=== PATIENT | female | born 1965 | race Caucasian/White ===

== ENCOUNTER 2017-06-06 06:33 | Inpatient (IN) | payer MEDICARE ==
[2017-06-06] VITALS (9 sets, daily range): BP systolic 94–121; BP diastolic 53–68
[~2017-06-06] VITALS: Ht 175.3 cm; Wt 107.0 kg
[2017-06-06] MEDS ORDERED: IV RINGERS,LACTATED 1000ML 1,000 ML IV SCH (07:00)
[2017-06-06] MEDS ORDERED: fentaNYL PF VIAL 100 MCG/2 ML VIAL IV PRN (07:00)
[2017-06-06] MEDS ORDERED: PROCHLORPERAZINE 10 MG/2 ML VIAL. IV PRN (07:00)
[2017-06-06] MEDS ORDERED: HYDROmorphone 2 MG/ML VIAL IV PRN (07:00)
[2017-06-06] MEDS ORDERED: LIDOCAINE 1% PF 2 ML VIAL. ID PRN (07:00)
[2017-06-06] MEDS ORDERED: ONDANSETRON PF 4 MG/2 ML VIAL. IV PRN (07:00)
[2017-06-06] MEDS ORDERED: HYDR4TAB PO (07:01)
[2017-06-06] MEDS ORDERED: HYDR4TAB IV (07:03)
[2017-06-06] MEDS ORDERED: FENT1PAT15 TP (07:03)
[2017-06-06] MEDS ORDERED: SODI20VI2 IV (07:04)
[2017-06-06] MEDS ORDERED: PANT40TA5 PO (07:05)
[2017-06-06] MEDS ORDERED: ESCITALOPRAM OXA5 M1 PO (07:05)
[2017-06-06] MEDS ORDERED: LEVO100T5 IV (07:06)
[2017-06-06] MEDS ORDERED: PROM6.25 IV (07:07)
[2017-06-06] MEDS ORDERED: TRAZ300T2 PO (07:09)
[2017-06-06] MEDS ORDERED: HEPA1DIS12 SUBCUT/PO (07:09)
[2017-06-06] MEDS ORDERED: LORA0.5T PO (07:10)
[2017-06-06] MEDS ORDERED: DIPH50CA PO (07:11)
[2017-06-06] MEDS ORDERED: ACET500T68 PO (07:17)
[2017-06-06 07:33] LABS: HEMOGLOBIN 10.4 g/dL (12.0-15.5)
[2017-06-06 07:37] LABS: INR 1.1 (0.8-1.1); PROTHROMBIN TIME PATIENT 13.6 SEC (11.7-14.0)
[2017-06-06] MEDS ORDERED: PROPOFOL 20 ML IV ONE (07:38)
[2017-06-06] MEDS ORDERED: ROCURONIUM 50 MG/5 ML VIAL. ONE (07:38)
[2017-06-06] MEDS ORDERED: fentaNYL PF VIAL 250 MCG/5 ML VIAL ONE ×2 (07:38→12:38)
[2017-06-06] MEDS ORDERED: MIDAZOLAM HCL/PF 2 MG/2 ML VIAL. ONE (07:38)
[2017-06-06] MEDS ORDERED: LIDOCAINE 2% PF Vial for OR 5 ML VIAL. ONE (07:38)
[2017-06-06 07:51] LABS: CALCIUM 9.4 mg/dL (8.5-10.1); CREATININE 0.8 mg/dL (0.6-1.0); GFR 75.6; POTASSIUM 4.1 mmol/L (3.5-5.1)
--- NOTE | 2017-06-06 08:11 | PDOC ---
SURGICAL PROGRESS NOTE Subjective Pre-Op Note 52 yo F with ECF. Pt examined. Office note H&P reviewed and unchanged. Previous mesh has fallen off. R/B/A d/w pt and pt's family. Risks, including, but not limited to: bleeding, infection, damage to surrounding structures, risk of anesthesia. They appear to understand, their questions are answered and they agree to proceed. Vital Signs Vital Signs Date Time Temp Pulse Resp B/P (MAP) Pulse Ox O2 Delivery O2 Flow Rate FiO2 06/06/17 07:24 97.6 84 16 97/59 94 Room Air 97.6 Labs Laboratory Tests Test 06/06/17 06:40 Hemoglobin 10.4 g/dL (12.0-15.5) Hematocrit 32.0 % (36.0-47.0) Mean Corpuscular Hemoglobin Concent 33 g/dL (31-37) Prothrombin Time 13.6 SEC (11.7-14.0) Prothromb Time International Ratio 1.1 (0.8-1.1) Activated Partial Thromboplast Time 27 SEC (24-38) Heparin Anti-Xa Act, Unfractionated < 0.10 IU/mL (0.30-0.70) Sodium Level 136 mmol/L (136-145) Potassium Level 4.1 mmol/L (3.5-5.1) Chloride Level 98 mmol/L (98-107) Carbon Dioxide Level 27 mmol/L (21-32) Anion Gap 11 (6-14) Blood Urea Nitrogen 19 mg/dL (7-20) Creatinine 0.8 mg/dL (0.6-1.0) Estimated GFR (Cockcroft-Gault) 75.6 Glucose Level 126 mg/dL (70-99) Calcium Level 9.4 mg/dL (8.5-10.1) Laboratory Tests Test 06/06/17 06:40 Hemoglobin 10.4 g/dL (12.0-15.5) Hematocrit 32.0 % (36.0-47.0) Mean Corpuscular Hemoglobin Concent 33 g/dL (31-37) Prothrombin Time 13.6 SEC (11.7-14.0) Prothromb Time International Ratio 1.1 (0.8-1.1) Activated Partial Thromboplast Time 27 SEC (24-38) Heparin Anti-Xa Act, Unfractionated < 0.10 IU/mL (0.30-0.70) Sodium Level 136 mmol/L (136-145) Potassium Level 4.1 mmol/L (3.5-5.1) Chloride Level 98 mmol/L (98-107) Carbon Dioxide Level 27 mmol/L (21-32) Anion Gap 11 (6-14) Blood Urea Nitrogen 19 mg/dL (7-20) Creatinine 0.8 mg/dL (0.6-1.0) Estimated GFR (Cockcroft-Gault) 75.6 Glucose Level 126 mg/dL (70-99) Calcium Level 9.4 mg/dL (8.5-10.1) HAKEEM CANNON MD Jun 06, 2017 08:11
[2017-06-06] MEDS ORDERED: SEVOFLURANE > 120 MINUTES. IH ONE (09:04)
[2017-06-06] MEDS ORDERED: SURGICEL HEMOSTAT 4X8 EACH. ONE (09:06)
[2017-06-06] MEDS ORDERED: SURGICEL HEMOSTAT 4X8 EACH. TP ONE (09:07)
[2017-06-06] MEDS ORDERED: ROCURONIUM 100 MG/10 ML VIAL. ONE (09:08)
[2017-06-06] MEDS ORDERED: ALBUMIN HUMAN 5% 500 ML IV ONE (13:36)
[2017-06-06] MEDS ORDERED: GLYCOPYRROLATE 1 MG/5 ML VIAL. ONE (13:57)
[2017-06-06] MEDS ORDERED: NEOSTIGMINE 10 MG/10 ML VIAL. ONE (13:57)
[2017-06-06] MEDS ORDERED: IV NORMAL SALINE 1000ML BAG 1,000 ML IV SCH (14:41)
[2017-06-06] MEDS ORDERED: NALOXONE 0.4 MG/ML VIAL. IV PRN (14:45)
[2017-06-06] MEDS ORDERED: MORPHINE SULFATE/PF 30 ML IV PRN (14:45)
[2017-06-06] MEDS ORDERED: 0.9 % SODIUM CHLORIDE 10 ML DISP.SYRIN. IV PRN (14:45)
--- NOTE | 2017-06-06 15:09 | PDOC4 ---
OPERATIVE NOTE Date: Date: Jun 06, 2017 Pre-Op Diagnosis: Enterocutaneous fistula Post-Op Diagnosis: same Procedure Performed: Exploratory laparotomy, extensive lysis of adhesions, Excision of enterocutaneous fistula, ileocolic resection, liver laceration repair, ventral incisional hernia repair, debridement of abdominal wall wound Surgeon: Govind Cannon Asst: Justin Campos Anesthesia Type: GETA Blood Loss: 500 Specimans Obtained: colon resection, ECF Findings: Locked in abdomen, small bowel fistula to abdominal wall with related foreign bodies (mesh), adherent colon to pelvis Complications: Liver laceration (inherent to the procedure) Operative Note: After obtaining informed consent, patient was taken to the OR, induced under GETA, and prepped in the usual fashion. Patient noted to have large granulation wound with draining ECF on the right side. Previous mesh has fallen off, but additional mesh debris noted in wound and throughout the abdominal cavity and removed. Patient morbidly obese making procedure difficult throughout. Upper midline incision made away from wound. Fascia entered and liver (fatty in nature) directly below it. Laceration (inherent to the procedure) repaired with cautery and surgicel, without difficulty. Abdominal cavity was locked in with extensive adhesions. An extensive lysis of adhesions was performed, which was the majority of the procedure. One serosal tear was repaired with 3 0 vicryl. The right colon was redundant and extremely adherent to the bladder and deep pelvis. No bladder injury was noted to the bladder. The right ureter was identified by the Liz sign and maintain without injury. Sigmoid colon protected the left ureter and was uninjured. Appendix was surgically absent. Gallbladder surgically absent. Evidence of previous small bowel resection noted with anastomosis to the right colon. Right colon denuded and devascularized with mobilization and adhesiolysis. The abdominal wall wound debrided off, with care taken to take off additional adherent small bowel and transverse colon, which were uninjured. This wound had a segment of small bowel attached. This was resected with LIUDMILA stapler 75. Additionally, the nonviable cecum and terminal ileum were resected with LIUDMILA staplers. Specimens passed off the field and sent to pathology. Patient had short length of bowel prior to resection, approximately 100 cm. After resection , approximately 80 cm remained. A side to side ileocolic anastomosis performed with 75 LIUDMILA stapler and sealed with TA 60. Mesentery closed with 3 0 chromic. Anastomosis noted to be patent, under no tension, and completely viable, without evidence of leak. Abdominal cavity copiously irrigated. No evidence of bleeding or other pathology noted at time of closure. Fascia reapproximated with 0 PDS looped. Retention sutures placed with 1 PDS through fascia only. Wound reapproximated with Multiple interrupted 0 neurolon with a susan place in subcutaneous tissue. Sterile dressing placed over wound. Patient tolerated procedure well. Patient noted for concern for aspiration in PACU. Will be transferred to ICU and placed on antibiotics. Wound class is dirty given fistula. All counts were correct. GOVIND CANNON MD Jun 06, 2017 15:09
[2017-06-06] MEDS: fentaNYL PF VIAL 100 MCG/2 ML VIAL IV PRN ×2 (15:35→16:11)
--- NOTE | 2017-06-06 16:00 | RAD ---
AP view of the abdomen History: Postoperative KUB. Exploratory laparotomy. Findings: Tip of an NG tube is seen within the proximal body of the stomach. Surgical drain is seen within the midline of the abdomen. Multiple densities or calcifications are seen throughout the abdomen and pelvis which may represent residual contrast or medication within the bowel. No obstructive bowel pattern is seen. IMPRESSION: No obstructive bowel pattern or postoperative functional ileus is seen.
--- NOTE | 2017-06-06 16:01 | RAD ---
Portable AP supine chest x-ray performed at 1542 Clinical indications: intubation Comparison: None available. Findings: ET tube is in place and the tip is located 2 cm above the level of the melecio. NG tube is in place and the tip is seen within the proximal body of the stomach. Small left-sided pleural effusion and left lung base infiltrate are seen. Right lung field appears clear. No pneumothorax is evident. Left upper extremity PICC line tip is seen within the left subclavian vein. Surgical pins are seen within the left midlung zone. There is a deformity of the lateral aspect of the left sixth rib consistent with an old healed fracture. Heart size and mediastinum are unremarkable. IMPRESSION: Small left sided pleural effusion and left lung base infiltrate. Left upper extremity PICC line tip is seen within the left subclavian vein.
[2017-06-06] MEDS: MORPHINE SULFATE 4 MG/ML DISP.SYRIN. IV PRN ×4 (16:12→16:51)
[2017-06-06] MEDS: IV RINGERS,LACTATED 1000ML 1,000 ML IV SCH (16:16)
[2017-06-06 16:19] LABS: HCO3 ABG 19 mmol/L (21-28); PCO2 ABG 40 mmHg (35-46); PH ABG 7.29 (7.35-7.45); PO2 ABG 119 mmHg (75-108); SAT O2 ABG 97 % (92-99)
[2017-06-06] MEDS: ENOXAPARIN 40 MG/0.4 ML SYRINGE. SQ SCH (18:16)
--- NOTE | 2017-06-06 18:56 | PDOC ---
PULMONARY PROGRESS NOTES Vitals Vital Signs Date Time Temp Pulse Resp B/P (MAP) Pulse Ox O2 Delivery O2 Flow Rate FiO2 06/06/17 18:15 123 26 119/57 (77) 96 Ventilator 06/06/17 17:30 97.6 97.6 06/06/17 16:11 10.0 Labs Laboratory Tests Test 06/06/17 06:40 06/06/17 15:38 06/06/17 16:19 Hemoglobin 10.4 g/dL (12.0-15.5) Hematocrit 32.0 % (36.0-47.0) Mean Corpuscular Hemoglobin Concent 33 g/dL (31-37) Prothrombin Time 13.6 SEC (11.7-14.0) Prothromb Time International Ratio 1.1 (0.8-1.1) Activated Partial Thromboplast Time 27 SEC (24-38) Heparin Anti-Xa Act, Unfractionated < 0.10 IU/mL (0.30-0.70) Sodium Level 136 mmol/L (136-145) Potassium Level 4.1 mmol/L (3.5-5.1) Chloride Level 98 mmol/L (98-107) Carbon Dioxide Level 27 mmol/L (21-32) Anion Gap 11 (6-14) Blood Urea Nitrogen 19 mg/dL (7-20) Creatinine 0.8 mg/dL (0.6-1.0) Estimated GFR (Cockcroft-Gault) 75.6 Glucose Level 126 mg/dL (70-99) Calcium Level 9.4 mg/dL (8.5-10.1) O2 Saturation 97 % (92-99) Arterial Blood pH 7.29 (7.35-7.45) Arterial Blood pCO2 at Patient Temp 40 mmHg (35-46) Arterial Blood pO2 at Patient Temp 119 mmHg (75-108) Arterial Blood HCO3 19 mmol/L (21-28) Arterial Blood Base Excess -7 mmol/L (-3-3) Glucose (Fingerstick) 157 mg/dL (70-99) Laboratory Tests Test 06/06/17 06:40 06/06/17 15:38 06/06/17 16:19 Hemoglobin 10.4 g/dL (12.0-15.5) Hematocrit 32.0 % (36.0-47.0) Mean Corpuscular Hemoglobin Concent 33 g/dL (31-37) Prothrombin Time 13.6 SEC (11.7-14.0) Prothromb Time International Ratio 1.1 (0.8-1.1) Activated Partial Thromboplast Time 27 SEC (24-38) Heparin Anti-Xa Act, Unfractionated < 0.10 IU/mL (0.30-0.70) Sodium Level 136 mmol/L (136-145) Potassium Level 4.1 mmol/L (3.5-5.1) Chloride Level 98 mmol/L (98-107) Carbon Dioxide Level 27 mmol/L (21-32) Anion Gap 11 (6-14) Blood Urea Nitrogen 19 mg/dL (7-20) Creatinine 0.8 mg/dL (0.6-1.0) Estimated GFR (Cockcroft-Gault) 75.6 Glucose Level 126 mg/dL (70-99) Calcium Level 9.4 mg/dL (8.5-10.1) O2 Saturation 97 % (92-99) Arterial Blood pH 7.29 (7.35-7.45) Arterial Blood pCO2 at Patient Temp 40 mmHg (35-46) Arterial Blood pO2 at Patient Temp 119 mmHg (75-108) Arterial Blood HCO3 19 mmol/L (21-28) Arterial Blood Base Excess -7 mmol/L (-3-3) Glucose (Fingerstick) 157 mg/dL (70-99) Medications Active Scripts Medications Dose Route/Sig Max Daily Dose Days Date Category Acetaminophen 500 Mg Tablet 650 Mg PO EVERY 6 HRS PRN 06/06/17 Reported Diphenhydramine Hcl 50 Mg Capsule 1 Cap PO EVERY 4 HRS PRN 06/06/17 Reported Lorazepam 0.5 Mg Tablet 1 Tab PO EVERY 6 HRS PRN 06/06/17 Reported Trazodone Hcl 300 Mg Tablet 400 Mg PO HS 06/06/17 Reported Heparin 10 Unit/10 Ml (1/Ml) (Heparin Sodium,Porcine/Pf) 1 Unit/1 Ml Disp.syrin 5,000 Unit SUBCUT/PO EVERY 8 HRS 06/06/17 Reported Promethazine Hcl 6.25 Mg/5 Ml Syrup 5 Ml IV TID PRN PRN 06/06/17 Reported Levothyroxine Sodium 100 Mcg Tablet 100 Mcg IV HS 06/06/17 Reported Escitalopram Oxalate 5 Mg Tablet 20 Mg PO DAILY 06/06/17 Reported Pantoprazole Sodium 40 Mg Tablet.dr 1 Tab PO IV 06/06/17 Reported Tpn Electrolytes Ii Iv Soln (Sodium/K+/Mag/Ca/Chlor/Acetate) 20 Ml Vial 20 Ml IV 06/06/17 Reported FENTANYL 25mcg/hr (Fentanyl) 1 Each Patch.td72 1 Patch TP Q3DAYS 06/06/17 Reported Hydromorphone Hcl 4 Mg Tablet 1 Tab IV QIDPRN PRN 06/06/17 Reported Hydromorphone Hcl 4 Mg Tablet 2 Mg PO 06/06/17 Reported Impression . ACUTE RESP FAILURE EXPECTED S/P SURGERY EXPENSIVE SURGERY PT MORBID OBESITY Exploratory laparotomy, extensive lysis of adhesions, Excision of enterocutaneous fistula, ileocolic resection, liver laceration repair, ventral incisional hernia repair, debridement of abdominal wall wound WILL MAINTAIN SEDATED AND TRIAL IN AM THANKS JOLLY CARDOSO MD Jun 06, 2017 18:56
[2017-06-06] MEDS ORDERED: MIDAZOLAM HCL/PF 2 MG/2 ML VIAL. IV PRN (19:00)
[2017-06-06] MEDS: PROPOFOL 100 ML IV PRN ×2 (19:21→22:54)
[2017-06-06] MEDS: CHLORHEXIDINE 0.12% 15 ML MOUTHWASH. SWSP SCH (22:55)
[2017-06-07] VITALS (24 sets, daily range): BP systolic 91–153; BP diastolic 53–76
[2017-06-07] MEDS: IV RINGERS,LACTATED 1000ML 1,000 ML IV SCH ×3 (00:37→20:14)
[2017-06-07] MEDS: PROPOFOL 100 ML IV PRN (03:17)
--- NOTE | 2017-06-07 07:45 | RAD ---
EXAM: Chest one view. HISTORY: Respiratory failure, ventilated. COMPARISON: 06/06/2017. FINDINGS: A frontal view of the chest is obtained. An endotracheal tube has its tip 3 cm above the melecio. A nasogastric tube has its tip below the inferior margin of the field of view. Left arm PICC line appears to terminate in the left brachiocephalic vein. Surgical clips project along left hilum. Left basilar opacity is consistent with a small pleural effusion along with atelectasis or infiltrate. There is no pneumothorax. The heart is not enlarged. IMPRESSION: 1. The left arm PICC line tip appears to be in the left brachiocephalic vein. 2. Stable left basilar atelectasis or infiltrate.
[2017-06-07] MEDS: CHLORHEXIDINE 0.12% 15 ML MOUTHWASH. SWSP SCH (08:32)
[2017-06-07 09:25] LABS: HCO3 ABG 24 mmol/L (21-28); PCO2 ABG 41 mmHg (35-46); PH ABG 7.39 (7.35-7.45); PO2 ABG 141 mmHg (75-108)
[2017-06-07 09:31] LABS: FIO2 ABG 40; SAT O2 ABG 98 % (92-99)
--- NOTE | 2017-06-07 10:14 | PDOC2 ---
GI CONSULT Reason For Consult: Short bowel syndrome HPI: HPI: History from chart - pt awake but intubated. 52 y/o female w/ history of multiple abd surgeries w/ complications involving mesh underwent expl lap, SEAN, excision of ECF, ileocolonic resection, liver lac repair, VIH repair, and debridement of abd wound yesterday w/ Dr. Rachel. Chart indicates issues w/ chronic diarrhea and weight loss. Per RN, was vomiting around NG - no recurrence since adjusted/flushed. PMH: PMH: per chart - HTN, HLD, DM, peripheral neuropathy, anxiety/depression, DVT, endometrial cancer, cholecystectomy, hiatal hernia repair w/ esophageal injury and peritonitis, umbilical hernia repairs, bowel obstruction repair w/ mesh/ complications of fistula, hysterectomy Social History: Smoke: No Drugs: None ROS: Difficult to obtain, has abd pain and nausea. Vitals: Vitals: Vital Signs Date Time Temp Pulse Resp B/P (MAP) Pulse Ox O2 Delivery O2 Flow Rate FiO2 06/07/17 09:00 115 22 153/71 (98) 100 Ventilator 06/07/17 08:00 98.3 98.3 06/06/17 17:30 10.0 Labs: Labs: Laboratory Tests Test 06/06/17 15:38 06/06/17 16:19 06/07/17 08:45 O2 Saturation 97 % (92-99) 98 % (92-99) Arterial Blood pH 7.29 (7.35-7.45) 7.39 (7.35-7.45) Arterial Blood pCO2 at Patient Temp 40 mmHg (35-46) 41 mmHg (35-46) Arterial Blood pO2 at Patient Temp 119 mmHg (75-108) 141 mmHg (75-108) Arterial Blood HCO3 19 mmol/L (21-28) 24 mmol/L (21-28) Arterial Blood Base Excess -7 mmol/L (-3-3) -1 mmol/L (-3-3) Glucose (Fingerstick) 157 mg/dL (70-99) FiO2 40 Allergies: Coded Allergies: Penicillins (Verified Allergy, Severe, Anaphylaxis, 05/29/17) ondansetron (Verified Adverse Reaction, Intermediate, Nausea and Vomiting , 05/29/17) Medications: Current Medications Medications (Trade) Dose Ordered Sig/Maynor Route PRN Reason Start Time Stop Time Status Last Admin Dose Admin Enoxaparin Sodium (Lovenox 40mg Syringe) 40 mg Q24H SQ 06/06/17 15:00 06/06/17 18:16 Ringer's Solution 1,000 ml @ 100 mls/hr Q10H IV 06/06/17 14:41 06/07/17 00:37 Morphine Sulfate 30 ml @ 0 mls/hr CONT PRN PRN IV PROTOCOL 06/06/17 14:45 06/06/17 16:15 Levofloxacin/ Dextrose 150 ml @ 100 mls/hr Q24H IV 06/07/17 08:00 06/07/17 08:31 Propofol 100 ml @ 0 mls/hr CONT PRN IV SEE I/O RECORD 06/06/17 19:00 06/07/17 03:17 Chlorhexidine Gluconate (Peridex) 15 ml BID SWSP 06/06/17 21:00 06/07/17 08:32 Imaging: Imaging: KUB IMPRESSION: No obstructive bowel pattern or postoperative functional ileus is seen. CXR IMPRESSION: 1. The left arm PICC line tip appears to be in the left brachiocephalic vein. 2. Stable left basilar atelectasis or infiltrate. PE: GEN: intubated HEENT: Atraumatic, PERRL LUNGS: vent HEART: tachycardic ABD: bandaged, tender EXTREMITY: No edema SKIN: No rashes, no jaundice NEURO/PSYCH: A & O 3 A/P: A/P: Multiple abd surg w/ complications S/p excision of ECF, SEAN, ileocolonic resection, liver lac repair, VIH repair, debridement of abd wound 06/06/17 Resp failure Vomiting - has NG Diarrhea, weight loss -- Will discuss history further when extubated. Recommend TPN. SBS eventually to assess length of small bowel. PEREZ MUÑOZ Jun 07, 2017 10:13
[2017-06-07 10:29] LABS: BASO % 0 % (0-3); EOS % 0 % (0-3); HEMATOCRIT 27.2 % (36.0-47.0); HEMOGLOBIN 8.7 g/dL (12.0-15.5); LYMPH # 0.9 x10^3/uL (1.0-4.8); LYMPH % 9 % (24-48); MEAN CORPUSCULAR HEMOGLOBIN 24 pg (25-35); MEAN CORPUSCULAR HGB CONC 32 g/dL (31-37); MEAN CORPUSCULAR VOLUME 76 fL (79-100); MONO % 6 % (0-9); NEUT % 84 % (31-73); PLATELET COUNT 166 x10^3/uL (140-400); RED BLOOD COUNT 3.58 x10^6/uL (3.50-5.40); RED CELL DISTRIBUTION WIDTH 16.1 % (11.5-14.5); WHITE BLOOD COUNT 10.2 x10^3/uL (4.0-11.0)
[2017-06-07 10:42] LABS: CALCIUM 7.8 mg/dL (8.5-10.1); CREATININE 0.8 mg/dL (0.6-1.0); GFR 75.6; POTASSIUM 3.9 mmol/L (3.5-5.1)
[2017-06-07] MEDS ORDERED: NALOXONE 0.4 MG/ML VIAL. IV PRN (11:30)
[2017-06-07] MEDS ORDERED: ALTEPLASE 2 MG VIAL INT CAT ONE (12:30)
--- NOTE | 2017-06-07 13:31 | PDOC ---
PROGRESS NOTES Chief Complaint Chief Complaint Enterocutaneous fistula HTN HLD DM Peripheral neuropathy Anxiety/depression DVT Endometrial cancer Cholecystectomy Hiatal hernia repair with esophageal injury and peritonitis Umbilical hernia repair Bowel obstruction with mest/complications of fistual Hysterectomy History of Present Illness History of Present Illness Pt is a pleasant 52 year old female who had surgery yesterday for an enterocutaneous fistula. She has a history of multiple abd surgeries w/ complications involving mesh underwent expl lap, SEAN, excision of ECF, ileocolonic resection, liver lac repair, VIH repair, and debridement of abd wound yesterday w/ Dr. Rachel. Chart indicates issues w/ chronic diarrhea and weight loss. This morning she was extubated and resting comfortably in the ICU. She has a HEAD CHEF for pain control. Discussed plan with pt's family. Will continue to follow. Vitals Vitals Vital Signs Date Time Temp Pulse Resp B/P (MAP) Pulse Ox O2 Delivery O2 Flow Rate FiO2 06/07/17 13:00 96 22 130/65 (86) 95 Nasal Cannula 2.0 06/07/17 12:00 98.6 98.6 Physical Exam General: Alert, Oriented X3, Cooperative, No acute distress Heart: Regular rate, Normal S1, Normal S2 Lungs: Clear Abdomen: Soft, Other (Pain in abdomen) Extremities: No clubbing, No cyanosis Skin: No rashes, No breakdown Labs LABS Laboratory Tests Test 06/06/17 15:38 06/06/17 16:19 06/07/17 08:45 06/07/17 10:00 O2 Saturation 97 % (92-99) 98 % (92-99) Arterial Blood pH 7.29 (7.35-7.45) 7.39 (7.35-7.45) Arterial Blood pCO2 at Patient Temp 40 mmHg (35-46) 41 mmHg (35-46) Arterial Blood pO2 at Patient Temp 119 mmHg (75-108) 141 mmHg (75-108) Arterial Blood HCO3 19 mmol/L (21-28) 24 mmol/L (21-28) Arterial Blood Base Excess -7 mmol/L (-3-3) -1 mmol/L (-3-3) Glucose (Fingerstick) 157 mg/dL (70-99) FiO2 40 White Blood Count 10.2 x10^3/uL (4.0-11.0) Red Blood Count 3.58 x10^6/uL (3.50-5.40) Hemoglobin 8.7 g/dL (12.0-15.5) Hematocrit 27.2 % (36.0-47.0) Mean Corpuscular Volume 76 fL (79-100) Mean Corpuscular Hemoglobin 24 pg (25-35) Mean Corpuscular Hemoglobin Concent 32 g/dL (31-37) Red Cell Distribution Width 16.1 % (11.5-14.5) Platelet Count 166 x10^3/uL (140-400) Neutrophils (%) (Auto) 84 % (31-73) Lymphocytes (%) (Auto) 9 % (24-48) Monocytes (%) (Auto) 6 % (0-9) Eosinophils (%) (Auto) 0 % (0-3) Basophils (%) (Auto) 0 % (0-3) Neutrophils # (Auto) 8.5 x10^3uL (1.8-7.7) Lymphocytes # (Auto) 0.9 x10^3/uL (1.0-4.8) Monocytes # (Auto) 0.6 x10^3/uL (0.0-1.1) Eosinophils # (Auto) 0.0 x10^3/uL (0.0-0.7) Basophils # (Auto) 0.0 x10^3/uL (0.0-0.2) Sodium Level 136 mmol/L (136-145) Potassium Level 3.9 mmol/L (3.5-5.1) Chloride Level 101 mmol/L (98-107) Carbon Dioxide Level 27 mmol/L (21-32) Anion Gap 8 (6-14) Blood Urea Nitrogen 17 mg/dL (7-20) Creatinine 0.8 mg/dL (0.6-1.0) Estimated GFR (Cockcroft-Gault) 75.6 Glucose Level 177 mg/dL (70-99) Calcium Level 7.8 mg/dL (8.5-10.1) Review of Systems Review of Systems Pt complains of abdominal pain and fatigue Assessment and Plan Assessmemt and Plan Assessment: Enterocutaneous fistula HTN HLD DM Peripheral neuropathy Anxiety/depression DVT Endometrial cancer Cholecystectomy Hiatal hernia repair with esophageal injury and peritonitis Umbilical hernia repair Bowel obstruction with mest/complications of fistual Hysterectomy Plan: Ordered UA Continue HEAD CHEF Continue home meds PT/OT Recheck labs Problems: Comment Review of Relevant I have reviewed the following items radha (where applicable) has been applied. Labs Laboratory Tests Test 06/06/17 06:40 06/06/17 07:00 06/06/17 15:38 06/06/17 16:19 Hemoglobin 10.4 g/dL (12.0-15.5) Hematocrit 32.0 % (36.0-47.0) Mean Corpuscular Hemoglobin Concent 33 g/dL (31-37) Prothrombin Time 13.6 SEC (11.7-14.0) Prothromb Time International Ratio 1.1 (0.8-1.1) Activated Partial Thromboplast Time 27 SEC (24-38) Heparin Anti-Xa Act, Unfractionated < 0.10 IU/mL (0.30-0.70) Sodium Level 136 mmol/L (136-145) Potassium Level 4.1 mmol/L (3.5-5.1) Chloride Level 98 mmol/L (98-107) Carbon Dioxide Level 27 mmol/L (21-32) Anion Gap 11 (6-14) Blood Urea Nitrogen 19 mg/dL (7-20) Creatinine 0.8 mg/dL (0.6-1.0) Estimated GFR (Cockcroft-Gault) 75.6 Glucose Level 126 mg/dL (70-99) Calcium Level 9.4 mg/dL (8.5-10.1) Nasal Screen MRSA (PCR) Negative (Negative) O2 Saturation 97 % (92-99) Arterial Blood pH 7.29 (7.35-7.45) Arterial Blood pCO2 at Patient Temp 40 mmHg (35-46) Arterial Blood pO2 at Patient Temp 119 mmHg (75-108) Arterial Blood HCO3 19 mmol/L (21-28) Arterial Blood Base Excess -7 mmol/L (-3-3) Glucose (Fingerstick) 157 mg/dL (70-99) Test 06/07/17 08:45 06/07/17 10:00 O2 Saturation 98 % (92-99) Arterial Blood pH 7.39 (7.35-7.45) Arterial Blood pCO2 at Patient Temp 41 mmHg (35-46) Arterial Blood pO2 at Patient Temp 141 mmHg (75-108) Arterial Blood HCO3 24 mmol/L (21-28) Arterial Blood Base Excess -1 mmol/L (-3-3) FiO2 40 White Blood Count 10.2 x10^3/uL (4.0-11.0) Red Blood Count 3.58 x10^6/uL (3.50-5.40) Hemoglobin 8.7 g/dL (12.0-15.5) Hematocrit 27.2 % (36.0-47.0) Mean Corpuscular Volume 76 fL (79-100) Mean Corpuscular Hemoglobin 24 pg (25-35) Mean Corpuscular Hemoglobin Concent 32 g/dL (31-37) Red Cell Distribution Width 16.1 % (11.5-14.5) Platelet Count 166 x10^3/uL (140-400) Neutrophils (%) (Auto) 84 % (31-73) Lymphocytes (%) (Auto) 9 % (24-48) Monocytes (%) (Auto) 6 % (0-9) Eosinophils (%) (Auto) 0 % (0-3) Basophils (%) (Auto) 0 % (0-3) Neutrophils # (Auto) 8.5 x10^3uL (1.8-7.7) Lymphocytes # (Auto) 0.9 x10^3/uL (1.0-4.8) Monocytes # (Auto) 0.6 x10^3/uL (0.0-1.1) Eosinophils # (Auto) 0.0 x10^3/uL (0.0-0.7) Basophils # (Auto) 0.0 x10^3/uL (0.0-0.2) Sodium Level 136 mmol/L (136-145) Potassium Level 3.9 mmol/L (3.5-5.1) Chloride Level 101 mmol/L (98-107) Carbon Dioxide Level 27 mmol/L (21-32) Anion Gap 8 (6-14) Blood Urea Nitrogen 17 mg/dL (7-20) Creatinine 0.8 mg/dL (0.6-1.0) Estimated GFR (Cockcroft-Gault) 75.6 Glucose Level 177 mg/dL (70-99) Calcium Level 7.8 mg/dL (8.5-10.1) Laboratory Tests Test 06/06/17 15:38 06/06/17 16:19 06/07/17 08:45 06/07/17 10:00 O2 Saturation 97 % (92-99) 98 % (92-99) Arterial Blood pH 7.29 (7.35-7.45) 7.39 (7.35-7.45) Arterial Blood pCO2 at Patient Temp 40 mmHg (35-46) 41 mmHg (35-46) Arterial Blood pO2 at Patient Temp 119 mmHg (75-108) 141 mmHg (75-108) Arterial Blood HCO3 19 mmol/L (21-28) 24 mmol/L (21-28) Arterial Blood Base Excess -7 mmol/L (-3-3) -1 mmol/L (-3-3) Glucose (Fingerstick) 157 mg/dL (70-99) FiO2 40 White Blood Count 10.2 x10^3/uL (4.0-11.0) Red Blood Count 3.58 x10^6/uL (3.50-5.40) Hemoglobin 8.7 g/dL (12.0-15.5) Hematocrit 27.2 % (36.0-47.0) Mean Corpuscular Volume 76 fL (79-100) Mean Corpuscular Hemoglobin 24 pg (25-35) Mean Corpuscular Hemoglobin Concent 32 g/dL (31-37) Red Cell Distribution Width 16.1 % (11.5-14.5) Platelet Count 166 x10^3/uL (140-400) Neutrophils (%) (Auto) 84 % (31-73) Lymphocytes (%) (Auto) 9 % (24-48) Monocytes (%) (Auto) 6 % (0-9) Eosinophils (%) (Auto) 0 % (0-3) Basophils (%) (Auto) 0 % (0-3) Neutrophils # (Auto) 8.5 x10^3uL (1.8-7.7) Lymphocytes # (Auto) 0.9 x10^3/uL (1.0-4.8) Monocytes # (Auto) 0.6 x10^3/uL (0.0-1.1) Eosinophils # (Auto) 0.0 x10^3/uL (0.0-0.7) Basophils # (Auto) 0.0 x10^3/uL (0.0-0.2) Sodium Level 136 mmol/L (136-145) Potassium Level 3.9 mmol/L (3.5-5.1) Chloride Level 101 mmol/L (98-107) Carbon Dioxide Level 27 mmol/L (21-32) Anion Gap 8 (6-14) Blood Urea Nitrogen 17 mg/dL (7-20) Creatinine 0.8 mg/dL (0.6-1.0) Estimated GFR (Cockcroft-Gault) 75.6 Glucose Level 177 mg/dL (70-99) Calcium Level 7.8 mg/dL (8.5-10.1) Medications Current Medications Ondansetron HCl (Zofran) 4 mg PRN Q6HRS PRN IV NAUSEA/VOMITING Last administered on 06/07/17 03:59; Start 06/06/17 at 07:00; Stop 06/07/17 at 06:59 ; Status DC Fentanyl Citrate (Fentanyl 2ml Vial) 25 mcg PRN Q5MIN PRN IV MILD PAIN; Start 06/06/17 at 07:00; Stop 06/07/17 at 06:59; Status DC Fentanyl Citrate (Fentanyl 2ml Vial) 50 mcg PRN Q5MIN PRN IV MODERATE PAIN Last administered on 06/06/17 16:11; Start 06/06/17 at 07:00; Stop 06/07/17 at 06:59; Status DC Morphine Sulfate 1 mg PRN Q10MIN PRN IV SEVERE PAIN Last administered on 16:51; Start 06/06/17 at 07:00; Stop 06/07/17 at 06:59; Status DC Ringer's Solution 1,000 ml @ 0 mls/hr Q0M IV Last administered on 06/06/17 07 :32; Start 06/06/17 at 07:00; Stop 06/06/17 at 18:59; Status DC Lidocaine HCl (Xylocaine-Mpf 1% Vial) 2 ml PRN 1X PRN ID PRIOR TO IV START; Start 06/06/17 at 07:00; Stop 06/07/17 at 06:59; Status DC Hydromorphone HCl (Dilaudid) 0.5 mg PRN Q10MIN PRN IV SEV PAIN, Second choice; Start 06/06/17 at 07:00; Stop 06/07/17 at 06:59; Status DC Prochlorperazine Edisylate (Compazine) 5 mg PACU PRN PRN IV NAUSEA, MRX1 Last administered on 06/06/17 18:12; Start 06/06/17 at 07:00; Stop 06/07/17 at 06:59 ; Status DC Cefoxitin Sodium 50 ml @ As Directed STK-MED ONCE IV ; Start 06/06/17 at 07:20; Stop 06/06/17 at 07:21; Status DC Rocuronium [place] (Zemuron) 50 mg STK-MED ONCE .ROUTE ; Start 06/06/17 at 07:38 ; Stop 06/06/17 at 07:39; Status DC Midazolam HCl (Versed) 2 mg STK-MED ONCE .ROUTE ; Start 06/06/17 at 07:38; Stop 06/06/17 at 07:39; Status DC Fentanyl Citrate (Fentanyl 5ml Vial) 250 mcg STK-MED ONCE .ROUTE ; Start at 07:38; Stop 06/06/17 at 07:39; Status DC Propofol 20 ml @ As Directed STK-MED ONCE IV ; Start 06/06/17 at 07:38; Stop at 07:39; Status DC Lidocaine HCl (Lidocaine Pf 2% Vial) 5 ml STK-MED ONCE .ROUTE ; Start 06/06/17 at 07:38; Stop 06/06/17 at 07:39; Status DC Levofloxacin/ Dextrose 150 ml @ As Directed STK-MED ONCE IV ; Start 06/06/17 at 08:05; Stop 06/06/17 at 08:06; Status DC Levofloxacin/ Dextrose 150 ml @ 0 mls/hr 1X ONCE IV Last administered on 08:33; Start 06/06/17 at 08:15; Stop 06/06/17 at 08:16; Status DC Sevoflurane (Ultane) 90 ml STK-MED ONCE IH ; Start 06/06/17 at 09:04; Stop 06/06 at 09:05; Status DC Cellulose 1 each STK-MED ONCE .ROUTE ; Start 06/06/17 at 09:06; Stop 06/06/17 at 09:07; Status DC Cellulose 1 each STK-MED ONCE TP Last administered on 06/06/17 09:07; Start 06/06/17 at 09:07; Stop 06/06/17 at 09:10; Status DC Rocuronium [place] (Zemuron) 100 mg STK-MED ONCE .ROUTE ; Start 06/06/17 at 09: 08; Stop 06/06/17 at 09:09; Status DC Fentanyl Citrate (Fentanyl 5ml Vial) 250 mcg STK-MED ONCE .ROUTE ; Start at 12:38; Stop 06/06/17 at 12:39; Status DC Albumin Human 500 ml @ As Directed STK-MED ONCE IV ; Start 06/06/17 at 13:36; Stop 06/06/17 at 13:37; Status DC Neostigmine Methylsulfate (Bloxiverz) 10 mg STK-MED ONCE .ROUTE ; Start at 13:57; Stop 06/06/17 at 13:58; Status DC Glycopyrrolate (Robinul) 1 mg STK-MED ONCE .ROUTE ; Start 06/06/17 at 13:57; Stop 06/06/17 at 13:58; Status DC Enoxaparin Sodium (Lovenox 40mg Syringe) 40 mg Q24H SQ Last administered on 18:16; Start 06/06/17 at 15:00 Sodium Chloride (Normal Saline Flush) 3 ml QSHIFT PRN IV AFTER MEDS AND BLOOD DRAWS; Start 06/06/17 at 14:45 Ringer's Solution 1,000 ml @ 100 mls/hr Q10H IV Last administered on 00:37; Start 06/06/17 at 14:41 Naloxone HCl (Narcan) 0.4 mg PRN Q2MIN PRN IV SEE INSTRUCTIONS; Start 06/06/17 at 14:45 Sodium Chloride 1,000 ml @ 25 mls/hr Q24H IV ; Start 06/06/17 at 14:41 Morphine Sulfate 30 ml @ 0 mls/hr CONT PRN PRN IV PROTOCOL Last administered on 06/06/17 16:15; Start 06/06/17 at 14:45 Levofloxacin/ Dextrose 150 ml @ 100 mls/hr Q24H IV Last administered on 08:31; Start 06/07/17 at 08:00 Midazolam HCl (Versed) 2 mg PRN Q1HR PRN IV SEDATION PT ON VENT; Start at 19:00 Propofol 100 ml @ 0 mls/hr CONT PRN IV SEE I/O RECORD Last administered on 06/07 03:17; Start 06/06/17 at 19:00 Chlorhexidine Gluconate (Peridex) 15 ml BID SWSP Last administered on 08:32; Start 06/06/17 at 21:00 Naloxone HCl (Narcan) 0.4 mg PRN Q2MIN PRN IV SEE INSTRUCTIONS; Start 06/07/17 at 11:30 Sodium Chloride 1,000 ml @ 25 mls/hr Q24H IV ; Start 06/07/17 at 11:18 Hydromorphone HCl 30 ml @ 0 mls/hr CONT PRN PRN IV PROTOCOL Last administered on 06/07/17 12:29; Start 06/07/17 at 11:30 Alteplase, Recombinant (Cathflo) 2 mg 1X ONCE INT CAT ; Start 06/07/17 at 12:30 ; Stop 06/07/17 at 12:31; Status DC Active Scripts Active Reported Acetaminophen 500 Mg Tablet 650 Mg PO EVERY 6 HRS PRN Diphenhydramine Hcl 50 Mg Capsule 1 Cap PO EVERY 4 HRS PRN Lorazepam 0.5 Mg Tablet 1 Tab PO EVERY 6 HRS PRN Trazodone Hcl 300 Mg Tablet 400 Mg PO HS Heparin 10 Unit/10 Ml (1/Ml) (Heparin Sodium,Porcine/Pf) 1 Unit/1 Ml Disp.syrin 5,000 Unit SUBCUT/PO EVERY 8 HRS Promethazine Hcl 6.25 Mg/5 Ml Syrup 5 Ml IV TID PRN PRN Levothyroxine Sodium 100 Mcg Tablet 100 Mcg IV HS Escitalopram Oxalate 5 Mg Tablet 20 Mg PO DAILY Pantoprazole Sodium 40 Mg Tablet.dr 1 Tab PO IV Tpn Electrolytes Ii Iv Soln (Sodium/K+/Mag/Ca/Chlor/Acetate) 20 Ml Vial 20 Ml IV FENTANYL 25mcg/hr (Fentanyl) 1 Each Patch.td72 1 Patch TP Q3DAYS Hydromorphone Hcl 4 Mg Tablet 1 Tab IV QIDPRN PRN Hydromorphone Hcl 4 Mg Tablet 2 Mg PO Vitals/I & O Vital Sign - Last 24 Hours 06/06/17 06/06/17 06/06/17 06/06/17 14:47 14:47 15:02 15:17 Temp 99.6 99.6 Pulse 125 142 132 Resp 33 33 30 B/P (MAP) 163/78 142/36 129/57 Pulse Ox 94 87 95 O2 Delivery Mask Simple Mask Ventilator Ventilator O2 Flow Rate 10 10 06/06/17 06/06/17 06/06/17 06/06/17 15:25 15:35 15:38 15:45 Temp 99.9 99.9 Pulse 121 119 Resp 33 34 30 B/P (MAP) 103/51 103/51 Pulse Ox 95 94 96 96 O2 Delivery Ventilator Ventilator Ventilator 06/06/17 06/06/17 06/06/17 06/06/17 16:00 16:11 16:12 16:15 Pulse 115 Resp 35 33 33 33 B/P (MAP) 115/65 Pulse Ox 96 96 96 96 O2 Delivery Ventilator Ventilator Ventilator Ventilator O2 Flow Rate 10.0 06/06/17 06/06/17 06/06/17 06/06/17 16:15 16:21 16:30 16:34 Pulse 118 114 Resp 37 35 33 33 B/P (MAP) 120/68 109/39 Pulse Ox 96 96 94 96 O2 Delivery Ventilator Ventilator Ventilator Ventilator 06/06/17 06/06/17 06/06/17 06/06/17 16:45 16:45 16:51 17:00 Pulse 116 114 Resp 24 33 24 B/P (MAP) 98/37 101/49 Pulse Ox 93 91 92 O2 Delivery Mechanical Ventilator Ventilator Ventilator Ventilator 06/06/17 06/06/17 06/06/17 06/06/17 17:02 17:15 17:30 17:30 Temp 97.6 97.6 Pulse 114 112 Resp 20 22 B/P (MAP) 101/49 94/53 (67) Pulse Ox 92 92 96 O2 Delivery Ventilator Ventilator Ventilator Mechanical Ventilator O2 Flow Rate 10.0 06/06/17 06/06/17 06/06/17 06/06/17 17:45 18:00 18:15 19:00 Pulse 110 128 123 128 Resp 22 24 26 20 B/P (MAP) 107/55 (72) 112/56 (74) 119/57 (77) 118/64 (82) Pulse Ox 97 98 96 100 O2 Delivery Ventilator Ventilator Ventilator Ventilator 06/06/17 06/06/17 06/06/17 06/06/17 19:53 20:00 20:00 21:00 Temp 100.2 100.2 Pulse 120 116 Resp 20 20 B/P (MAP) 121/68 (85) 95/68 (77) Pulse Ox 100 100 100 O2 Delivery Ventilator Ventilator Mechanical Ventilator Ventilator 06/06/17 06/06/17 06/06/17 06/06/17 21:30 22:00 23:00 23:25 Pulse 115 117 Resp 20 20 B/P (MAP) 105/63 (77) 105/65 (78) Pulse Ox 100 99 99 99 O2 Delivery Ventilator Ventilator Ventilator Ventilator 06/06/17 06/07/17 06/07/17 06/07/17 23:59 00:00 01:00 01:05 Temp 99.9 99.9 Pulse 113 112 Resp 20 20 B/P (MAP) 119/67 (84) 109/67 (81) Pulse Ox 99 99 99 O2 Delivery Mechanical Ventilator Ventilator Ventilator Ventilator 06/07/17 06/07/17 06/07/17 06/07/17 02:00 03:00 03:05 04:00 Pulse 110 108 Resp 20 20 B/P (MAP) 116/67 (83) 125/68 (87) Pulse Ox 100 99 100 O2 Delivery Ventilator Ventilator Ventilator Mechanical Ventilator 06/07/17 06/07/17 06/07/17 06/07/17 04:00 05:00 05:00 06:00 Temp 97.0 97.0 Pulse 108 114 114 Resp 20 20 20 B/P (MAP) 124/69 (87) 127/71 (89) 119/67 (84) Pulse Ox 99 100 99 99 O2 Delivery Ventilator Ventilator Ventilator Ventilator 06/07/17 06/07/17 06/07/17 06/07/17 07:00 08:00 08:00 08:30 Temp 98.3 98.3 Pulse 94 109 Resp 20 24 B/P (MAP) 127/58 (81) 141/73 (95) Pulse Ox 100 100 100 O2 Delivery Ventilator Ventilator Mechanical Ventilator Ventilator O2 Flow Rate 2.0 06/07/17 06/07/17 06/07/17 06/07/17 09:00 10:00 11:00 12:00 Temp 98.6 98.6 Pulse 115 103 103 98 Resp 22 20 B/P (MAP) 153/71 (98) 148/76 (100) 127/63 (84) 138/67 (90) Pulse Ox 100 100 96 95 O2 Delivery Ventilator Ventilator Nasal Cannula Nasal Cannula O2 Flow Rate 2.0 2.0 06/07/17 06/07/17 12:29 13:00 Pulse 96 Resp 22 22 B/P (MAP) 130/65 (86) Pulse Ox 96 95 O2 Delivery Nasal Cannula Nasal Cannula O2 Flow Rate 2.0 2.0 Intake and Output 06/07/17 06/07/17 06/08/17 14:59 22:59 06:59 Output Total 130 ml Balance -130 ml Nutrition Consultation Dietary Evaluation: Recommendations by RD: PPN/TPN Comments: REC TPN: 250 g dextrose, 60 g AA, 40 g lipid Expected Outcomes/Goals: Initiation of nutrition within 24 - 48 hrs Interpretation of weight loss: >7.5% in 3 months Malnutrition Findings: Food and Nutrition Intake (Mod: <75% est energy req 7days Weight Status: Morbidly Obese AAMNDA HARDING III DO Jun 07, 2017 13:31
--- NOTE | 2017-06-07 13:37 | PDOC ---
SURGICAL PROGRESS NOTE Subjective Pt with c/o incisional pain, extubated at 1000 Vital Signs Vital Signs Date Time Temp Pulse Resp B/P (MAP) Pulse Ox O2 Delivery O2 Flow Rate FiO2 06/07/17 13:00 96 22 130/65 (86) 95 Nasal Cannula 2.0 06/07/17 12:00 98.6 98.6 I&O Intake and Output 06/08/17 07:00 Output Total 115 ml Balance -115 ml Output Urine Total 115 ml PATIENT HAS A GARCIA: Yes General: Alert, Oriented X3, Cooperative, moderate distress Abdomen: Soft, Other (appropriate incisional pain) Labs Laboratory Tests Test 06/06/17 06:40 06/06/17 07:00 06/06/17 15:38 06/06/17 16:19 Hemoglobin 10.4 g/dL (12.0-15.5) Hematocrit 32.0 % (36.0-47.0) Mean Corpuscular Hemoglobin Concent 33 g/dL (31-37) Prothrombin Time 13.6 SEC (11.7-14.0) Prothromb Time International Ratio 1.1 (0.8-1.1) Activated Partial Thromboplast Time 27 SEC (24-38) Heparin Anti-Xa Act, Unfractionated < 0.10 IU/mL (0.30-0.70) Sodium Level 136 mmol/L (136-145) Potassium Level 4.1 mmol/L (3.5-5.1) Chloride Level 98 mmol/L (98-107) Carbon Dioxide Level 27 mmol/L (21-32) Anion Gap 11 (6-14) Blood Urea Nitrogen 19 mg/dL (7-20) Creatinine 0.8 mg/dL (0.6-1.0) Estimated GFR (Cockcroft-Gault) 75.6 Glucose Level 126 mg/dL (70-99) Calcium Level 9.4 mg/dL (8.5-10.1) Nasal Screen MRSA (PCR) Negative (Negative) O2 Saturation 97 % (92-99) Arterial Blood pH 7.29 (7.35-7.45) Arterial Blood pCO2 at Patient Temp 40 mmHg (35-46) Arterial Blood pO2 at Patient Temp 119 mmHg (75-108) Arterial Blood HCO3 19 mmol/L (21-28) Arterial Blood Base Excess -7 mmol/L (-3-3) Glucose (Fingerstick) 157 mg/dL (70-99) Test 06/07/17 08:45 06/07/17 10:00 O2 Saturation 98 % (92-99) Arterial Blood pH 7.39 (7.35-7.45) Arterial Blood pCO2 at Patient Temp 41 mmHg (35-46) Arterial Blood pO2 at Patient Temp 141 mmHg (75-108) Arterial Blood HCO3 24 mmol/L (21-28) Arterial Blood Base Excess -1 mmol/L (-3-3) FiO2 40 White Blood Count 10.2 x10^3/uL (4.0-11.0) Red Blood Count 3.58 x10^6/uL (3.50-5.40) Hemoglobin 8.7 g/dL (12.0-15.5) Hematocrit 27.2 % (36.0-47.0) Mean Corpuscular Volume 76 fL (79-100) Mean Corpuscular Hemoglobin 24 pg (25-35) Mean Corpuscular Hemoglobin Concent 32 g/dL (31-37) Red Cell Distribution Width 16.1 % (11.5-14.5) Platelet Count 166 x10^3/uL (140-400) Neutrophils (%) (Auto) 84 % (31-73) Lymphocytes (%) (Auto) 9 % (24-48) Monocytes (%) (Auto) 6 % (0-9) Eosinophils (%) (Auto) 0 % (0-3) Basophils (%) (Auto) 0 % (0-3) Neutrophils # (Auto) 8.5 x10^3uL (1.8-7.7) Lymphocytes # (Auto) 0.9 x10^3/uL (1.0-4.8) Monocytes # (Auto) 0.6 x10^3/uL (0.0-1.1) Eosinophils # (Auto) 0.0 x10^3/uL (0.0-0.7) Basophils # (Auto) 0.0 x10^3/uL (0.0-0.2) Sodium Level 136 mmol/L (136-145) Potassium Level 3.9 mmol/L (3.5-5.1) Chloride Level 101 mmol/L (98-107) Carbon Dioxide Level 27 mmol/L (21-32) Anion Gap 8 (6-14) Blood Urea Nitrogen 17 mg/dL (7-20) Creatinine 0.8 mg/dL (0.6-1.0) Estimated GFR (Cockcroft-Gault) 75.6 Glucose Level 177 mg/dL (70-99) Calcium Level 7.8 mg/dL (8.5-10.1) Laboratory Tests Test 06/06/17 15:38 06/06/17 16:19 06/07/17 08:45 06/07/17 10:00 O2 Saturation 97 % (92-99) 98 % (92-99) Arterial Blood pH 7.29 (7.35-7.45) 7.39 (7.35-7.45) Arterial Blood pCO2 at Patient Temp 40 mmHg (35-46) 41 mmHg (35-46) Arterial Blood pO2 at Patient Temp 119 mmHg (75-108) 141 mmHg (75-108) Arterial Blood HCO3 19 mmol/L (21-28) 24 mmol/L (21-28) Arterial Blood Base Excess -7 mmol/L (-3-3) -1 mmol/L (-3-3) Glucose (Fingerstick) 157 mg/dL (70-99) FiO2 40 White Blood Count 10.2 x10^3/uL (4.0-11.0) Red Blood Count 3.58 x10^6/uL (3.50-5.40) Hemoglobin 8.7 g/dL (12.0-15.5) Hematocrit 27.2 % (36.0-47.0) Mean Corpuscular Volume 76 fL (79-100) Mean Corpuscular Hemoglobin 24 pg (25-35) Mean Corpuscular Hemoglobin Concent 32 g/dL (31-37) Red Cell Distribution Width 16.1 % (11.5-14.5) Platelet Count 166 x10^3/uL (140-400) Neutrophils (%) (Auto) 84 % (31-73) Lymphocytes (%) (Auto) 9 % (24-48) Monocytes (%) (Auto) 6 % (0-9) Eosinophils (%) (Auto) 0 % (0-3) Basophils (%) (Auto) 0 % (0-3) Neutrophils # (Auto) 8.5 x10^3uL (1.8-7.7) Lymphocytes # (Auto) 0.9 x10^3/uL (1.0-4.8) Monocytes # (Auto) 0.6 x10^3/uL (0.0-1.1) Eosinophils # (Auto) 0.0 x10^3/uL (0.0-0.7) Basophils # (Auto) 0.0 x10^3/uL (0.0-0.2) Sodium Level 136 mmol/L (136-145) Potassium Level 3.9 mmol/L (3.5-5.1) Chloride Level 101 mmol/L (98-107) Carbon Dioxide Level 27 mmol/L (21-32) Anion Gap 8 (6-14) Blood Urea Nitrogen 17 mg/dL (7-20) Creatinine 0.8 mg/dL (0.6-1.0) Estimated GFR (Cockcroft-Gault) 75.6 Glucose Level 177 mg/dL (70-99) Calcium Level 7.8 mg/dL (8.5-10.1) Problem List s/p xlap change COMMUNICATIONS ANALYST to dilaudid pulm toilet await bowel fxn abx for presumed aspiration, although CXR looks good, and infected surgery Problems: HAKEEM CANNON MD Jun 07, 2017 13:37
--- NOTE | 2017-06-07 15:33 | PDOC ---
PULMONARY PROGRESS NOTES Subjective PT DID WELL ON TRIAL THIS AM NOW EXTUBATED NO RESP DISTRESS Vitals Vital Signs Date Time Temp Pulse Resp B/P (MAP) Pulse Ox O2 Delivery O2 Flow Rate FiO2 06/07/17 15:00 95 20 107/58 (74) 96 Nasal Cannula 2.0 06/07/17 12:00 98.6 98.6 Lungs: Clear, Crackles Cardiovascular: S1, S2 Abdomen: Soft, Other (OBESE) Neuro Exam: Alert Extremities: No Edema Skin: Warm Labs Laboratory Tests Test 06/06/17 06:40 06/06/17 07:00 06/06/17 15:38 06/06/17 16:19 Hemoglobin 10.4 g/dL (12.0-15.5) Hematocrit 32.0 % (36.0-47.0) Mean Corpuscular Hemoglobin Concent 33 g/dL (31-37) Prothrombin Time 13.6 SEC (11.7-14.0) Prothromb Time International Ratio 1.1 (0.8-1.1) Activated Partial Thromboplast Time 27 SEC (24-38) Heparin Anti-Xa Act, Unfractionated < 0.10 IU/mL (0.30-0.70) Sodium Level 136 mmol/L (136-145) Potassium Level 4.1 mmol/L (3.5-5.1) Chloride Level 98 mmol/L (98-107) Carbon Dioxide Level 27 mmol/L (21-32) Anion Gap 11 (6-14) Blood Urea Nitrogen 19 mg/dL (7-20) Creatinine 0.8 mg/dL (0.6-1.0) Estimated GFR (Cockcroft-Gault) 75.6 Glucose Level 126 mg/dL (70-99) Calcium Level 9.4 mg/dL (8.5-10.1) Nasal Screen MRSA (PCR) Negative (Negative) O2 Saturation 97 % (92-99) Arterial Blood pH 7.29 (7.35-7.45) Arterial Blood pCO2 at Patient Temp 40 mmHg (35-46) Arterial Blood pO2 at Patient Temp 119 mmHg (75-108) Arterial Blood HCO3 19 mmol/L (21-28) Arterial Blood Base Excess -7 mmol/L (-3-3) Glucose (Fingerstick) 157 mg/dL (70-99) Test 06/07/17 08:45 06/07/17 10:00 O2 Saturation 98 % (92-99) Arterial Blood pH 7.39 (7.35-7.45) Arterial Blood pCO2 at Patient Temp 41 mmHg (35-46) Arterial Blood pO2 at Patient Temp 141 mmHg (75-108) Arterial Blood HCO3 24 mmol/L (21-28) Arterial Blood Base Excess -1 mmol/L (-3-3) FiO2 40 White Blood Count 10.2 x10^3/uL (4.0-11.0) Red Blood Count 3.58 x10^6/uL (3.50-5.40) Hemoglobin 8.7 g/dL (12.0-15.5) Hematocrit 27.2 % (36.0-47.0) Mean Corpuscular Volume 76 fL (79-100) Mean Corpuscular Hemoglobin 24 pg (25-35) Mean Corpuscular Hemoglobin Concent 32 g/dL (31-37) Red Cell Distribution Width 16.1 % (11.5-14.5) Platelet Count 166 x10^3/uL (140-400) Neutrophils (%) (Auto) 84 % (31-73) Lymphocytes (%) (Auto) 9 % (24-48) Monocytes (%) (Auto) 6 % (0-9) Eosinophils (%) (Auto) 0 % (0-3) Basophils (%) (Auto) 0 % (0-3) Neutrophils # (Auto) 8.5 x10^3uL (1.8-7.7) Lymphocytes # (Auto) 0.9 x10^3/uL (1.0-4.8) Monocytes # (Auto) 0.6 x10^3/uL (0.0-1.1) Eosinophils # (Auto) 0.0 x10^3/uL (0.0-0.7) Basophils # (Auto) 0.0 x10^3/uL (0.0-0.2) Sodium Level 136 mmol/L (136-145) Potassium Level 3.9 mmol/L (3.5-5.1) Chloride Level 101 mmol/L (98-107) Carbon Dioxide Level 27 mmol/L (21-32) Anion Gap 8 (6-14) Blood Urea Nitrogen 17 mg/dL (7-20) Creatinine 0.8 mg/dL (0.6-1.0) Estimated GFR (Cockcroft-Gault) 75.6 Glucose Level 177 mg/dL (70-99) Calcium Level 7.8 mg/dL (8.5-10.1) Laboratory Tests Test 06/06/17 15:38 06/06/17 16:19 06/07/17 08:45 06/07/17 10:00 O2 Saturation 97 % (92-99) 98 % (92-99) Arterial Blood pH 7.29 (7.35-7.45) 7.39 (7.35-7.45) Arterial Blood pCO2 at Patient Temp 40 mmHg (35-46) 41 mmHg (35-46) Arterial Blood pO2 at Patient Temp 119 mmHg (75-108) 141 mmHg (75-108) Arterial Blood HCO3 19 mmol/L (21-28) 24 mmol/L (21-28) Arterial Blood Base Excess -7 mmol/L (-3-3) -1 mmol/L (-3-3) Glucose (Fingerstick) 157 mg/dL (70-99) FiO2 40 White Blood Count 10.2 x10^3/uL (4.0-11.0) Red Blood Count 3.58 x10^6/uL (3.50-5.40) Hemoglobin 8.7 g/dL (12.0-15.5) Hematocrit 27.2 % (36.0-47.0) Mean Corpuscular Volume 76 fL (79-100) Mean Corpuscular Hemoglobin 24 pg (25-35) Mean Corpuscular Hemoglobin Concent 32 g/dL (31-37) Red Cell Distribution Width 16.1 % (11.5-14.5) Platelet Count 166 x10^3/uL (140-400) Neutrophils (%) (Auto) 84 % (31-73) Lymphocytes (%) (Auto) 9 % (24-48) Monocytes (%) (Auto) 6 % (0-9) Eosinophils (%) (Auto) 0 % (0-3) Basophils (%) (Auto) 0 % (0-3) Neutrophils # (Auto) 8.5 x10^3uL (1.8-7.7) Lymphocytes # (Auto) 0.9 x10^3/uL (1.0-4.8) Monocytes # (Auto) 0.6 x10^3/uL (0.0-1.1) Eosinophils # (Auto) 0.0 x10^3/uL (0.0-0.7) Basophils # (Auto) 0.0 x10^3/uL (0.0-0.2) Sodium Level 136 mmol/L (136-145) Potassium Level 3.9 mmol/L (3.5-5.1) Chloride Level 101 mmol/L (98-107) Carbon Dioxide Level 27 mmol/L (21-32) Anion Gap 8 (6-14) Blood Urea Nitrogen 17 mg/dL (7-20) Creatinine 0.8 mg/dL (0.6-1.0) Estimated GFR (Cockcroft-Gault) 75.6 Glucose Level 177 mg/dL (70-99) Calcium Level 7.8 mg/dL (8.5-10.1) Medications Active Scripts Medications Dose Route/Sig Max Daily Dose Days Date Category Acetaminophen 500 Mg Tablet 650 Mg PO EVERY 6 HRS PRN 06/06/17 Reported Diphenhydramine Hcl 50 Mg Capsule 1 Cap PO EVERY 4 HRS PRN 06/06/17 Reported Lorazepam 0.5 Mg Tablet 1 Tab PO EVERY 6 HRS PRN 06/06/17 Reported Trazodone Hcl 300 Mg Tablet 400 Mg PO HS 06/06/17 Reported Heparin 10 Unit/10 Ml (1/Ml) (Heparin Sodium,Porcine/Pf) 1 Unit/1 Ml Disp.syrin 5,000 Unit SUBCUT/PO EVERY 8 HRS 06/06/17 Reported Promethazine Hcl 6.25 Mg/5 Ml Syrup 5 Ml IV TID PRN PRN 06/06/17 Reported Levothyroxine Sodium 100 Mcg Tablet 100 Mcg IV HS 06/06/17 Reported Escitalopram Oxalate 5 Mg Tablet 20 Mg PO DAILY 06/06/17 Reported Pantoprazole Sodium 40 Mg Tablet.dr 1 Tab PO IV 06/06/17 Reported Tpn Electrolytes Ii Iv Soln (Sodium/K+/Mag/Ca/Chlor/Acetate) 20 Ml Vial 20 Ml IV 06/06/17 Reported FENTANYL 25mcg/hr (Fentanyl) 1 Each Patch.td72 1 Patch TP Q3DAYS 06/06/17 Reported Hydromorphone Hcl 4 Mg Tablet 1 Tab IV QIDPRN PRN 06/06/17 Reported Hydromorphone Hcl 4 Mg Tablet 2 Mg PO 06/06/17 Reported Impression . ACUTE RESP FAILURE EXPECTED S/P SURGERY EXPENSIVE SURGERY PT MORBID OBESITY HTN H/O DVT Exploratory laparotomy, extensive lysis of adhesions, Excision of enterocutaneous fistula, ileocolic resection, liver laceration repair, ventral incisional hernia repair, debridement of abdominal wall wound Plan . EXTUBATE POST OP CARE FOLLOW GI INPUT DVT GI PROPH SPOKE WITH FAMILY AT BEDSIDE JOLLY CARDOSO MD Jun 07, 2017 15:33
[2017-06-07] MEDS: ENOXAPARIN 40 MG/0.4 ML SYRINGE. SQ SCH (17:52)
[2017-06-07] MEDS: IV NORMAL SALINE 1000ML BAG 1,000 ML IV SCH (17:53)
[2017-06-07] MEDS: PROCHLORPERAZINE 10 MG/2 ML VIAL. IV PRN (22:51)
[2017-06-08] VITALS (14 sets, daily range): BP systolic 91–115; BP diastolic 40–61
[2017-06-08 01:23] LABS: BILIRUBIN,URINE SMALL (NEG); GLUCOSE,URINE NEGATIVE (NEG); NITRITE,URINE NEGATIVE (NEG); PROTEIN,URINE NEGATIVE (NEG-TRACE)
[2017-06-08 01:28] LABS: BACTERIA,URINE 0 /HPF (0-FEW); SQUAMOUS EPITHELIAL CELL,UR OCC /LPF; WBC,URINE OCC /HPF (0-4)
--- NOTE | 2017-06-08 04:28 | CONS ---
DATE OF CONSULTATION: 06/06/2017 ATTENDING PHYSICIAN: Dr. Govind Rachel. REASON FOR CONSULTATION: The patient seen in pulmonary consultation at the request of Dr. Rachel for vent management and expected respiratory failure after extensive surgery in a morbid obese individual. HISTORY OF PRESENT ILLNESS: The patient underwent exploratory laparotomy, extensive lysis of adhesions, excision of an enterocutaneous fistula, ileocolic resection, liver laceration repair, ventral hernia repair and debridement of abdominal wall wound. The patient was extubated in the recovery room. She was having difficulty with increasing shortness of breath, metabolic, along with a respiratory acidosis. The patient was reintubated. I was asked to see her in consultation for further evaluation and management. PAST MEDICAL HISTORY: Remarkable for hypertension, diabetes, peripheral neuropathy, anxiety, depression, DVT, endometrial cancer. PAST SURGICAL HISTORY: She is status post cholecystectomy, hernia repair, esophageal injury in the past leading to peritonitis, umbilical hernia repair, bowel obstruction repair with previous mesh. ALLERGIES: PENICILLIN AND ONDANSETRON. SOCIAL HISTORY: She has never smoked. There is no history of oxygen supplementation at home. REVIEW OF SYSTEMS: Unobtainable secondary to the patient's condition. PHYSICAL EXAMINATION: GENERAL: The patient was on mechanical ventilation. VITAL SIGNS: Stable. She had a T-max of 100.2. HEENT: Eyes, the sclerae were nonicteric. NECK: Jugular venous distention could not be assessed secondary to body habitus. CHEST: Full expansion. LUNGS: Adequate airway flow, no wheezes. CARDIOVASCULAR: Distant heart sounds with S1, S2, no S3. ABDOMEN: Obese, soft. Dressing in place. EXTREMITIES: No clubbing, cyanosis or pitting edema. NEUROLOGIC: The patient was sedated on mechanical ventilation. LABORATORY DATA: White count was 10,000, hemoglobin of 8, hematocrit 27, platelet count was 166. Arterial blood gas noted. INR was 1.1. Electrolytes were noted. IMAGING: Chest x-ray was reviewed. There was minimal left-sided infiltrate and effusion. IMPRESSION: 1. Acute respiratory failure, expected status post extensive surgery to the abdomen in a morbid obese individual with multiple comorbidities. 2. Hypertension. 3. Diabetes. 4. Peripheral neuropathy. 5. Anxiety and depression. 6. History of deep venous thrombosis. 7. Endometrial cancer. 8. Prior history of esophageal injury with peritonitis. PLAN: 1. We will maintain her intubated overnight, we will trial in the morning and possibly extubate. 2. DVT and gastrointestinal prophylaxis per Dr. Rachel. 3. Nutritional support per TPN or PPN. 4. Consult GI. I do appreciate the privilege in sharing in the patient's care. JOLLY CARDOSO MD DR: GIANLUCA/holden JOB#: [id number] / [id number]
[2017-06-08] MEDS: IV RINGERS,LACTATED 1000ML 1,000 ML IV SCH (06:32)
[2017-06-08 06:52] LABS: BASO % 0 % (0-3); EOS % 3 % (0-3); HEMATOCRIT 21.7 % (36.0-47.0); LYMPH # 1.3 x10^3/uL (1.0-4.8); LYMPH % 16 % (24-48); MEAN CORPUSCULAR HEMOGLOBIN 25 pg (25-35); MEAN CORPUSCULAR HGB CONC 32 g/dL (31-37); MEAN CORPUSCULAR VOLUME 77 fL (79-100); MONO % 4 % (0-9); NEUT % 77 % (31-73); PLATELET COUNT 153 x10^3/uL (140-400); RED BLOOD COUNT 2.84 x10^6/uL (3.50-5.40); RED CELL DISTRIBUTION WIDTH 16.3 % (11.5-14.5); WHITE BLOOD COUNT 8.4 x10^3/uL (4.0-11.0)
[2017-06-08 07:06] LABS: CALCIUM 8.3 mg/dL (8.5-10.1); CREATININE 0.5 mg/dL (0.6-1.0); GFR 130.1; POTASSIUM 3.7 mmol/L (3.5-5.1)
[2017-06-08] MEDS: IV NORMAL SALINE 1000ML BAG 1,000 ML IV SCH (08:37)
--- NOTE | 2017-06-08 10:18 | PDOC ---
SURGICAL PROGRESS NOTE Subjective awake pain managed Vital Signs Vital Signs Date Time Temp Pulse Resp B/P (MAP) Pulse Ox O2 Delivery O2 Flow Rate FiO2 06/08/17 06:00 85 15 102/54 (70) 99 Nasal Cannula 2.0 06/08/17 00:00 97.7 97.7 PATIENT HAS A GARCIA: Yes General: Cooperative, No acute distress HEENT: Other (ng in place) Abdomen: Soft, Other (serosang drainage to incision) Labs Laboratory Tests Test 06/06/17 15:38 06/06/17 16:19 06/07/17 08:45 06/07/17 10:00 O2 Saturation 97 % (92-99) 98 % (92-99) Arterial Blood pH 7.29 (7.35-7.45) 7.39 (7.35-7.45) Arterial Blood pCO2 at Patient Temp 40 mmHg (35-46) 41 mmHg (35-46) Arterial Blood pO2 at Patient Temp 119 mmHg (75-108) 141 mmHg (75-108) Arterial Blood HCO3 19 mmol/L (21-28) 24 mmol/L (21-28) Arterial Blood Base Excess -7 mmol/L (-3-3) -1 mmol/L (-3-3) Glucose (Fingerstick) 157 mg/dL (70-99) FiO2 40 White Blood Count 10.2 x10^3/uL (4.0-11.0) Red Blood Count 3.58 x10^6/uL (3.50-5.40) Hemoglobin 8.7 g/dL (12.0-15.5) Hematocrit 27.2 % (36.0-47.0) Mean Corpuscular Volume 76 fL (79-100) Mean Corpuscular Hemoglobin 24 pg (25-35) Mean Corpuscular Hemoglobin Concent 32 g/dL (31-37) Red Cell Distribution Width 16.1 % (11.5-14.5) Platelet Count 166 x10^3/uL (140-400) Neutrophils (%) (Auto) 84 % (31-73) Lymphocytes (%) (Auto) 9 % (24-48) Monocytes (%) (Auto) 6 % (0-9) Eosinophils (%) (Auto) 0 % (0-3) Basophils (%) (Auto) 0 % (0-3) Neutrophils # (Auto) 8.5 x10^3uL (1.8-7.7) Lymphocytes # (Auto) 0.9 x10^3/uL (1.0-4.8) Monocytes # (Auto) 0.6 x10^3/uL (0.0-1.1) Eosinophils # (Auto) 0.0 x10^3/uL (0.0-0.7) Basophils # (Auto) 0.0 x10^3/uL (0.0-0.2) Sodium Level 136 mmol/L (136-145) Potassium Level 3.9 mmol/L (3.5-5.1) Chloride Level 101 mmol/L (98-107) Carbon Dioxide Level 27 mmol/L (21-32) Anion Gap 8 (6-14) Blood Urea Nitrogen 17 mg/dL (7-20) Creatinine 0.8 mg/dL (0.6-1.0) Estimated GFR (Cockcroft-Gault) 75.6 Glucose Level 177 mg/dL (70-99) Calcium Level 7.8 mg/dL (8.5-10.1) Test 06/07/17 23:10 06/08/17 06:20 Urine Collection Type U cath Urine Color [place] Urine Clarity Clear Urine pH 6.0 Urine Specific [place] 1.025 Urine Protein Negative mg/dL (NEG-TRACE) Urine Glucose (UA) Negative mg/dL (NEG) Urine Ketones (Stick) Negative mg/dL (NEG) Urine Blood Negative (NEG) Urine Nitrite Negative (NEG) Urine Bilirubin Small (NEG) Urine Urobilinogen Dipstick 1.0 mg/dL (0.2 mg/dL) Urine Leukocyte Esterase Negative (NEG) Urine RBC 1-2 /HPF (0-2) Urine WBC Occ /HPF (0-4) Urine Squamous Epithelial Cells Occ /LPF Urine Bacteria 0 /HPF (0-FEW) Urine Mucus Mod /LPF White Blood Count 8.4 x10^3/uL (4.0-11.0) Red Blood Count 2.84 x10^6/uL (3.50-5.40) Hemoglobin 7.0 g/dL (12.0-15.5) Hematocrit 21.7 % (36.0-47.0) Mean Corpuscular Volume 77 fL (79-100) Mean Corpuscular Hemoglobin 25 pg (25-35) Mean Corpuscular Hemoglobin Concent 32 g/dL (31-37) Red Cell Distribution Width 16.3 % (11.5-14.5) Platelet Count 153 x10^3/uL (140-400) Neutrophils (%) (Auto) 77 % (31-73) Lymphocytes (%) (Auto) 16 % (24-48) Monocytes (%) (Auto) 4 % (0-9) Eosinophils (%) (Auto) 3 % (0-3) Basophils (%) (Auto) 0 % (0-3) Neutrophils # (Auto) 6.5 x10^3uL (1.8-7.7) Lymphocytes # (Auto) 1.3 x10^3/uL (1.0-4.8) Monocytes # (Auto) 0.3 x10^3/uL (0.0-1.1) Eosinophils # (Auto) 0.3 x10^3/uL (0.0-0.7) Basophils # (Auto) 0.0 x10^3/uL (0.0-0.2) Sodium Level 138 mmol/L (136-145) Potassium Level 3.7 mmol/L (3.5-5.1) Chloride Level 103 mmol/L (98-107) Carbon Dioxide Level 31 mmol/L (21-32) Anion Gap 4 (6-14) Blood Urea Nitrogen 12 mg/dL (7-20) Creatinine 0.5 mg/dL (0.6-1.0) Estimated GFR (Cockcroft-Gault) 130.1 Glucose Level 118 mg/dL (70-99) Calcium Level 8.3 mg/dL (8.5-10.1) Laboratory Tests Test 06/07/17 23:10 06/08/17 06:20 Urine Collection Type U cath Urine Color [place] Urine Clarity Clear Urine pH 6.0 Urine Specific [place] 1.025 Urine Protein Negative mg/dL (NEG-TRACE) Urine Glucose (UA) Negative mg/dL (NEG) Urine Ketones (Stick) Negative mg/dL (NEG) Urine Blood Negative (NEG) Urine Nitrite Negative (NEG) Urine Bilirubin Small (NEG) Urine Urobilinogen Dipstick 1.0 mg/dL (0.2 mg/dL) Urine Leukocyte Esterase Negative (NEG) Urine RBC 1-2 /HPF (0-2) Urine WBC Occ /HPF (0-4) Urine Squamous Epithelial Cells Occ /LPF Urine Bacteria 0 /HPF (0-FEW) Urine Mucus Mod /LPF White Blood Count 8.4 x10^3/uL (4.0-11.0) Red Blood Count 2.84 x10^6/uL (3.50-5.40) Hemoglobin 7.0 g/dL (12.0-15.5) Hematocrit 21.7 % (36.0-47.0) Mean Corpuscular Volume 77 fL (79-100) Mean Corpuscular Hemoglobin 25 pg (25-35) Mean Corpuscular Hemoglobin Concent 32 g/dL (31-37) Red Cell Distribution Width 16.3 % (11.5-14.5) Platelet Count 153 x10^3/uL (140-400) Neutrophils (%) (Auto) 77 % (31-73) Lymphocytes (%) (Auto) 16 % (24-48) Monocytes (%) (Auto) 4 % (0-9) Eosinophils (%) (Auto) 3 % (0-3) Basophils (%) (Auto) 0 % (0-3) Neutrophils # (Auto) 6.5 x10^3uL (1.8-7.7) Lymphocytes # (Auto) 1.3 x10^3/uL (1.0-4.8) Monocytes # (Auto) 0.3 x10^3/uL (0.0-1.1) Eosinophils # (Auto) 0.3 x10^3/uL (0.0-0.7) Basophils # (Auto) 0.0 x10^3/uL (0.0-0.2) Sodium Level 138 mmol/L (136-145) Potassium Level 3.7 mmol/L (3.5-5.1) Chloride Level 103 mmol/L (98-107) Carbon Dioxide Level 31 mmol/L (21-32) Anion Gap 4 (6-14) Blood Urea Nitrogen 12 mg/dL (7-20) Creatinine 0.5 mg/dL (0.6-1.0) Estimated GFR (Cockcroft-Gault) 130.1 Glucose Level 118 mg/dL (70-99) Calcium Level 8.3 mg/dL (8.5-10.1) Assessment/Plan s/p xlap supportive care 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
[2017-06-08 10:24] LABS: MAGNESIUM 1.6 mg/dL (1.8-2.4); PHOSPHORUS 2.6 mg/dL (2.6-4.7)
--- NOTE | 2017-06-08 11:15 | PDOC ---
Subjective: Subjective: Abd pain. Objective: Objective: Extubated. Hgb 7, RN says d/w surgery, holding on transfusion. Vital Signs: Vital Signs Date Time Temp Pulse Resp B/P (MAP) Pulse Ox O2 Delivery O2 Flow Rate FiO2 06/08/17 06:00 85 15 102/54 (70) 99 Nasal Cannula 2.0 06/08/17 00:00 97.7 97.7 Labs: Laboratory Tests Test 06/07/17 23:10 06/08/17 06:20 Urine Collection Type U cath Urine Color [place] Urine Clarity Clear Urine pH 6.0 Urine Specific [place] 1.025 Urine Protein Negative mg/dL Urine Glucose (UA) Negative mg/dL Urine Ketones (Stick) Negative mg/dL Urine Blood Negative Urine Nitrite Negative Urine Bilirubin Small Urine Urobilinogen Dipstick 1.0 mg/dL Urine Leukocyte Esterase Negative Urine RBC 1-2 /HPF Urine WBC Occ /HPF Urine Squamous Epithelial Cells Occ /LPF Urine Bacteria 0 /HPF Urine Mucus Mod /LPF White Blood Count 8.4 x10^3/uL Red Blood Count 2.84 x10^6/uL Hemoglobin 7.0 g/dL Hematocrit 21.7 % Mean Corpuscular Volume 77 fL Mean Corpuscular Hemoglobin 25 pg Mean Corpuscular Hemoglobin Concent 32 g/dL Red Cell Distribution Width 16.3 % Platelet Count 153 x10^3/uL Neutrophils (%) (Auto) 77 % Lymphocytes (%) (Auto) 16 % Monocytes (%) (Auto) 4 % Eosinophils (%) (Auto) 3 % Basophils (%) (Auto) 0 % Neutrophils # (Auto) 6.5 x10^3uL Lymphocytes # (Auto) 1.3 x10^3/uL Monocytes # (Auto) 0.3 x10^3/uL Eosinophils # (Auto) 0.3 x10^3/uL Basophils # (Auto) 0.0 x10^3/uL Sodium Level 138 mmol/L Potassium Level 3.7 mmol/L Chloride Level 103 mmol/L Carbon Dioxide Level 31 mmol/L Anion Gap 4 Blood Urea Nitrogen 12 mg/dL Creatinine 0.5 mg/dL Estimated GFR (Cockcroft-Gault) 130.1 Glucose Level 118 mg/dL Calcium Level 8.3 mg/dL Phosphorus Level 2.6 mg/dL Magnesium Level 1.6 mg/dL Albumin 2.0 g/dL PE: GEN: NAD LUNGS: nasal cannula HEART: RRR ABD: NG, tender, incisional drainage NEURO/PSYCH: A & O 3 A/P: Multiple abd surg w/ complications -h/o diarrhea, weight loss -s/p excision of ECF, SEAN, ileocolonic resection, liver lac repair, VIH repair, debridement of abd wound 06/06/17 -has NG Resp failure - extubated Anemia -- Continue per surgery. Recommend TPN - d/w RN who will review w/ primary. Monitor Hgb. PEREZ MUÑOZ Jun 08, 2017 11:14
--- NOTE | 2017-06-08 12:47 | HP ---
ADMIT DATE: 06/07/2017 CHIEF COMPLAINT: Postop extensive abdominal surgery with a ventral hernia repair, enterocutaneous fistula repair, request for postop medical evaluation and treatment of comorbidities. HISTORY OF PRESENT ILLNESS: The patient is a pleasant middle-aged female who basically underwent a large surgery a couple of days ago. She underwent exploratory laparotomy with extensive lysis of adhesions, excision of an enterocutaneous fistula, an ileocolic resection, liver laceration repair, ventral hernia repair and debridement of abdominal wound. We have been requested for postop medical evaluation and treatment of comorbidities. PAST MEDICAL HISTORY: Extensive including obesity, chronic wound, enterocutaneous fistula, polypharmacy, depression, anxiety, chronic pain, hypothyroidism, GERD, insomnia. ALLERGIES: PENICILLIN AND ONDANSETRON. FAMILY HISTORY: Coronary artery disease. SOCIAL HISTORY: She does not drink, smoke or take drugs. MEDICATIONS: Reviewed. She is on Tylenol, Benadryl, fentanyl, heparin, hydromorphone, Synthroid, lorazepam, Protonix, promethazine, electrolyte replacement and trazodone. REVIEW OF SYSTEMS: Unreliable. The patient is too sedated. PHYSICAL EXAMINATION: VITAL SIGNS: Temperature afebrile. Her highest temperature has been 99.6, pulse 90, respirations 20, blood pressure 113/51. GENERAL: She is sleeping. She awakens and then goes back to sleep. She is on oxygen. HEART: Distant S1, S2. LUNGS: Slight crackles, diminished. ABDOMEN: Soft, obese. There is a large abdominal binder. There is clean, dry and intact dressing. ENDOCRINE: No thyromegaly. LYMPHATICS: No cervical nodes. HEMATOPOIETIC: No bruising. LABORATORY DATA: White count 10, hemoglobin is 7.0, platelets are down to 153. Electrolytes: Sodium 138, potassium 3.7, chloride 103, bicarbonate 31, BUN 12, creatinine 0.5, glucose 118, albumin is low at 2. Urinalysis negative. INR 1. MRSA screen is negative. ASSESSMENT AND PLAN: Postop extensive abdominal surgery in an elderly female with the above noted comorbidities. I agree with ICU monitoring. She is going to need aggressive wound care and physical therapy, occupational therapy and I will put in LTAC evaluation for [facility] in case she needs that after a few days. We will go ahead and start TPN. Frequent labs, PT, OT and home meds. We will consider transfusion if her hemoglobin drops much lower. Thank you very much for allowing us to participate in the care of this nice lady. We will follow. AMANDA HARDING DO DR: JEREMÍAS/holden JOB#: [id number] / [id number]
--- NOTE | 2017-06-08 13:01 | PDOC ---
PROGRESS NOTES Chief Complaint Chief Complaint Enterocutaneous fistula HTN HLD DM Peripheral neuropathy Anxiety/depression DVT Endometrial cancer Cholecystectomy Hiatal hernia repair with esophageal injury and peritonitis Umbilical hernia repair Bowel obstruction with mest/complications of fistual Hysterectomy History of Present Illness History of Present Illness Pt is a pleasant 52 year old female who had surgery for an enterocutaneous fistula. She has a history of multiple abd surgeries w/ complications involving mesh underwent expl lap, SEAN, excision of ECF, ileocolonic resection, liver lac repair, VIH repair, and debridement of abd wound w/ Dr. Rachel. Chart indicates issues w/ chronic diarrhea and weight loss. Pt is resting comfortably in the ICU. She is on PO Dilaudid for pain relief. Pt will start TPN. Will hold off on transfusion. Labs indicated Hgb of 7.0. Will check Hgn in the am. Discussed plan with pt's RN. Will continue to follow. Vitals Vitals Vital Signs Date Time Temp Pulse Resp B/P (MAP) Pulse Ox O2 Delivery O2 Flow Rate FiO2 06/08/17 12:00 Nasal Cannula 2.0 06/08/17 06:00 85 15 102/54 (70) 99 06/08/17 00:00 97.7 97.7 Physical Exam General: Alert, Oriented X3, Cooperative, No acute distress Heart: Regular rate, Normal S1, Normal S2 Lungs: Crackles Abdomen: Soft, Other (serosang drainage to incision) Extremities: No clubbing, No cyanosis Skin: No rashes, No breakdown Labs LABS Laboratory Tests Test 06/07/17 23:10 06/08/17 06:20 Urine Collection Type U cath Urine Color [place] Urine Clarity Clear Urine pH 6.0 Urine Specific [place] 1.025 Urine Protein Negative mg/dL (NEG-TRACE) Urine Glucose (UA) Negative mg/dL (NEG) Urine Ketones (Stick) Negative mg/dL (NEG) Urine Blood Negative (NEG) Urine Nitrite Negative (NEG) Urine Bilirubin Small (NEG) Urine Urobilinogen Dipstick 1.0 mg/dL (0.2 mg/dL) Urine Leukocyte Esterase Negative (NEG) Urine RBC 1-2 /HPF (0-2) Urine WBC Occ /HPF (0-4) Urine Squamous Epithelial Cells Occ /LPF Urine Bacteria 0 /HPF (0-FEW) Urine Mucus Mod /LPF White Blood Count 8.4 x10^3/uL (4.0-11.0) Red Blood Count 2.84 x10^6/uL (3.50-5.40) Hemoglobin 7.0 g/dL (12.0-15.5) Hematocrit 21.7 % (36.0-47.0) Mean Corpuscular Volume 77 fL (79-100) Mean Corpuscular Hemoglobin 25 pg (25-35) Mean Corpuscular Hemoglobin Concent 32 g/dL (31-37) Red Cell Distribution Width 16.3 % (11.5-14.5) Platelet Count 153 x10^3/uL (140-400) Neutrophils (%) (Auto) 77 % (31-73) Lymphocytes (%) (Auto) 16 % (24-48) Monocytes (%) (Auto) 4 % (0-9) Eosinophils (%) (Auto) 3 % (0-3) Basophils (%) (Auto) 0 % (0-3) Neutrophils # (Auto) 6.5 x10^3uL (1.8-7.7) Lymphocytes # (Auto) 1.3 x10^3/uL (1.0-4.8) Monocytes # (Auto) 0.3 x10^3/uL (0.0-1.1) Eosinophils # (Auto) 0.3 x10^3/uL (0.0-0.7) Basophils # (Auto) 0.0 x10^3/uL (0.0-0.2) Sodium Level 138 mmol/L (136-145) Potassium Level 3.7 mmol/L (3.5-5.1) Chloride Level 103 mmol/L (98-107) Carbon Dioxide Level 31 mmol/L (21-32) Anion Gap 4 (6-14) Blood Urea Nitrogen 12 mg/dL (7-20) Creatinine 0.5 mg/dL (0.6-1.0) Estimated GFR (Cockcroft-Gault) 130.1 Glucose Level 118 mg/dL (70-99) Calcium Level 8.3 mg/dL (8.5-10.1) Phosphorus Level 2.6 mg/dL (2.6-4.7) Magnesium Level 1.6 mg/dL (1.8-2.4) Albumin 2.0 g/dL (3.4-5.0) Review of Systems Review of Systems Pt complains of minor pain and fatigue Assessment and Plan Assessmemt and Plan Assessment: Enterocutaneous fistula HTN HLD DM Peripheral neuropathy Anxiety/depression DVT Endometrial cancer Cholecystectomy Hiatal hernia repair with esophageal injury and peritonitis Umbilical hernia repair Bowel obstruction with mest/complications of fistual Hysterectomy Plan: Continue TPN Recheck Hgb in the am PT/OT Appreciate subspecialty input Recheck labs Continue ICU monitoring Problems: Comment Review of Relevant I have reviewed the following items radha (where applicable) has been applied. Labs Laboratory Tests Test 06/06/17 15:38 06/06/17 16:19 06/07/17 08:45 06/07/17 10:00 O2 Saturation 97 % (92-99) 98 % (92-99) Arterial Blood pH 7.29 (7.35-7.45) 7.39 (7.35-7.45) Arterial Blood pCO2 at Patient Temp 40 mmHg (35-46) 41 mmHg (35-46) Arterial Blood pO2 at Patient Temp 119 mmHg (75-108) 141 mmHg (75-108) Arterial Blood HCO3 19 mmol/L (21-28) 24 mmol/L (21-28) Arterial Blood Base Excess -7 mmol/L (-3-3) -1 mmol/L (-3-3) Glucose (Fingerstick) 157 mg/dL (70-99) FiO2 40 White Blood Count 10.2 x10^3/uL (4.0-11.0) Red Blood Count 3.58 x10^6/uL (3.50-5.40) Hemoglobin 8.7 g/dL (12.0-15.5) Hematocrit 27.2 % (36.0-47.0) Mean Corpuscular Volume 76 fL (79-100) Mean Corpuscular Hemoglobin 24 pg (25-35) Mean Corpuscular Hemoglobin Concent 32 g/dL (31-37) Red Cell Distribution Width 16.1 % (11.5-14.5) Platelet Count 166 x10^3/uL (140-400) Neutrophils (%) (Auto) 84 % (31-73) Lymphocytes (%) (Auto) 9 % (24-48) Monocytes (%) (Auto) 6 % (0-9) Eosinophils (%) (Auto) 0 % (0-3) Basophils (%) (Auto) 0 % (0-3) Neutrophils # (Auto) 8.5 x10^3uL (1.8-7.7) Lymphocytes # (Auto) 0.9 x10^3/uL (1.0-4.8) Monocytes # (Auto) 0.6 x10^3/uL (0.0-1.1) Eosinophils # (Auto) 0.0 x10^3/uL (0.0-0.7) Basophils # (Auto) 0.0 x10^3/uL (0.0-0.2) Sodium Level 136 mmol/L (136-145) Potassium Level 3.9 mmol/L (3.5-5.1) Chloride Level 101 mmol/L (98-107) Carbon Dioxide Level 27 mmol/L (21-32) Anion Gap 8 (6-14) Blood Urea Nitrogen 17 mg/dL (7-20) Creatinine 0.8 mg/dL (0.6-1.0) Estimated GFR (Cockcroft-Gault) 75.6 Glucose Level 177 mg/dL (70-99) Calcium Level 7.8 mg/dL (8.5-10.1) Test 06/07/17 23:10 06/08/17 06:20 Urine Collection Type U cath Urine Color [place] Urine Clarity Clear Urine pH 6.0 Urine Specific [place] 1.025 Urine Protein Negative mg/dL (NEG-TRACE) Urine Glucose (UA) Negative mg/dL (NEG) Urine Ketones (Stick) Negative mg/dL (NEG) Urine Blood Negative (NEG) Urine Nitrite Negative (NEG) Urine Bilirubin Small (NEG) Urine Urobilinogen Dipstick 1.0 mg/dL (0.2 mg/dL) Urine Leukocyte Esterase Negative (NEG) Urine RBC 1-2 /HPF (0-2) Urine WBC Occ /HPF (0-4) Urine Squamous Epithelial Cells Occ /LPF Urine Bacteria 0 /HPF (0-FEW) Urine Mucus Mod /LPF White Blood Count 8.4 x10^3/uL (4.0-11.0) Red Blood Count 2.84 x10^6/uL (3.50-5.40) Hemoglobin 7.0 g/dL (12.0-15.5) Hematocrit 21.7 % (36.0-47.0) Mean Corpuscular Volume 77 fL (79-100) Mean Corpuscular Hemoglobin 25 pg (25-35) Mean Corpuscular Hemoglobin Concent 32 g/dL (31-37) Red Cell Distribution Width 16.3 % (11.5-14.5) Platelet Count 153 x10^3/uL (140-400) Neutrophils (%) (Auto) 77 % (31-73) Lymphocytes (%) (Auto) 16 % (24-48) Monocytes (%) (Auto) 4 % (0-9) Eosinophils (%) (Auto) 3 % (0-3) Basophils (%) (Auto) 0 % (0-3) Neutrophils # (Auto) 6.5 x10^3uL (1.8-7.7) Lymphocytes # (Auto) 1.3 x10^3/uL (1.0-4.8) Monocytes # (Auto) 0.3 x10^3/uL (0.0-1.1) Eosinophils # (Auto) 0.3 x10^3/uL (0.0-0.7) Basophils # (Auto) 0.0 x10^3/uL (0.0-0.2) Sodium Level 138 mmol/L (136-145) Potassium Level 3.7 mmol/L (3.5-5.1) Chloride Level 103 mmol/L (98-107) Carbon Dioxide Level 31 mmol/L (21-32) Anion Gap 4 (6-14) Blood Urea Nitrogen 12 mg/dL (7-20) Creatinine 0.5 mg/dL (0.6-1.0) Estimated GFR (Cockcroft-Gault) 130.1 Glucose Level 118 mg/dL (70-99) Calcium Level 8.3 mg/dL (8.5-10.1) Phosphorus Level 2.6 mg/dL (2.6-4.7) Magnesium Level 1.6 mg/dL (1.8-2.4) Albumin 2.0 g/dL (3.4-5.0) Laboratory Tests Test 06/07/17 23:10 06/08/17 06:20 Urine Collection Type U cath Urine Color [place] Urine Clarity Clear Urine pH 6.0 Urine Specific [place] 1.025 Urine Protein Negative mg/dL (NEG-TRACE) Urine Glucose (UA) Negative mg/dL (NEG) Urine Ketones (Stick) Negative mg/dL (NEG) Urine Blood Negative (NEG) Urine Nitrite Negative (NEG) Urine Bilirubin Small (NEG) Urine Urobilinogen Dipstick 1.0 mg/dL (0.2 mg/dL) Urine Leukocyte Esterase Negative (NEG) Urine RBC 1-2 /HPF (0-2) Urine WBC Occ /HPF (0-4) Urine Squamous Epithelial Cells Occ /LPF Urine Bacteria 0 /HPF (0-FEW) Urine Mucus Mod /LPF White Blood Count 8.4 x10^3/uL (4.0-11.0) Red Blood Count 2.84 x10^6/uL (3.50-5.40) Hemoglobin 7.0 g/dL (12.0-15.5) Hematocrit 21.7 % (36.0-47.0) Mean Corpuscular Volume 77 fL (79-100) Mean Corpuscular Hemoglobin 25 pg (25-35) Mean Corpuscular Hemoglobin Concent 32 g/dL (31-37) Red Cell Distribution Width 16.3 % (11.5-14.5) Platelet Count 153 x10^3/uL (140-400) Neutrophils (%) (Auto) 77 % (31-73) Lymphocytes (%) (Auto) 16 % (24-48) Monocytes (%) (Auto) 4 % (0-9) Eosinophils (%) (Auto) 3 % (0-3) Basophils (%) (Auto) 0 % (0-3) Neutrophils # (Auto) 6.5 x10^3uL (1.8-7.7) Lymphocytes # (Auto) 1.3 x10^3/uL (1.0-4.8) Monocytes # (Auto) 0.3 x10^3/uL (0.0-1.1) Eosinophils # (Auto) 0.3 x10^3/uL (0.0-0.7) Basophils # (Auto) 0.0 x10^3/uL (0.0-0.2) Sodium Level 138 mmol/L (136-145) Potassium Level 3.7 mmol/L (3.5-5.1) Chloride Level 103 mmol/L (98-107) Carbon Dioxide Level 31 mmol/L (21-32) Anion Gap 4 (6-14) Blood Urea Nitrogen 12 mg/dL (7-20) Creatinine 0.5 mg/dL (0.6-1.0) Estimated GFR (Cockcroft-Gault) 130.1 Glucose Level 118 mg/dL (70-99) Calcium Level 8.3 mg/dL (8.5-10.1) Phosphorus Level 2.6 mg/dL (2.6-4.7) Magnesium Level 1.6 mg/dL (1.8-2.4) Albumin 2.0 g/dL (3.4-5.0) Medications Current Medications Ondansetron HCl (Zofran) 4 mg PRN Q6HRS PRN IV NAUSEA/VOMITING Last administered on 06/07/17 03:59; Start 06/06/17 at 07:00; Stop 06/07/17 at 06:59 ; Status DC Fentanyl Citrate (Fentanyl 2ml Vial) 25 mcg PRN Q5MIN PRN IV MILD PAIN; Start 06/06/17 at 07:00; Stop 06/07/17 at 06:59; Status DC Fentanyl Citrate (Fentanyl 2ml Vial) 50 mcg PRN Q5MIN PRN IV MODERATE PAIN Last administered on 06/06/17 16:11; Start 06/06/17 at 07:00; Stop 06/07/17 at 06:59; Status DC Morphine Sulfate 1 mg PRN Q10MIN PRN IV SEVERE PAIN Last administered on 16:51; Start 06/06/17 at 07:00; Stop 06/07/17 at 06:59; Status DC Ringer's Solution 1,000 ml @ 0 mls/hr Q0M IV Last administered on 06/06/17 07 :32; Start 06/06/17 at 07:00; Stop 06/06/17 at 18:59; Status DC Lidocaine HCl (Xylocaine-Mpf 1% Vial) 2 ml PRN 1X PRN ID PRIOR TO IV START; Start 06/06/17 at 07:00; Stop 06/07/17 at 06:59; Status DC Hydromorphone HCl (Dilaudid) 0.5 mg PRN Q10MIN PRN IV SEV PAIN, Second choice; Start 06/06/17 at 07:00; Stop 06/07/17 at 06:59; Status DC Prochlorperazine Edisylate (Compazine) 5 mg PACU PRN PRN IV NAUSEA, MRX1 Last administered on 06/06/17 18:12; Start 06/06/17 at 07:00; Stop 06/07/17 at 06:59 ; Status DC Cefoxitin Sodium 50 ml @ As Directed STK-MED ONCE IV ; Start 06/06/17 at 07:20; Stop 06/06/17 at 07:21; Status DC Rocuronium [place] (Zemuron) 50 mg STK-MED ONCE .ROUTE ; Start 06/06/17 at 07:38 ; Stop 06/06/17 at 07:39; Status DC Midazolam HCl (Versed) 2 mg STK-MED ONCE .ROUTE ; Start 06/06/17 at 07:38; Stop 06/06/17 at 07:39; Status DC Fentanyl Citrate (Fentanyl 5ml Vial) 250 mcg STK-MED ONCE .ROUTE ; Start at 07:38; Stop 06/06/17 at 07:39; Status DC Propofol 20 ml @ As Directed STK-MED ONCE IV ; Start 06/06/17 at 07:38; Stop at 07:39; Status DC Lidocaine HCl (Lidocaine Pf 2% Vial) 5 ml STK-MED ONCE .ROUTE ; Start 06/06/17 at 07:38; Stop 06/06/17 at 07:39; Status DC Levofloxacin/ Dextrose 150 ml @ As Directed STK-MED ONCE IV ; Start 06/06/17 at 08:05; Stop 06/06/17 at 08:06; Status DC Levofloxacin/ Dextrose 150 ml @ 0 mls/hr 1X ONCE IV Last administered on 08:33; Start 06/06/17 at 08:15; Stop 06/06/17 at 08:16; Status DC Sevoflurane (Ultane) 90 ml STK-MED ONCE IH ; Start 06/06/17 at 09:04; Stop 06/06 at 09:05; Status DC Cellulose 1 each STK-MED ONCE .ROUTE ; Start 06/06/17 at 09:06; Stop 06/06/17 at 09:07; Status DC Cellulose 1 each STK-MED ONCE TP Last administered on 06/06/17 09:07; Start 06/06/17 at 09:07; Stop 06/06/17 at 09:10; Status DC Rocuronium [place] (Zemuron) 100 mg STK-MED ONCE .ROUTE ; Start 06/06/17 at 09: 08; Stop 06/06/17 at 09:09; Status DC Fentanyl Citrate (Fentanyl 5ml Vial) 250 mcg STK-MED ONCE .ROUTE ; Start at 12:38; Stop 06/06/17 at 12:39; Status DC Albumin Human 500 ml @ As Directed STK-MED ONCE IV ; Start 06/06/17 at 13:36; Stop 06/06/17 at 13:37; Status DC Neostigmine Methylsulfate (Bloxiverz) 10 mg STK-MED ONCE .ROUTE ; Start at 13:57; Stop 06/06/17 at 13:58; Status DC Glycopyrrolate (Robinul) 1 mg STK-MED ONCE .ROUTE ; Start 06/06/17 at 13:57; Stop 06/06/17 at 13:58; Status DC Enoxaparin Sodium (Lovenox 40mg Syringe) 40 mg Q24H SQ Last administered on 17:52; Start 06/06/17 at 15:00 Sodium Chloride (Normal Saline Flush) 3 ml QSHIFT PRN IV AFTER MEDS AND BLOOD DRAWS; Start 06/06/17 at 14:45 Ringer's Solution 1,000 ml @ 50 mls/hr Q20H IV Last administered on 06/08/17 06:32; Start 06/06/17 at 14:41 Naloxone HCl (Narcan) 0.4 mg PRN Q2MIN PRN IV SEE INSTRUCTIONS; Start 06/06/17 at 14:45; Stop 06/07/17 at 13:45; Status DC Sodium Chloride 1,000 ml @ 25 mls/hr Q24H IV ; Start 06/06/17 at 14:41; Stop 06/07/17 at 13:44; Status DC Morphine Sulfate 30 ml @ 0 mls/hr CONT PRN PRN IV PROTOCOL Last administered on 06/06/17 16:15; Start 06/06/17 at 14:45; Stop 06/08/17 at 09:57; Status DC Levofloxacin/ Dextrose 150 ml @ 100 mls/hr Q24H IV Last administered on 11/9/ 17at 08:46; Start 06/07/17 at 08:00 Midazolam HCl (Versed) 2 mg PRN Q1HR PRN IV SEDATION PT ON VENT; Start at 19:00; Stop 06/07/17 at 13:44; Status DC Propofol 100 ml @ 0 mls/hr CONT PRN IV SEE I/O RECORD Last administered on 06/07 03:17; Start 06/06/17 at 19:00 Chlorhexidine Gluconate (Peridex) 15 ml BID SWSP Last administered on 08:32; Start 06/06/17 at 21:00; Stop 06/07/17 at 13:44; Status DC Naloxone HCl (Narcan) 0.4 mg PRN Q2MIN PRN IV SEE INSTRUCTIONS; Start 06/07/17 at 11:30 Sodium Chloride 1,000 ml @ 25 mls/hr Q24H IV Last administered on 06/08/17 08 :37; Start 06/07/17 at 11:18 Hydromorphone HCl 30 ml @ 0 mls/hr CONT PRN PRN IV PROTOCOL Last administered on 06/08/17 08:44; Start 06/07/17 at 11:30 Alteplase, Recombinant (Cathflo) 2 mg 1X ONCE INT CAT Last administered on 14:09; Start 06/07/17 at 12:30; Stop 06/07/17 at 12:31; Status DC Lorazepam (Ativan) 0.5 mg PRN Q6HRS PRN IV ANXIETY / AGITATION Last administered on 06/08/17 08:36; Start 06/07/17 at 17:45 Prochlorperazine Edisylate (Compazine) 10 mg PRN Q6HRS PRN IV NAUSEA/VOMITING Last administered on 06/07/17 22:51; Start 06/07/17 at 22:45 Active Scripts Active Reported Acetaminophen 500 Mg Tablet 650 Mg PO EVERY 6 HRS PRN Diphenhydramine Hcl 50 Mg Capsule 1 Cap PO EVERY 4 HRS PRN Lorazepam 0.5 Mg Tablet 1 Tab PO EVERY 6 HRS PRN Trazodone Hcl 300 Mg Tablet 400 Mg PO HS Heparin 10 Unit/10 Ml (1/Ml) (Heparin Sodium,Porcine/Pf) 1 Unit/1 Ml Disp.syrin 5,000 Unit SUBCUT/PO EVERY 8 HRS Promethazine Hcl 6.25 Mg/5 Ml Syrup 5 Ml IV TID PRN PRN Levothyroxine Sodium 100 Mcg Tablet 100 Mcg IV HS Escitalopram Oxalate 5 Mg Tablet 20 Mg PO DAILY Pantoprazole Sodium 40 Mg Tablet.dr 1 Tab PO IV Tpn Electrolytes Ii Iv Soln (Sodium/K+/Mag/Ca/Chlor/Acetate) 20 Ml Vial 20 Ml IV FENTANYL 25mcg/hr (Fentanyl) 1 Each Patch.td72 1 Patch TP Q3DAYS Hydromorphone Hcl 4 Mg Tablet 1 Tab IV QIDPRN PRN Hydromorphone Hcl 4 Mg Tablet 2 Mg PO Vitals/I & O Vital Sign - Last 24 Hours 06/07/17 06/07/17 06/07/17 06/07/17 13:00 14:00 15:00 16:00 Temp 98.7 98.7 Pulse 96 96 95 92 Resp 22 18 20 20 B/P (MAP) 130/65 (86) 105/53 (70) 107/58 (74) 97/53 (68) Pulse Ox 95 94 96 94 O2 Delivery Nasal Cannula Nasal Cannula Nasal Cannula Nasal Cannula O2 Flow Rate 2.0 2.0 2.0 2.0 06/07/17 06/07/17 06/07/17 06/07/17 16:00 17:00 17:16 18:00 Pulse 92 94 Resp 22 18 16 B/P (MAP) 102/58 (73) 100/54 (69) Pulse Ox 94 94 O2 Delivery Nasal Cannula Nasal Cannula Nasal Cannula Nasal Cannula O2 Flow Rate 2.0 2.0 2.0 2.0 06/07/17 06/07/17 06/07/17 06/07/17 19:00 20:00 20:00 21:00 Temp 97.9 97.9 Pulse 93 94 90 Resp 16 16 16 B/P (MAP) 104/54 (71) 103/54 (70) 100/54 (69) Pulse Ox 94 94 94 O2 Delivery Nasal Cannula Nasal Cannula Nasal Cannula Nasal Cannula O2 Flow Rate 2.0 2.0 2.0 2.0 06/07/17 06/07/17 06/07/17 06/07/17 22:00 23:00 23:32 23:59 Pulse 80 94 Resp 15 14 16 B/P (MAP) 104/54 (71) 91/54 (66) Pulse Ox 94 94 94 O2 Delivery Nasal Cannula Nasal Cannula Nasal Cannula Nasal Cannula O2 Flow Rate 2.0 2.0 2.0 2.0 06/08/17 06/08/17 06/08/17 06/08/17 00:00 00:02 01:00 02:00 Temp 97.7 97.7 Pulse 90 87 92 Resp 13 16 16 20 B/P (MAP) 108/54 (72) 99/53 (68) 91/61 (71) Pulse Ox 94 94 94 99 O2 Delivery Nasal Cannula Nasal Cannula Nasal Cannula Nasal Cannula O2 Flow Rate 2.0 2.0 2.0 2.0 06/08/17 06/08/17 06/08/17 06/08/17 03:00 04:00 04:00 05:00 Pulse 96 87 90 Resp 20 16 18 B/P (MAP) 113/51 (71) 113/53 (73) 107/55 (72) Pulse Ox 94 94 99 O2 Delivery Nasal Cannula Nasal Cannula Nasal Cannula Nasal Cannula O2 Flow Rate 2.0 2.0 2.0 2.0 06/08/17 06/08/17 06/08/17 06:00 08:00 12:00 Pulse 85 Resp 15 B/P (MAP) 102/54 (70) Pulse Ox 99 O2 Delivery Nasal Cannula Nasal Cannula Nasal Cannula O2 Flow Rate 2.0 2.0 2.0 Nutrition Consultation Dietary Evaluation: Recommendations by RD: PPN/TPN Comments: REC TPN: 250 g dextrose, 60 g AA, 40 g lipid Expected Outcomes/Goals: Initiation of nutrition within 24 - 48 hrs Interpretation of weight loss: >7.5% in 3 months Malnutrition Findings: Food and Nutrition Intake (Mod: <75% est energy req 7days Weight Status: Morbidly Obese AMANDA HARDING III DO Jun 08, 2017 13:01
[2017-06-08] MEDS: TPN PER PHARMACY MC PRN (13:35)
[2017-06-08] MEDS ORDERED: MAGNESIUM SULFATE 2GM 50 ML IV ONE (14:00)
--- NOTE | 2017-06-08 14:41 | PDOC ---
PULMONARY PROGRESS NOTES Subjective PT ANXIOUS NO INCREASE SOA Vitals Vital Signs Date Time Temp Pulse Resp B/P (MAP) Pulse Ox O2 Delivery O2 Flow Rate FiO2 06/08/17 12:00 Nasal Cannula 2.0 06/08/17 06:00 85 15 102/54 (70) 99 06/08/17 00:00 97.7 97.7 Lungs: Crackles Cardiovascular: S1, S2 Abdomen: Soft, Other (OBESE) Neuro Exam: Alert Extremities: No Edema Skin: Warm Labs Laboratory Tests Test 06/06/17 15:38 06/06/17 16:19 06/07/17 08:45 06/07/17 10:00 O2 Saturation 97 % (92-99) 98 % (92-99) Arterial Blood pH 7.29 (7.35-7.45) 7.39 (7.35-7.45) Arterial Blood pCO2 at Patient Temp 40 mmHg (35-46) 41 mmHg (35-46) Arterial Blood pO2 at Patient Temp 119 mmHg (75-108) 141 mmHg (75-108) Arterial Blood HCO3 19 mmol/L (21-28) 24 mmol/L (21-28) Arterial Blood Base Excess -7 mmol/L (-3-3) -1 mmol/L (-3-3) Glucose (Fingerstick) 157 mg/dL (70-99) FiO2 40 White Blood Count 10.2 x10^3/uL (4.0-11.0) Red Blood Count 3.58 x10^6/uL (3.50-5.40) Hemoglobin 8.7 g/dL (12.0-15.5) Hematocrit 27.2 % (36.0-47.0) Mean Corpuscular Volume 76 fL (79-100) Mean Corpuscular Hemoglobin 24 pg (25-35) Mean Corpuscular Hemoglobin Concent 32 g/dL (31-37) Red Cell Distribution Width 16.1 % (11.5-14.5) Platelet Count 166 x10^3/uL (140-400) Neutrophils (%) (Auto) 84 % (31-73) Lymphocytes (%) (Auto) 9 % (24-48) Monocytes (%) (Auto) 6 % (0-9) Eosinophils (%) (Auto) 0 % (0-3) Basophils (%) (Auto) 0 % (0-3) Neutrophils # (Auto) 8.5 x10^3uL (1.8-7.7) Lymphocytes # (Auto) 0.9 x10^3/uL (1.0-4.8) Monocytes # (Auto) 0.6 x10^3/uL (0.0-1.1) Eosinophils # (Auto) 0.0 x10^3/uL (0.0-0.7) Basophils # (Auto) 0.0 x10^3/uL (0.0-0.2) Sodium Level 136 mmol/L (136-145) Potassium Level 3.9 mmol/L (3.5-5.1) Chloride Level 101 mmol/L (98-107) Carbon Dioxide Level 27 mmol/L (21-32) Anion Gap 8 (6-14) Blood Urea Nitrogen 17 mg/dL (7-20) Creatinine 0.8 mg/dL (0.6-1.0) Estimated GFR (Cockcroft-Gault) 75.6 Glucose Level 177 mg/dL (70-99) Calcium Level 7.8 mg/dL (8.5-10.1) Test 06/07/17 23:10 06/08/17 06:20 Urine Collection Type U cath Urine Color [place] Urine Clarity Clear Urine pH 6.0 Urine Specific [place] 1.025 Urine Protein Negative mg/dL (NEG-TRACE) Urine Glucose (UA) Negative mg/dL (NEG) Urine Ketones (Stick) Negative mg/dL (NEG) Urine Blood Negative (NEG) Urine Nitrite Negative (NEG) Urine Bilirubin Small (NEG) Urine Urobilinogen Dipstick 1.0 mg/dL (0.2 mg/dL) Urine Leukocyte Esterase Negative (NEG) Urine RBC 1-2 /HPF (0-2) Urine WBC Occ /HPF (0-4) Urine Squamous Epithelial Cells Occ /LPF Urine Bacteria 0 /HPF (0-FEW) Urine Mucus Mod /LPF White Blood Count 8.4 x10^3/uL (4.0-11.0) Red Blood Count 2.84 x10^6/uL (3.50-5.40) Hemoglobin 7.0 g/dL (12.0-15.5) Hematocrit 21.7 % (36.0-47.0) Mean Corpuscular Volume 77 fL (79-100) Mean Corpuscular Hemoglobin 25 pg (25-35) Mean Corpuscular Hemoglobin Concent 32 g/dL (31-37) Red Cell Distribution Width 16.3 % (11.5-14.5) Platelet Count 153 x10^3/uL (140-400) Neutrophils (%) (Auto) 77 % (31-73) Lymphocytes (%) (Auto) 16 % (24-48) Monocytes (%) (Auto) 4 % (0-9) Eosinophils (%) (Auto) 3 % (0-3) Basophils (%) (Auto) 0 % (0-3) Neutrophils # (Auto) 6.5 x10^3uL (1.8-7.7) Lymphocytes # (Auto) 1.3 x10^3/uL (1.0-4.8) Monocytes # (Auto) 0.3 x10^3/uL (0.0-1.1) Eosinophils # (Auto) 0.3 x10^3/uL (0.0-0.7) Basophils # (Auto) 0.0 x10^3/uL (0.0-0.2) Sodium Level 138 mmol/L (136-145) Potassium Level 3.7 mmol/L (3.5-5.1) Chloride Level 103 mmol/L (98-107) Carbon Dioxide Level 31 mmol/L (21-32) Anion Gap 4 (6-14) Blood Urea Nitrogen 12 mg/dL (7-20) Creatinine 0.5 mg/dL (0.6-1.0) Estimated GFR (Cockcroft-Gault) 130.1 Glucose Level 118 mg/dL (70-99) Calcium Level 8.3 mg/dL (8.5-10.1) Phosphorus Level 2.6 mg/dL (2.6-4.7) Magnesium Level 1.6 mg/dL (1.8-2.4) Albumin 2.0 g/dL (3.4-5.0) Laboratory Tests Test 06/07/17 23:10 06/08/17 06:20 Urine Collection Type U cath Urine Color [place] Urine Clarity Clear Urine pH 6.0 Urine Specific [place] 1.025 Urine Protein Negative mg/dL (NEG-TRACE) Urine Glucose (UA) Negative mg/dL (NEG) Urine Ketones (Stick) Negative mg/dL (NEG) Urine Blood Negative (NEG) Urine Nitrite Negative (NEG) Urine Bilirubin Small (NEG) Urine Urobilinogen Dipstick 1.0 mg/dL (0.2 mg/dL) Urine Leukocyte Esterase Negative (NEG) Urine RBC 1-2 /HPF (0-2) Urine WBC Occ /HPF (0-4) Urine Squamous Epithelial Cells Occ /LPF Urine Bacteria 0 /HPF (0-FEW) Urine Mucus Mod /LPF White Blood Count 8.4 x10^3/uL (4.0-11.0) Red Blood Count 2.84 x10^6/uL (3.50-5.40) Hemoglobin 7.0 g/dL (12.0-15.5) Hematocrit 21.7 % (36.0-47.0) Mean Corpuscular Volume 77 fL (79-100) Mean Corpuscular Hemoglobin 25 pg (25-35) Mean Corpuscular Hemoglobin Concent 32 g/dL (31-37) Red Cell Distribution Width 16.3 % (11.5-14.5) Platelet Count 153 x10^3/uL (140-400) Neutrophils (%) (Auto) 77 % (31-73) Lymphocytes (%) (Auto) 16 % (24-48) Monocytes (%) (Auto) 4 % (0-9) Eosinophils (%) (Auto) 3 % (0-3) Basophils (%) (Auto) 0 % (0-3) Neutrophils # (Auto) 6.5 x10^3uL (1.8-7.7) Lymphocytes # (Auto) 1.3 x10^3/uL (1.0-4.8) Monocytes # (Auto) 0.3 x10^3/uL (0.0-1.1) Eosinophils # (Auto) 0.3 x10^3/uL (0.0-0.7) Basophils # (Auto) 0.0 x10^3/uL (0.0-0.2) Sodium Level 138 mmol/L (136-145) Potassium Level 3.7 mmol/L (3.5-5.1) Chloride Level 103 mmol/L (98-107) Carbon Dioxide Level 31 mmol/L (21-32) Anion Gap 4 (6-14) Blood Urea Nitrogen 12 mg/dL (7-20) Creatinine 0.5 mg/dL (0.6-1.0) Estimated GFR (Cockcroft-Gault) 130.1 Glucose Level 118 mg/dL (70-99) Calcium Level 8.3 mg/dL (8.5-10.1) Phosphorus Level 2.6 mg/dL (2.6-4.7) Magnesium Level 1.6 mg/dL (1.8-2.4) Albumin 2.0 g/dL (3.4-5.0) Medications Active Scripts Medications Dose Route/Sig Max Daily Dose Days Date Category Acetaminophen 500 Mg Tablet 650 Mg PO EVERY 6 HRS PRN 06/06/17 Reported Diphenhydramine Hcl 50 Mg Capsule 1 Cap PO EVERY 4 HRS PRN 06/06/17 Reported Lorazepam 0.5 Mg Tablet 1 Tab PO EVERY 6 HRS PRN 06/06/17 Reported Trazodone Hcl 300 Mg Tablet 400 Mg PO HS 06/06/17 Reported Heparin 10 Unit/10 Ml (1/Ml) (Heparin Sodium,Porcine/Pf) 1 Unit/1 Ml Disp.syrin 5,000 Unit SUBCUT/PO EVERY 8 HRS 06/06/17 Reported Promethazine Hcl 6.25 Mg/5 Ml Syrup 5 Ml IV TID PRN PRN 06/06/17 Reported Levothyroxine Sodium 100 Mcg Tablet 100 Mcg IV HS 06/06/17 Reported Escitalopram Oxalate 5 Mg Tablet 20 Mg PO DAILY 06/06/17 Reported Pantoprazole Sodium 40 Mg Tablet.dr 1 Tab PO IV 06/06/17 Reported Tpn Electrolytes Ii Iv Soln (Sodium/K+/Mag/Ca/Chlor/Acetate) 20 Ml Vial 20 Ml IV 06/06/17 Reported FENTANYL 25mcg/hr (Fentanyl) 1 Each Patch.td72 1 Patch TP Q3DAYS 06/06/17 Reported Hydromorphone Hcl 4 Mg Tablet 1 Tab IV QIDPRN PRN 06/06/17 Reported Hydromorphone Hcl 4 Mg Tablet 2 Mg PO 06/06/17 Reported Impression . ACUTE RESP FAILURE EXPECTED S/P SURGERY EXPENSIVE SURGERY PT MORBID OBESITY HTN H/O DVT Exploratory laparotomy, extensive lysis of adhesions, Excision of enterocutaneous fistula, ileocolic resection, liver laceration repair, ventral incisional hernia repair, debridement of abdominal wall wound Plan . EXTUBATED DOING WELL POST OP CARE FOLLOW GI INPUT DVT GI PROPH JOLLY CARDOSO MD Jun 08, 2017 14:41
[2017-06-08] MEDS: ENOXAPARIN 40 MG/0.4 ML SYRINGE. SQ SCH (14:45)
[2017-06-08] MEDS ORDERED: TOTAL PARENTERAL NUTRITION 1,424.9987 ML, AMINO ACIDS 10 % 60 GM, DEXTROSE 70 % IN WATE... IV SCH ×10 (22:00)
[2017-06-09] VITALS (10 sets, daily range): BP systolic 110–159; BP diastolic 50–77
[2017-06-09] MEDS: PROCHLORPERAZINE 10 MG/2 ML VIAL. IV PRN ×4 (00:17→17:24)
[2017-06-09] MEDS: IV RINGERS,LACTATED 1000ML 1,000 ML IV SCH ×2 (01:36→21:36)
[2017-06-09] MEDS ORDERED: ALTEPLASE 2 MG VIAL INT CAT ONE (08:45)
[2017-06-09] MEDS ORDERED: fentaNYL 25MCG/HR PATCH 1 PATCH PATCH.TD72 TD SCH (10:30)
--- NOTE | 2017-06-09 10:40 | PDOC ---
LOUANN CHNE SULKY DRIVER 06/09/17 1040: SURGICAL PROGRESS NOTE Subjective no flatus pain unchanged + nausea Vital Signs Vital Signs Date Time Temp Pulse Resp B/P (MAP) Pulse Ox O2 Delivery O2 Flow Rate FiO2 06/09/17 09:54 92 Nasal Cannula 2.0 06/09/17 08:00 98.0 93 18 114/73 (87) 98.0 PATIENT HAS A GARCIA: Yes General: Alert, Cooperative, No acute distress Abdomen: Soft, Other (wound mid portion dehis--drain visiable) Labs Laboratory Tests Test 06/07/17 23:10 06/08/17 06:20 Urine Collection Type U cath Urine Color [place] Urine Clarity Clear Urine pH 6.0 Urine Specific [place] 1.025 Urine Protein Negative mg/dL (NEG-TRACE) Urine Glucose (UA) Negative mg/dL (NEG) Urine Ketones (Stick) Negative mg/dL (NEG) Urine Blood Negative (NEG) Urine Nitrite Negative (NEG) Urine Bilirubin Small (NEG) Urine Urobilinogen Dipstick 1.0 mg/dL (0.2 mg/dL) Urine Leukocyte Esterase Negative (NEG) Urine RBC 1-2 /HPF (0-2) Urine WBC Occ /HPF (0-4) Urine Squamous Epithelial Cells Occ /LPF Urine Bacteria 0 /HPF (0-FEW) Urine Mucus Mod /LPF White Blood Count 8.4 x10^3/uL (4.0-11.0) Red Blood Count 2.84 x10^6/uL (3.50-5.40) Hemoglobin 7.0 g/dL (12.0-15.5) Hematocrit 21.7 % (36.0-47.0) Mean Corpuscular Volume 77 fL (79-100) Mean Corpuscular Hemoglobin 25 pg (25-35) Mean Corpuscular Hemoglobin Concent 32 g/dL (31-37) Red Cell Distribution Width 16.3 % (11.5-14.5) Platelet Count 153 x10^3/uL (140-400) Neutrophils (%) (Auto) 77 % (31-73) Lymphocytes (%) (Auto) 16 % (24-48) Monocytes (%) (Auto) 4 % (0-9) Eosinophils (%) (Auto) 3 % (0-3) Basophils (%) (Auto) 0 % (0-3) Neutrophils # (Auto) 6.5 x10^3uL (1.8-7.7) Lymphocytes # (Auto) 1.3 x10^3/uL (1.0-4.8) Monocytes # (Auto) 0.3 x10^3/uL (0.0-1.1) Eosinophils # (Auto) 0.3 x10^3/uL (0.0-0.7) Basophils # (Auto) 0.0 x10^3/uL (0.0-0.2) Sodium Level 138 mmol/L (136-145) Potassium Level 3.7 mmol/L (3.5-5.1) Chloride Level 103 mmol/L (98-107) Carbon Dioxide Level 31 mmol/L (21-32) Anion Gap 4 (6-14) Blood Urea Nitrogen 12 mg/dL (7-20) Creatinine 0.5 mg/dL (0.6-1.0) Estimated GFR (Cockcroft-Gault) 130.1 Glucose Level 118 mg/dL (70-99) Calcium Level 8.3 mg/dL (8.5-10.1) Phosphorus Level 2.6 mg/dL (2.6-4.7) Magnesium Level 1.6 mg/dL (1.8-2.4) Albumin 2.0 g/dL (3.4-5.0) Problem List s/p xlap local wound care, sutures in place continue NG PT/OT Problems: HAKEEM CANNON MD 06/09/17 1044: SURGICAL PROGRESS NOTE Assessment/Plan Pt seen with Ms. Chen Pt with incisional pain, mild nausea wound with some dehiscence but no evidence of fascia disruption cont wound care hopefully get garcia out today, but need to be out of bed, otherwise maintain garcia for lack of mobility Problems: LOUANN CHEN APRN Jun 09, 2017 10:40 HAKEEM CANNON MD Jun 09, 2017 10:44
[2017-06-09] MEDS: FAMOTIDINE 20 MG/2 ML VIAL IVP SCH ×2 (12:18→23:30)
[2017-06-09] MEDS: IV NORMAL SALINE 1000ML BAG 1,000 ML IV SCH (12:22)
[2017-06-09] MEDS: LEVOTHYROXINE SODIUM 50 MCG in IV NORMAL SALINE 50ML 5 ML IVP SCH (12:22)
--- NOTE | 2017-06-09 12:25 | PDOC ---
Subjective: Subjective: "Miserable." "Bothering nurses a lot," doesn't feel like moving. Objective: Objective: Reviewed surg note - some wound dehis. Vital Signs: Vital Signs Date Time Temp Pulse Resp B/P (MAP) Pulse Ox O2 Delivery O2 Flow Rate FiO2 06/09/17 10:20 92 Nasal Cannula 2.0 06/09/17 08:00 98.0 93 18 114/73 (87) 98.0 PE: GEN: uncomfortable LUNGS: nasal cannula HEART: RRR ABD: soft, NG brownish NEURO/PSYCH: A & O 3 A/P: Multiple abd surg w/ complications -h/o diarrhea, weight loss -s/p excision of ECF, SEAN, ileocolonic resection, liver lac repair, VIH repair, debridement of abd wound 06/06/17 -NG w/ TPN, IV H2 presley Anemia, no CBC today -- Continue per surgery. Hemogram. PEREZ MUÑOZ Jun 09, 2017 12:25
[2017-06-09] MEDS: TPN PER PHARMACY MC PRN (12:40)
--- NOTE | 2017-06-09 12:45 | PATHOLOGY ---
PATHOLOGY REPORT * * * * * * * * FINAL DIAGNOSIS: Segment of bowel and skin "abdominal wall enterocutaneous fistula, segmental bowel resection and resection of fistula": - Extensive ulceration with necrotic acute inflammatory exudate extending from mucosa to the overlying skin with fistulous formation surrounding acute and chronic inflammation with fibrosis. - Segment of small and large bowel with adhesions and subserosal fibrosis. - Sections from the tissue submitted as ileocecal valve reveal predominantly ileum with prominent Peyer's patches. - There is no definite evidence of polyps or malignancies. (SHA:mmmee; 06/09/2017) REPORT ELECTRONICALLY SIGNED BY: Elio Henderson M.D. DATE/TIME: 06/09/2017 12:45 * * * * * * * * GROSS PATHOLOGY: Received in formalin labeled "Justino Antonio, abdominal wall enterocutaneous fistula" is a specimen consisting of four portions of tissue. The two smaller portions are schuster-brown nodular possible skin or mucosa which measure 4.3 x 3.5 x 3.5 cm and 7.2 x 2.6 x 2.1 cm. Upon sectioning, these portions have a schuster-white fibrotic cut surface. The larger portion has multiple embedded blue plastic sutures. The larger two portions of tissue consist of segments of pink schuster bowel. The smaller portion of bowel measures 7.0 cm in length and 3.2 cm in diameter and has an attached portion of schuster-brown nodular possible skin and soft tissue measuring 7.6 x 3.6 x 3.6 cm. The mucosal margins are closed with staple lines. The serosa is pink-schuster and ragged, and the bowel is opened to reveal pink schuster mucosa with unremarkable folding. There is a fistula-like connection between the possible skin and the bowel measuring 1.2 x 0.4 cm. This area measures 2.3 cm to the closest mucosal margin. The larger portion of bowel measures 50.3 cm in length and 2.5-3.5 cm in diameter. The mucosal margins are closed with staple lines. The serosa is schuster-pink and ragged, and the bowel is adhesed to itself over a 7.5 x 6.5 cm area. The staple lines are removed and the bowel is opened to reveal a staple line anastomosis approximately residential through the specimen, at the area of adhesion. The tissue surrounding the anastomosis appears well-healed. The mucosa on one side of the anastomosis is pink-schuster with unremarkable folding, possibly consistent with small bowel. The opposite side of the anastomosis is pink-schuster and slightly edematous and flattened folding, is possibly consistent with colonic mucosa, and has a 5.5 x 3.0 cm red-brown hemorrhagic area. There is a possible ileocecal valve present within the colon area, which is sectioned to reveal an underlying staple line. No masses, polyps, or perforations are identified. [employer] sections of the specimen are submitted as follows: A1 dealer compliance representative sections of two portions of skin or mucosa A2 dealer compliance representative section of smaller portion of bowel showing fistula-like connection A3-A4 dealer compliance representative sections of larger portion of bowel, possible small bowel in A3, possible colon with hemorrhagic mucosa in A4 A5 dealer compliance representative possible ileocecal valve from larger portion of bowel A6 dealer compliance representative sections adjacent to area of adhesion [place] [place]08/2017[place] INITIAL CPT CODE(S): A; 32060 Professional services performed [place] [email or web address] [place] [address] Technical services performed by [email or web address] at [address] [place] [address] [address] [address]. SPECIMEN(S) RECEIVED: A.Abdominal wall enterocutaneous fistula CLINICAL HISTORY: Enterocutaneous fistula PATIENT: JUSTINO ANTONIO Shobha /AGE: 1005/30/1965 (Age: 52) PATIENT #: [id number] ALT CASE #: SPECIMEN COLLECTION DATE: 06/06/2017 SPECIMEN RECEIVED DATE: 06/06/2017 [facility] - [address] [place] [address] - PHONE: [phone] * * * END OF REPORT * * *
--- NOTE | 2017-06-09 12:57 | PDOC ---
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 Extubated 11/ HYpomagnesemia Hypothryoidism Acute post op pain on ACTUARIAL TECHNICIAN day 3 HTN, controlled HLD DM controlled Peripheral neuropathy Anxiety/depression NOS DVT hx Endometrial cancer Cholecystectomy Hiatal hernia repair with esophageal injury and peritonitis Umbilical hernia repair Bowel obstruction with mesh/complications of fistula Hysterectomy History of Present Illness History of Present Illness Transferred out of ICU Still needs the ACTUARIAL TECHNICIAN pump VS ok Slightly drowsy Came from [place] On home meds was on fentanyl patch and synthroid PLAN: Make PO synthroid, IV since NPO UNable dc ACTUARIAL TECHNICIAN pump yet MAintain NPO and cont TPN Labs in WOuld hold off restarting fentanyl patch since on ACTUARIAL TECHNICIAN and drowsy some PT/OT Replace mag 1.6 only, 2 gms iV x 1 now Vitals Vitals Vital Signs Date Time Temp Pulse Resp B/P (MAP) Pulse Ox O2 Delivery O2 Flow Rate FiO2 06/09/17 10:20 92 Nasal Cannula 2.0 06/09/17 08:00 98.0 93 18 114/73 (87) 98.0 Physical Exam General: Alert, Cooperative, No acute distress Heart: Regular rate, Normal S1, Normal S2 Lungs: Crackles Abdomen: Soft, Other (wound mid portion dehis--drain visiable) Extremities: No clubbing, No cyanosis Skin: No rashes, No breakdown Review of Systems Review of Systems drowsy, weak, some nausea, no emesis Comment Review of Relevant I have reviewed the following items radha (where applicable) has been applied. Labs Laboratory Tests Test 06/07/17 23:10 06/08/17 06:20 Urine Collection Type U cath Urine Color [place] Urine Clarity Clear Urine pH 6.0 Urine Specific [place] 1.025 Urine Protein Negative mg/dL (NEG-TRACE) Urine Glucose (UA) Negative mg/dL (NEG) Urine Ketones (Stick) Negative mg/dL (NEG) Urine Blood Negative (NEG) Urine Nitrite Negative (NEG) Urine Bilirubin Small (NEG) Urine Urobilinogen Dipstick 1.0 mg/dL (0.2 mg/dL) Urine Leukocyte Esterase Negative (NEG) Urine RBC 1-2 /HPF (0-2) Urine WBC Occ /HPF (0-4) Urine Squamous Epithelial Cells Occ /LPF Urine Bacteria 0 /HPF (0-FEW) Urine Mucus Mod /LPF White Blood Count 8.4 x10^3/uL (4.0-11.0) Red Blood Count 2.84 x10^6/uL (3.50-5.40) Hemoglobin 7.0 g/dL (12.0-15.5) Hematocrit 21.7 % (36.0-47.0) Mean Corpuscular Volume 77 fL (79-100) Mean Corpuscular Hemoglobin 25 pg (25-35) Mean Corpuscular Hemoglobin Concent 32 g/dL (31-37) Red Cell Distribution Width 16.3 % (11.5-14.5) Platelet Count 153 x10^3/uL (140-400) Neutrophils (%) (Auto) 77 % (31-73) Lymphocytes (%) (Auto) 16 % (24-48) Monocytes (%) (Auto) 4 % (0-9) Eosinophils (%) (Auto) 3 % (0-3) Basophils (%) (Auto) 0 % (0-3) Neutrophils # (Auto) 6.5 x10^3uL (1.8-7.7) Lymphocytes # (Auto) 1.3 x10^3/uL (1.0-4.8) Monocytes # (Auto) 0.3 x10^3/uL (0.0-1.1) Eosinophils # (Auto) 0.3 x10^3/uL (0.0-0.7) Basophils # (Auto) 0.0 x10^3/uL (0.0-0.2) Sodium Level 138 mmol/L (136-145) Potassium Level 3.7 mmol/L (3.5-5.1) Chloride Level 103 mmol/L (98-107) Carbon Dioxide Level 31 mmol/L (21-32) Anion Gap 4 (6-14) Blood Urea Nitrogen 12 mg/dL (7-20) Creatinine 0.5 mg/dL (0.6-1.0) Estimated GFR (Cockcroft-Gault) 130.1 Glucose Level 118 mg/dL (70-99) Calcium Level 8.3 mg/dL (8.5-10.1) Phosphorus Level 2.6 mg/dL (2.6-4.7) Magnesium Level 1.6 mg/dL (1.8-2.4) Albumin 2.0 g/dL (3.4-5.0) Medications Current Medications Ondansetron HCl (Zofran) 4 mg PRN Q6HRS PRN IV NAUSEA/VOMITING Last administered on 06/07/17 03:59; Start 06/06/17 at 07:00; Stop 06/07/17 at 06:59 ; Status DC Fentanyl Citrate (Fentanyl 2ml Vial) 25 mcg PRN Q5MIN PRN IV MILD PAIN; Start 06/06/17 at 07:00; Stop 06/07/17 at 06:59; Status DC Fentanyl Citrate (Fentanyl 2ml Vial) 50 mcg PRN Q5MIN PRN IV MODERATE PAIN Last administered on 06/06/17 16:11; Start 06/06/17 at 07:00; Stop 06/07/17 at 06:59; Status DC Morphine Sulfate 1 mg PRN Q10MIN PRN IV SEVERE PAIN Last administered on 16:51; Start 06/06/17 at 07:00; Stop 06/07/17 at 06:59; Status DC Ringer's Solution 1,000 ml @ 0 mls/hr Q0M IV Last administered on 06/06/17 07 :32; Start 06/06/17 at 07:00; Stop 06/06/17 at 18:59; Status DC Lidocaine HCl (Xylocaine-Mpf 1% Vial) 2 ml PRN 1X PRN ID PRIOR TO IV START; Start 06/06/17 at 07:00; Stop 06/07/17 at 06:59; Status DC Hydromorphone HCl (Dilaudid) 0.5 mg PRN Q10MIN PRN IV SEV PAIN, Second choice; Start 06/06/17 at 07:00; Stop 06/07/17 at 06:59; Status DC Prochlorperazine Edisylate (Compazine) 5 mg PACU PRN PRN IV NAUSEA, MRX1 Last administered on 06/06/17 18:12; Start 06/06/17 at 07:00; Stop 06/07/17 at 06:59 ; Status DC Cefoxitin Sodium 50 ml @ As Directed STK-MED ONCE IV ; Start 06/06/17 at 07:20; Stop 06/06/17 at 07:21; Status DC Rocuronium [place] (Zemuron) 50 mg STK-MED ONCE .ROUTE ; Start 06/06/17 at 07:38 ; Stop 06/06/17 at 07:39; Status DC Midazolam HCl (Versed) 2 mg STK-MED ONCE .ROUTE ; Start 06/06/17 at 07:38; Stop 06/06/17 at 07:39; Status DC Fentanyl Citrate (Fentanyl 5ml Vial) 250 mcg STK-MED ONCE .ROUTE ; Start at 07:38; Stop 06/06/17 at 07:39; Status DC Propofol 20 ml @ As Directed STK-MED ONCE IV ; Start 06/06/17 at 07:38; Stop at 07:39; Status DC Lidocaine HCl (Lidocaine Pf 2% Vial) 5 ml STK-MED ONCE .ROUTE ; Start 06/06/17 at 07:38; Stop 06/06/17 at 07:39; Status DC Levofloxacin/ Dextrose 150 ml @ As Directed STK-MED ONCE IV ; Start 06/06/17 at 08:05; Stop 06/06/17 at 08:06; Status DC Levofloxacin/ Dextrose 150 ml @ 0 mls/hr 1X ONCE IV Last administered on t 08:33; Start 06/06/17 at 08:15; Stop 06/06/17 at 08:16; Status DC Sevoflurane (Ultane) 90 ml STK-MED ONCE IH ; Start 06/06/17 at 09:04; Stop 06/06 at 09:05; Status DC Cellulose 1 each STK-MED ONCE .ROUTE ; Start 06/06/17 at 09:06; Stop 06/06/17 at 09:07; Status DC Cellulose 1 each STK-MED ONCE TP Last administered on 06/06/17t 09:07; Start 06/06/17 at 09:07; Stop 06/06/17 at 09:10; Status DC Rocuronium [place] (Zemuron) 100 mg STK-MED ONCE .ROUTE ; Start 06/06/17 at 09: 08; Stop 06/06/17 at 09:09; Status DC Fentanyl Citrate (Fentanyl 5ml Vial) 250 mcg STK-MED ONCE .ROUTE ; Start at 12:38; Stop 06/06/17 at 12:39; Status DC Albumin Human 500 ml @ As Directed STK-MED ONCE IV ; Start 06/06/17 at 13:36; Stop 06/06/17 at 13:37; Status DC Neostigmine Methylsulfate (Bloxiverz) 10 mg STK-MED ONCE .ROUTE ; Start at 13:57; Stop 06/06/17 at 13:58; Status DC Glycopyrrolate (Robinul) 1 mg STK-MED ONCE .ROUTE ; Start 06/06/17 at 13:57; Stop 06/06/17 at 13:58; Status DC Enoxaparin Sodium (Lovenox 40mg Syringe) 40 mg Q24H SQ Last administered on 14:45; Start 06/06/17 at 15:00 Sodium Chloride (Normal Saline Flush) 3 ml QSHIFT PRN IV AFTER MEDS AND BLOOD DRAWS; Start 06/06/17 at 14:45 Ringer's Solution 1,000 ml @ 50 mls/hr Q20H IV Last administered on 06/08/17 06:32; Start 06/06/17 at 14:41 Naloxone HCl (Narcan) 0.4 mg PRN Q2MIN PRN IV SEE INSTRUCTIONS; Start 06/06/17 at 14:45; Stop 06/07/17 at 13:45; Status DC Sodium Chloride 1,000 ml @ 25 mls/hr Q24H IV ; Start 06/06/17 at 14:41; Stop 06/07/17 at 13:44; Status DC Morphine Sulfate 30 ml @ 0 mls/hr CONT PRN PRN IV PROTOCOL Last administered on 06/06/17 16:15; Start 06/06/17 at 14:45; Stop 06/08/17 at 09:57; Status DC Levofloxacin/ Dextrose 150 ml @ 100 mls/hr Q24H IV Last administered on 09:59; Start 06/07/17 at 08:00 Midazolam HCl (Versed) 2 mg PRN Q1HR PRN IV SEDATION PT ON VENT; Start at 19:00; Stop 06/07/17 at 13:44; Status DC Propofol 100 ml @ 0 mls/hr CONT PRN IV SEE I/O RECORD Last administered on 06/07 03:17; Start 06/06/17 at 19:00; Stop 06/09/17 at 09:50; Status DC Chlorhexidine Gluconate (Peridex) 15 ml BID SWSP Last administered on 08:32; Start 06/06/17 at 21:00; Stop 06/07/17 at 13:44; Status DC Naloxone HCl (Narcan) 0.4 mg PRN Q2MIN PRN IV SEE INSTRUCTIONS; Start 06/07/17 at 11:30 Sodium Chloride 1,000 ml @ 25 mls/hr Q24H IV Last administered on 06/09/17 12:22; Start 06/07/17 at 11:18 Hydromorphone HCl 30 ml @ 0 mls/hr CONT PRN PRN IV PROTOCOL Last administered on 06/09/17 09:54; Start 06/07/17 at 11:30 Alteplase, Recombinant (Cathflo) 2 mg 1X ONCE INT CAT Last administered on 14:09; Start 06/07/17 at 12:30; Stop 06/07/17 at 12:31; Status DC Lorazepam (Ativan) 0.5 mg PRN Q6HRS PRN IV ANXIETY / AGITATION Last administered on 06/09/17 08:35; Start 06/07/17 at 17:45 Prochlorperazine Edisylate (Compazine) 10 mg PRN Q6HRS PRN IV NAUSEA/VOMITING Last administered on 06/09/17 12:17; Start 06/07/17 at 22:45 Info 1 each PRN DAILY PRN MC SEE COMMENTS Last administered on 06/08/17 13:35 ; Start 06/08/17 at 13:30 Sodium Chloride 90 meq/Potassium Chloride 50 meq/ Potassium Phosphate 13.6 mmol/ Magnesium Sulfate 10 meq/ Calcium Gluconate 10 meq/ Multivitamins 10 ml/Chromium / Copper/Manganese/ Seleni/Zn 1 ml/ Total Parenteral Nutrition/Amino Acids/ Dextrose/ Fat Emulsion Intravenous 1,512 ml @ 63 mls/hr TPN CONT IV Last administered on 06/08/17 22:56; Start 06/08/17 at 22:00; Stop 06/09/17 at 21: 59 Magnesium Sulfate/ Dextrose 50 ml @ 25 mls/hr 1X ONCE IV Last administered on 06/08/17 14:45; Start 06/08/17 at 14:00; Stop 06/08/17 at 15:59; Status DC Alteplase, Recombinant (Cathflo) 2 mg 1X ONCE INT CAT Last administered on 10:00; Start 06/09/17 at 08:45; Stop 06/09/17 at 08:46; Status DC Famotidine (Pepcid) 20 mg BID IVP Last administered on 06/09/17 12:18; Start 06/09/17 at 10:30 Fentanyl (Duragesic 25mcg/ Hr Patch) 1 patch Q3DAYS TD ; Start 06/09/17 at 10: 30 Levothyroxine Sodium 50 mcg/ Sodium Chloride 5 ml @ 100 mls/hr DAILY IVP Last administered on 06/09/17 12:22; Start 06/09/17 at 10:30 Diphenhydramine HCl (Benadryl) 25 mg PRN QHS PRN IVP sleep; Start 06/09/17 at 10:00 Active Scripts Active Reported Acetaminophen 500 Mg Tablet 650 Mg PO EVERY 6 HRS PRN Diphenhydramine Hcl 50 Mg Capsule 1 Cap PO EVERY 4 HRS PRN Lorazepam 0.5 Mg Tablet 1 Tab PO EVERY 6 HRS PRN Trazodone Hcl 300 Mg Tablet 400 Mg PO HS Heparin 10 Unit/10 Ml (1/Ml) (Heparin Sodium,Porcine/Pf) 1 Unit/1 Ml Disp.syrin 5,000 Unit SUBCUT/PO EVERY 8 HRS Promethazine Hcl 6.25 Mg/5 Ml Syrup 5 Ml IV TID PRN PRN Levothyroxine Sodium 100 Mcg Tablet 100 Mcg IV HS Escitalopram Oxalate 5 Mg Tablet 20 Mg PO DAILY Pantoprazole Sodium 40 Mg Tablet.dr 1 Tab PO IV Tpn Electrolytes Ii Iv Soln (Sodium/K+/Mag/Ca/Chlor/Acetate) 20 Ml Vial 20 Ml IV FENTANYL 25mcg/hr (Fentanyl) 1 Each Patch.td72 1 Patch TP Q3DAYS Hydromorphone Hcl 4 Mg Tablet 1 Tab IV QIDPRN PRN Hydromorphone Hcl 4 Mg Tablet 2 Mg PO Vitals/I & O Vital Sign - Last 24 Hours 06/08/17 06/08/17 06/08/17 06/08/17 15:51 18:20 19:00 19:34 Temp 97.9 97.5 97.9 97.5 Pulse 81 97 88 Resp 18 18 18 B/P (MAP) 95/53 (67) 102/45 (64) 105/40 (61) Pulse Ox 98 95 95 O2 Delivery Nasal Cannula Nasal Cannula Nasal Cannula Nasal Cannula O2 Flow Rate 2.0 2.0 2.0 2.0 06/08/17 06/08/17 06/09/17 06/09/17 20:00 20:27 00:00 04:00 Temp 97.5 98.1 97.5 98.1 Pulse 87 88 Resp 16 18 18 B/P (MAP) 122/62 (82) 137/70 (92) Pulse Ox 97 96 O2 Delivery Nasal Cannula Nasal Cannula Nasal Cannula O2 Flow Rate 2.0 2.0 2.0 06/09/17 06/09/17 06/09/17 08:00 09:54 10:20 Temp 98.0 98.0 Pulse 93 Resp 18 B/P (MAP) 114/73 (87) Pulse Ox 92 92 92 O2 Delivery Nasal Cannula Nasal Cannula Nasal Cannula O2 Flow Rate 2.0 2.0 2.0 Nutrition Consultation Dietary Evaluation: Recommendations by RD: PPN/TPN Comments: continue TPN: 250 g dextrose, 60 g AA, 40 g lipid Expected Outcomes/Goals: Initiation of nutrition within 24 - 48 hrs - met continue to meet > 65% nutrition needs via TPN Interpretation of weight loss: >7.5% in 3 months Malnutrition Findings: Food and Nutrition Intake (Mod: <75% est energy req 7days Weight Status: Morbidly Obese CARMEN AMRS MD Jun 09, 2017 12:57
--- NOTE | 2017-06-09 14:50 | PDOC ---
PULMONARY PROGRESS NOTES Subjective PT ANXIOUS NO INCREASE SOA Vitals Vital Signs Date Time Temp Pulse Resp B/P (MAP) Pulse Ox O2 Delivery O2 Flow Rate FiO2 06/09/17 10:20 92 Nasal Cannula 2.0 06/09/17 08:00 98.0 93 18 114/73 (87) 98.0 Lungs: Crackles Cardiovascular: S1, S2 Abdomen: Soft, Other (OBESE) Neuro Exam: Alert Extremities: No Edema Skin: Warm Labs Laboratory Tests Test 06/07/17 23:10 06/08/17 06:20 Urine Collection Type U cath Urine Color [place] Urine Clarity Clear Urine pH 6.0 Urine Specific [place] 1.025 Urine Protein Negative mg/dL (NEG-TRACE) Urine Glucose (UA) Negative mg/dL (NEG) Urine Ketones (Stick) Negative mg/dL (NEG) Urine Blood Negative (NEG) Urine Nitrite Negative (NEG) Urine Bilirubin Small (NEG) Urine Urobilinogen Dipstick 1.0 mg/dL (0.2 mg/dL) Urine Leukocyte Esterase Negative (NEG) Urine RBC 1-2 /HPF (0-2) Urine WBC Occ /HPF (0-4) Urine Squamous Epithelial Cells Occ /LPF Urine Bacteria 0 /HPF (0-FEW) Urine Mucus Mod /LPF White Blood Count 8.4 x10^3/uL (4.0-11.0) Red Blood Count 2.84 x10^6/uL (3.50-5.40) Hemoglobin 7.0 g/dL (12.0-15.5) Hematocrit 21.7 % (36.0-47.0) Mean Corpuscular Volume 77 fL (79-100) Mean Corpuscular Hemoglobin 25 pg (25-35) Mean Corpuscular Hemoglobin Concent 32 g/dL (31-37) Red Cell Distribution Width 16.3 % (11.5-14.5) Platelet Count 153 x10^3/uL (140-400) Neutrophils (%) (Auto) 77 % (31-73) Lymphocytes (%) (Auto) 16 % (24-48) Monocytes (%) (Auto) 4 % (0-9) Eosinophils (%) (Auto) 3 % (0-3) Basophils (%) (Auto) 0 % (0-3) Neutrophils # (Auto) 6.5 x10^3uL (1.8-7.7) Lymphocytes # (Auto) 1.3 x10^3/uL (1.0-4.8) Monocytes # (Auto) 0.3 x10^3/uL (0.0-1.1) Eosinophils # (Auto) 0.3 x10^3/uL (0.0-0.7) Basophils # (Auto) 0.0 x10^3/uL (0.0-0.2) Sodium Level 138 mmol/L (136-145) Potassium Level 3.7 mmol/L (3.5-5.1) Chloride Level 103 mmol/L (98-107) Carbon Dioxide Level 31 mmol/L (21-32) Anion Gap 4 (6-14) Blood Urea Nitrogen 12 mg/dL (7-20) Creatinine 0.5 mg/dL (0.6-1.0) Estimated GFR (Cockcroft-Gault) 130.1 Glucose Level 118 mg/dL (70-99) Calcium Level 8.3 mg/dL (8.5-10.1) Phosphorus Level 2.6 mg/dL (2.6-4.7) Magnesium Level 1.6 mg/dL (1.8-2.4) Albumin 2.0 g/dL (3.4-5.0) Medications Active Scripts Medications Dose Route/Sig Max Daily Dose Days Date Category Acetaminophen 500 Mg Tablet 650 Mg PO EVERY 6 HRS PRN 06/06/17 Reported Diphenhydramine Hcl 50 Mg Capsule 1 Cap PO EVERY 4 HRS PRN 06/06/17 Reported Lorazepam 0.5 Mg Tablet 1 Tab PO EVERY 6 HRS PRN 06/06/17 Reported Trazodone Hcl 300 Mg Tablet 400 Mg PO HS 06/06/17 Reported Heparin 10 Unit/10 Ml (1/Ml) (Heparin Sodium,Porcine/Pf) 1 Unit/1 Ml Disp.syrin 5,000 Unit SUBCUT/PO EVERY 8 HRS 06/06/17 Reported Promethazine Hcl 6.25 Mg/5 Ml Syrup 5 Ml IV TID PRN PRN 06/06/17 Reported Levothyroxine Sodium 100 Mcg Tablet 100 Mcg IV HS 06/06/17 Reported Escitalopram Oxalate 5 Mg Tablet 20 Mg PO DAILY 06/06/17 Reported Pantoprazole Sodium 40 Mg Tablet.dr 1 Tab PO IV 06/06/17 Reported Tpn Electrolytes Ii Iv Soln (Sodium/K+/Mag/Ca/Chlor/Acetate) 20 Ml Vial 20 Ml IV 06/06/17 Reported FENTANYL 25mcg/hr (Fentanyl) 1 Each Patch.td72 1 Patch TP Q3DAYS 06/06/17 Reported Hydromorphone Hcl 4 Mg Tablet 1 Tab IV QIDPRN PRN 06/06/17 Reported Hydromorphone Hcl 4 Mg Tablet 2 Mg PO 06/06/17 Reported Impression . ACUTE RESP FAILURE EXPECTED S/P SURGERY EXPENSIVE SURGERY PT MORBID OBESITY HTN H/O DVT Exploratory laparotomy, extensive lysis of adhesions, Excision of enterocutaneous fistula, ileocolic resection, liver laceration repair, ventral incisional hernia repair, debridement of abdominal wall wound Plan . EXTUBATED DOING WELL POST OP CARE FOLLOW GI INPUT DVT GI PROPH JOLLY CARDOSO MD Jun 09, 2017 14:50
[2017-06-09] MEDS: ENOXAPARIN 40 MG/0.4 ML SYRINGE. SQ SCH (17:25)
[2017-06-09 17:34] LABS: BASO % 1 % (0-3); EOS % 5 % (0-3); LYMPH # 1.1 x10^3/uL (1.0-4.8); LYMPH % 20 % (24-48); MEAN CORPUSCULAR HEMOGLOBIN 25 pg (25-35); MEAN CORPUSCULAR HGB CONC 32 g/dL (31-37); MEAN CORPUSCULAR VOLUME 77 fL (79-100); MONO % 3 % (0-9); NEUT % 72 % (31-73); PLATELET COUNT 169 x10^3/uL (140-400); RED BLOOD COUNT 2.69 x10^6/uL (3.50-5.40); WHITE BLOOD COUNT 5.4 x10^3/uL (4.0-11.0)
[2017-06-09 17:44] LABS: HEMATOCRIT 20.6 % (36.0-47.0); HEMOGLOBIN 6.6 g/dL (12.0-15.5)
[2017-06-09 17:53] LABS: ALBUMIN/GLOBULIN RATIO 0.5 (1.0-1.7); ALK PHOS 66 U/L (46-116); ANION GAP 3 (6-14); AST (SGOT) 10 U/L (15-37); BLOOD UREA NITROGEN 10 mg/dL (7-20); BUN/CREATININE RATIO 20 (6-20); CALCIUM 8.2 mg/dL (8.5-10.1); CARBON DIOXIDE 34 mmol/L (21-32); CHLORIDE 103 mmol/L (98-107); CREATININE 0.5 mg/dL (0.6-1.0); GFR 130.1; GLUCOSE 136 mg/dL (70-99); MAGNESIUM 1.6 mg/dL (1.8-2.4); PHOSPHORUS 2.9 mg/dL (2.6-4.7); POTASSIUM 3.4 mmol/L (3.5-5.1); SODIUM 140 mmol/L (136-145); TOTAL BILIRUBIN 0.5 mg/dL (0.2-1.0); TOTAL PROTEIN 6.3 g/dL (6.4-8.2)
[2017-06-09 17:55] LABS: ALT (SGPT) < 6 U/L (14-59)
[2017-06-09] MEDS ORDERED: TOTAL PARENTERAL NUTRITION IV SCH ×10 (22:00)
[2017-06-09] MEDS ORDERED: [UNRECOGNIZED DRUG - OTHER] IV SCH ×10 (22:00)
[2017-06-09] MEDS ORDERED: DEXTROSE 70% IV SCH ×10 (22:00)
[2017-06-09] MEDS ORDERED: AMINO ACIDS IV SCH ×10 (22:00)
[2017-06-09] MEDS ORDERED: HYDROmorphone 2 MG/ML VIAL IV PRN (22:45)
[2017-06-10] VITALS (13 sets, daily range): BP systolic 113–165; BP diastolic 63–87
[2017-06-10] MEDS ORDERED: NALOXONE 0.4 MG/ML VIAL. IV PRN (02:00)
[2017-06-10] MEDS: IV NORMAL SALINE 1000ML BAG 1,000 ML IV SCH (02:28)
[2017-06-10] MEDS ORDERED: KETOROLAC 15 MG/ML VIAL. IV ONE (02:30)
[2017-06-10 06:05] LABS: BASO % 1 % (0-3); EOS % 5 % (0-3); HEMATOCRIT 22.3 % (36.0-47.0); HEMOGLOBIN 7.2 g/dL (12.0-15.5); LYMPH # 1.1 x10^3/uL (1.0-4.8); LYMPH % 19 % (24-48); MEAN CORPUSCULAR HEMOGLOBIN 25 pg (25-35); MEAN CORPUSCULAR HGB CONC 33 g/dL (31-37); MEAN CORPUSCULAR VOLUME 77 fL (79-100); MONO % 5 % (0-9); NEUT % 71 % (31-73); PLATELET COUNT 188 x10^3/uL (140-400); RED BLOOD COUNT 2.88 x10^6/uL (3.50-5.40); RED CELL DISTRIBUTION WIDTH 16.8 % (11.5-14.5); WHITE BLOOD COUNT 5.8 x10^3/uL (4.0-11.0)
[2017-06-10 06:27] LABS: CALCIUM 8.3 mg/dL (8.5-10.1); CREATININE 0.5 mg/dL (0.6-1.0); GFR 130.1; POTASSIUM 3.3 mmol/L (3.5-5.1)
[2017-06-10 06:30] LABS: MAGNESIUM 1.7 mg/dL (1.8-2.4); PHOSPHORUS 3.1 mg/dL (2.6-4.7)
[2017-06-10] MEDS: FAMOTIDINE 20 MG/2 ML VIAL IVP SCH ×2 (09:10→22:03)
[2017-06-10] MEDS: LEVOTHYROXINE SODIUM 50 MCG in IV NORMAL SALINE 50ML 5 ML IVP SCH (09:10)
[2017-06-10] MEDS: IV RINGERS,LACTATED 1000ML 1,000 ML IV SCH (09:20)
--- NOTE | 2017-06-10 10:53 | PDOC ---
SURGICAL PROGRESS NOTE Subjective good pain control this AM wants nichols out and bedside commode Vital Signs Vital Signs Date Time Temp Pulse Resp B/P (MAP) Pulse Ox O2 Delivery O2 Flow Rate FiO2 06/10/17 07:30 Nasal Cannula 2.0 06/10/17 07:00 97.9 99 16 161/68 (99) 96 97.9 PATIENT HAS A NICHOLS: Yes General: Alert, Oriented X3, Cooperative, No acute distress Abdomen: Soft, Other (superficial wound dehiscence with Zbigniew exposed) Labs Laboratory Tests Test 06/09/17 17:20 06/09/17 21:40 06/10/17 05:25 06/10/17 07:54 White Blood Count 5.4 x10^3/uL (4.0-11.0) 5.8 x10^3/uL (4.0-11.0) Red Blood Count 2.69 x10^6/uL (3.50-5.40) 2.88 x10^6/uL (3.50-5.40) Hemoglobin 6.6 g/dL (12.0-15.5) 7.2 g/dL (12.0-15.5) Hematocrit 20.6 % (36.0-47.0) 22.3 % (36.0-47.0) Mean Corpuscular Volume 77 fL (79-100) 77 fL (79-100) Mean Corpuscular Hemoglobin 25 pg (25-35) 25 pg (25-35) Mean Corpuscular Hemoglobin Concent 32 g/dL (31-37) 33 g/dL (31-37) Red Cell Distribution Width 16.0 % (11.5-14.5) 16.8 % (11.5-14.5) Platelet Count 169 x10^3/uL (140-400) 188 x10^3/uL (140-400) Neutrophils (%) (Auto) 72 % (31-73) 71 % (31-73) Lymphocytes (%) (Auto) 20 % (24-48) 19 % (24-48) Monocytes (%) (Auto) 3 % (0-9) 5 % (0-9) Eosinophils (%) (Auto) 5 % (0-3) 5 % (0-3) Basophils (%) (Auto) 1 % (0-3) 1 % (0-3) Neutrophils # (Auto) 3.8 x10^3uL (1.8-7.7) 4.1 x10^3uL (1.8-7.7) Lymphocytes # (Auto) 1.1 x10^3/uL (1.0-4.8) 1.1 x10^3/uL (1.0-4.8) Monocytes # (Auto) 0.2 x10^3/uL (0.0-1.1) 0.3 x10^3/uL (0.0-1.1) Eosinophils # (Auto) 0.2 x10^3/uL (0.0-0.7) 0.3 x10^3/uL (0.0-0.7) Basophils # (Auto) 0.0 x10^3/uL (0.0-0.2) 0.0 x10^3/uL (0.0-0.2) Sodium Level 140 mmol/L (136-145) 139 mmol/L (136-145) Potassium Level 3.4 mmol/L (3.5-5.1) 3.3 mmol/L (3.5-5.1) Chloride Level 103 mmol/L (98-107) 103 mmol/L (98-107) Carbon Dioxide Level 34 mmol/L (21-32) 32 mmol/L (21-32) Anion Gap 3 (6-14) 4 (6-14) Blood Urea Nitrogen 10 mg/dL (7-20) 8 mg/dL (7-20) Creatinine 0.5 mg/dL (0.6-1.0) 0.5 mg/dL (0.6-1.0) Estimated GFR (Cockcroft-Gault) 130.1 130.1 BUN/Creatinine Ratio 20 (6-20) Glucose Level 136 mg/dL (70-99) 156 mg/dL (70-99) Calcium Level 8.2 mg/dL (8.5-10.1) 8.3 mg/dL (8.5-10.1) Phosphorus Level 2.9 mg/dL (2.6-4.7) 3.1 mg/dL (2.6-4.7) Magnesium Level 1.6 mg/dL (1.8-2.4) 1.7 mg/dL (1.8-2.4) Total Bilirubin 0.5 mg/dL (0.2-1.0) Aspartate Amino Transf (AST/SGOT) 10 U/L (15-37) Alanine Aminotransferase (ALT/SGPT) < 6 U/L (14-59) Alkaline Phosphatase 66 U/L (46-116) Total Protein 6.3 g/dL (6.4-8.2) Albumin 2.0 g/dL (3.4-5.0) Albumin/Globulin Ratio 0.5 (1.0-1.7) Glucose (Fingerstick) 125 mg/dL (70-99) 134 mg/dL (70-99) Triglycerides Level 148 mg/dL (0-150) Laboratory Tests Test 06/09/17 17:20 06/09/17 21:40 06/10/17 05:25 06/10/17 07:54 White Blood Count 5.4 x10^3/uL (4.0-11.0) 5.8 x10^3/uL (4.0-11.0) Red Blood Count 2.69 x10^6/uL (3.50-5.40) 2.88 x10^6/uL (3.50-5.40) Hemoglobin 6.6 g/dL (12.0-15.5) 7.2 g/dL (12.0-15.5) Hematocrit 20.6 % (36.0-47.0) 22.3 % (36.0-47.0) Mean Corpuscular Volume 77 fL (79-100) 77 fL (79-100) Mean Corpuscular Hemoglobin 25 pg (25-35) 25 pg (25-35) Mean Corpuscular Hemoglobin Concent 32 g/dL (31-37) 33 g/dL (31-37) Red Cell Distribution Width 16.0 % (11.5-14.5) 16.8 % (11.5-14.5) Platelet Count 169 x10^3/uL (140-400) 188 x10^3/uL (140-400) Neutrophils (%) (Auto) 72 % (31-73) 71 % (31-73) Lymphocytes (%) (Auto) 20 % (24-48) 19 % (24-48) Monocytes (%) (Auto) 3 % (0-9) 5 % (0-9) Eosinophils (%) (Auto) 5 % (0-3) 5 % (0-3) Basophils (%) (Auto) 1 % (0-3) 1 % (0-3) Neutrophils # (Auto) 3.8 x10^3uL (1.8-7.7) 4.1 x10^3uL (1.8-7.7) Lymphocytes # (Auto) 1.1 x10^3/uL (1.0-4.8) 1.1 x10^3/uL (1.0-4.8) Monocytes # (Auto) 0.2 x10^3/uL (0.0-1.1) 0.3 x10^3/uL (0.0-1.1) Eosinophils # (Auto) 0.2 x10^3/uL (0.0-0.7) 0.3 x10^3/uL (0.0-0.7) Basophils # (Auto) 0.0 x10^3/uL (0.0-0.2) 0.0 x10^3/uL (0.0-0.2) Sodium Level 140 mmol/L (136-145) 139 mmol/L (136-145) Potassium Level 3.4 mmol/L (3.5-5.1) 3.3 mmol/L (3.5-5.1) Chloride Level 103 mmol/L (98-107) 103 mmol/L (98-107) Carbon Dioxide Level 34 mmol/L (21-32) 32 mmol/L (21-32) Anion Gap 3 (6-14) 4 (6-14) Blood Urea Nitrogen 10 mg/dL (7-20) 8 mg/dL (7-20) Creatinine 0.5 mg/dL (0.6-1.0) 0.5 mg/dL (0.6-1.0) Estimated GFR (Cockcroft-Gault) 130.1 130.1 BUN/Creatinine Ratio 20 (6-20) Glucose Level 136 mg/dL (70-99) 156 mg/dL (70-99) Calcium Level 8.2 mg/dL (8.5-10.1) 8.3 mg/dL (8.5-10.1) Phosphorus Level 2.9 mg/dL (2.6-4.7) 3.1 mg/dL (2.6-4.7) Magnesium Level 1.6 mg/dL (1.8-2.4) 1.7 mg/dL (1.8-2.4) Total Bilirubin 0.5 mg/dL (0.2-1.0) Aspartate Amino Transf (AST/SGOT) 10 U/L (15-37) Alanine Aminotransferase (ALT/SGPT) < 6 U/L (14-59) Alkaline Phosphatase 66 U/L (46-116) Total Protein 6.3 g/dL (6.4-8.2) Albumin 2.0 g/dL (3.4-5.0) Albumin/Globulin Ratio 0.5 (1.0-1.7) Glucose (Fingerstick) 125 mg/dL (70-99) 134 mg/dL (70-99) Triglycerides Level 148 mg/dL (0-150) Assessment/Plan POD 4 nichols out bedside commode SCD's when in bed Problems: ELICIA ZAPATA MD Jun 10, 2017 10:53
--- NOTE | 2017-06-10 12:13 | PDOC ---
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 She is out of the ICU and was seen today at bedside. She was resting comfortably in NAD. Pt is on TPN and abx. Will continue wound care. Ordered IV KCl due to lab values of 3.3. Pt is being followed by GI and pulmonology. Will continue to monitor. Vitals Vitals Vital Signs Date Time Temp Pulse Resp B/P (MAP) Pulse Ox O2 Delivery O2 Flow Rate FiO2 06/10/17 11:00 97.8 84 16 151/70 (97) 95 Room Air 97.8 06/10/17 07:30 2.0 Physical Exam General: Alert, Oriented X3, Cooperative, No acute distress Heart: Regular rate, Normal S1, Normal S2 Lungs: Crackles Abdomen: Soft, Other (superficial wound dehiscence with Zbigniew exposed) Extremities: No clubbing, No cyanosis Skin: No rashes, No breakdown Labs LABS Laboratory Tests Test 06/09/17 17:20 06/09/17 21:40 06/10/17 05:25 06/10/17 07:54 White Blood Count 5.4 x10^3/uL (4.0-11.0) 5.8 x10^3/uL (4.0-11.0) Red Blood Count 2.69 x10^6/uL (3.50-5.40) 2.88 x10^6/uL (3.50-5.40) Hemoglobin 6.6 g/dL (12.0-15.5) 7.2 g/dL (12.0-15.5) Hematocrit 20.6 % (36.0-47.0) 22.3 % (36.0-47.0) Mean Corpuscular Volume 77 fL (79-100) 77 fL (79-100) Mean Corpuscular Hemoglobin 25 pg (25-35) 25 pg (25-35) Mean Corpuscular Hemoglobin Concent 32 g/dL (31-37) 33 g/dL (31-37) Red Cell Distribution Width 16.0 % (11.5-14.5) 16.8 % (11.5-14.5) Platelet Count 169 x10^3/uL (140-400) 188 x10^3/uL (140-400) Neutrophils (%) (Auto) 72 % (31-73) 71 % (31-73) Lymphocytes (%) (Auto) 20 % (24-48) 19 % (24-48) Monocytes (%) (Auto) 3 % (0-9) 5 % (0-9) Eosinophils (%) (Auto) 5 % (0-3) 5 % (0-3) Basophils (%) (Auto) 1 % (0-3) 1 % (0-3) Neutrophils # (Auto) 3.8 x10^3uL (1.8-7.7) 4.1 x10^3uL (1.8-7.7) Lymphocytes # (Auto) 1.1 x10^3/uL (1.0-4.8) 1.1 x10^3/uL (1.0-4.8) Monocytes # (Auto) 0.2 x10^3/uL (0.0-1.1) 0.3 x10^3/uL (0.0-1.1) Eosinophils # (Auto) 0.2 x10^3/uL (0.0-0.7) 0.3 x10^3/uL (0.0-0.7) Basophils # (Auto) 0.0 x10^3/uL (0.0-0.2) 0.0 x10^3/uL (0.0-0.2) Sodium Level 140 mmol/L (136-145) 139 mmol/L (136-145) Potassium Level 3.4 mmol/L (3.5-5.1) 3.3 mmol/L (3.5-5.1) Chloride Level 103 mmol/L (98-107) 103 mmol/L (98-107) Carbon Dioxide Level 34 mmol/L (21-32) 32 mmol/L (21-32) Anion Gap 3 (6-14) 4 (6-14) Blood Urea Nitrogen 10 mg/dL (7-20) 8 mg/dL (7-20) Creatinine 0.5 mg/dL (0.6-1.0) 0.5 mg/dL (0.6-1.0) Estimated GFR (Cockcroft-Gault) 130.1 130.1 BUN/Creatinine Ratio 20 (6-20) Glucose Level 136 mg/dL (70-99) 156 mg/dL (70-99) Calcium Level 8.2 mg/dL (8.5-10.1) 8.3 mg/dL (8.5-10.1) Phosphorus Level 2.9 mg/dL (2.6-4.7) 3.1 mg/dL (2.6-4.7) Magnesium Level 1.6 mg/dL (1.8-2.4) 1.7 mg/dL (1.8-2.4) Total Bilirubin 0.5 mg/dL (0.2-1.0) Aspartate Amino Transf (AST/SGOT) 10 U/L (15-37) Alanine Aminotransferase (ALT/SGPT) < 6 U/L (14-59) Alkaline Phosphatase 66 U/L (46-116) Total Protein 6.3 g/dL (6.4-8.2) Albumin 2.0 g/dL (3.4-5.0) Albumin/Globulin Ratio 0.5 (1.0-1.7) Glucose (Fingerstick) 125 mg/dL (70-99) 134 mg/dL (70-99) Triglycerides Level 148 mg/dL (0-150) Test 06/10/17 11:12 Glucose (Fingerstick) 123 mg/dL (70-99) Review of Systems Review of Systems Pt complains of fatigue and hunger Assessment and Plan Assessmemt and Plan Assessment: 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 Extubated 11/ HYpomagnesemia Hypothryoidism 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 Labs Laboratory Tests Test 06/09/17 17:20 06/09/17 21:40 06/10/17 05:25 06/10/17 07:54 White Blood Count 5.4 x10^3/uL (4.0-11.0) 5.8 x10^3/uL (4.0-11.0) Red Blood Count 2.69 x10^6/uL (3.50-5.40) 2.88 x10^6/uL (3.50-5.40) Hemoglobin 6.6 g/dL (12.0-15.5) 7.2 g/dL (12.0-15.5) Hematocrit 20.6 % (36.0-47.0) 22.3 % (36.0-47.0) Mean Corpuscular Volume 77 fL (79-100) 77 fL (79-100) Mean Corpuscular Hemoglobin 25 pg (25-35) 25 pg (25-35) Mean Corpuscular Hemoglobin Concent 32 g/dL (31-37) 33 g/dL (31-37) Red Cell Distribution Width 16.0 % (11.5-14.5) 16.8 % (11.5-14.5) Platelet Count 169 x10^3/uL (140-400) 188 x10^3/uL (140-400) Neutrophils (%) (Auto) 72 % (31-73) 71 % (31-73) Lymphocytes (%) (Auto) 20 % (24-48) 19 % (24-48) Monocytes (%) (Auto) 3 % (0-9) 5 % (0-9) Eosinophils (%) (Auto) 5 % (0-3) 5 % (0-3) Basophils (%) (Auto) 1 % (0-3) 1 % (0-3) Neutrophils # (Auto) 3.8 x10^3uL (1.8-7.7) 4.1 x10^3uL (1.8-7.7) Lymphocytes # (Auto) 1.1 x10^3/uL (1.0-4.8) 1.1 x10^3/uL (1.0-4.8) Monocytes # (Auto) 0.2 x10^3/uL (0.0-1.1) 0.3 x10^3/uL (0.0-1.1) Eosinophils # (Auto) 0.2 x10^3/uL (0.0-0.7) 0.3 x10^3/uL (0.0-0.7) Basophils # (Auto) 0.0 x10^3/uL (0.0-0.2) 0.0 x10^3/uL (0.0-0.2) Sodium Level 140 mmol/L (136-145) 139 mmol/L (136-145) Potassium Level 3.4 mmol/L (3.5-5.1) 3.3 mmol/L (3.5-5.1) Chloride Level 103 mmol/L (98-107) 103 mmol/L (98-107) Carbon Dioxide Level 34 mmol/L (21-32) 32 mmol/L (21-32) Anion Gap 3 (6-14) 4 (6-14) Blood Urea Nitrogen 10 mg/dL (7-20) 8 mg/dL (7-20) Creatinine 0.5 mg/dL (0.6-1.0) 0.5 mg/dL (0.6-1.0) Estimated GFR (Cockcroft-Gault) 130.1 130.1 BUN/Creatinine Ratio 20 (6-20) Glucose Level 136 mg/dL (70-99) 156 mg/dL (70-99) Calcium Level 8.2 mg/dL (8.5-10.1) 8.3 mg/dL (8.5-10.1) Phosphorus Level 2.9 mg/dL (2.6-4.7) 3.1 mg/dL (2.6-4.7) Magnesium Level 1.6 mg/dL (1.8-2.4) 1.7 mg/dL (1.8-2.4) Total Bilirubin 0.5 mg/dL (0.2-1.0) Aspartate Amino Transf (AST/SGOT) 10 U/L (15-37) Alanine Aminotransferase (ALT/SGPT) < 6 U/L (14-59) Alkaline Phosphatase 66 U/L (46-116) Total Protein 6.3 g/dL (6.4-8.2) Albumin 2.0 g/dL (3.4-5.0) Albumin/Globulin Ratio 0.5 (1.0-1.7) Glucose (Fingerstick) 125 mg/dL (70-99) 134 mg/dL (70-99) Triglycerides Level 148 mg/dL (0-150) Test 06/10/17 11:12 Glucose (Fingerstick) 123 mg/dL (70-99) Laboratory Tests Test 06/09/17 17:20 06/09/17 21:40 06/10/17 05:25 06/10/17 07:54 White Blood Count 5.4 x10^3/uL (4.0-11.0) 5.8 x10^3/uL (4.0-11.0) Red Blood Count 2.69 x10^6/uL (3.50-5.40) 2.88 x10^6/uL (3.50-5.40) Hemoglobin 6.6 g/dL (12.0-15.5) 7.2 g/dL (12.0-15.5) Hematocrit 20.6 % (36.0-47.0) 22.3 % (36.0-47.0) Mean Corpuscular Volume 77 fL (79-100) 77 fL (79-100) Mean Corpuscular Hemoglobin 25 pg (25-35) 25 pg (25-35) Mean Corpuscular Hemoglobin Concent 32 g/dL (31-37) 33 g/dL (31-37) Red Cell Distribution Width 16.0 % (11.5-14.5) 16.8 % (11.5-14.5) Platelet Count 169 x10^3/uL (140-400) 188 x10^3/uL (140-400) Neutrophils (%) (Auto) 72 % (31-73) 71 % (31-73) Lymphocytes (%) (Auto) 20 % (24-48) 19 % (24-48) Monocytes (%) (Auto) 3 % (0-9) 5 % (0-9) Eosinophils (%) (Auto) 5 % (0-3) 5 % (0-3) Basophils (%) (Auto) 1 % (0-3) 1 % (0-3) Neutrophils # (Auto) 3.8 x10^3uL (1.8-7.7) 4.1 x10^3uL (1.8-7.7) Lymphocytes # (Auto) 1.1 x10^3/uL (1.0-4.8) 1.1 x10^3/uL (1.0-4.8) Monocytes # (Auto) 0.2 x10^3/uL (0.0-1.1) 0.3 x10^3/uL (0.0-1.1) Eosinophils # (Auto) 0.2 x10^3/uL (0.0-0.7) 0.3 x10^3/uL (0.0-0.7) Basophils # (Auto) 0.0 x10^3/uL (0.0-0.2) 0.0 x10^3/uL (0.0-0.2) Sodium Level 140 mmol/L (136-145) 139 mmol/L (136-145) Potassium Level 3.4 mmol/L (3.5-5.1) 3.3 mmol/L (3.5-5.1) Chloride Level 103 mmol/L (98-107) 103 mmol/L (98-107) Carbon Dioxide Level 34 mmol/L (21-32) 32 mmol/L (21-32) Anion Gap 3 (6-14) 4 (6-14) Blood Urea Nitrogen 10 mg/dL (7-20) 8 mg/dL (7-20) Creatinine 0.5 mg/dL (0.6-1.0) 0.5 mg/dL (0.6-1.0) Estimated GFR (Cockcroft-Gault) 130.1 130.1 BUN/Creatinine Ratio 20 (6-20) Glucose Level 136 mg/dL (70-99) 156 mg/dL (70-99) Calcium Level 8.2 mg/dL (8.5-10.1) 8.3 mg/dL (8.5-10.1) Phosphorus Level 2.9 mg/dL (2.6-4.7) 3.1 mg/dL (2.6-4.7) Magnesium Level 1.6 mg/dL (1.8-2.4) 1.7 mg/dL (1.8-2.4) Total Bilirubin 0.5 mg/dL (0.2-1.0) Aspartate Amino Transf (AST/SGOT) 10 U/L (15-37) Alanine Aminotransferase (ALT/SGPT) < 6 U/L (14-59) Alkaline Phosphatase 66 U/L (46-116) Total Protein 6.3 g/dL (6.4-8.2) Albumin 2.0 g/dL (3.4-5.0) Albumin/Globulin Ratio 0.5 (1.0-1.7) Glucose (Fingerstick) 125 mg/dL (70-99) 134 mg/dL (70-99) Triglycerides Level 148 mg/dL (0-150) Test 06/10/17 11:12 Glucose (Fingerstick) 123 mg/dL (70-99) Medications Current Medications Ondansetron HCl (Zofran) 4 mg PRN Q6HRS PRN IV NAUSEA/VOMITING Last administered on 06/07/17 03:59; Start 06/06/17 at 07:00; Stop 06/07/17 at 06:59 ; Status DC Fentanyl Citrate (Fentanyl 2ml Vial) 25 mcg PRN Q5MIN PRN IV MILD PAIN; Start 06/06/17 at 07:00; Stop 06/07/17 at 06:59; Status DC Fentanyl Citrate (Fentanyl 2ml Vial) 50 mcg PRN Q5MIN PRN IV MODERATE PAIN Last administered on 06/06/17 16:11; Start 06/06/17 at 07:00; Stop 06/07/17 at 06:59; Status DC Morphine Sulfate 1 mg PRN Q10MIN PRN IV SEVERE PAIN Last administered on 16:51; Start 06/06/17 at 07:00; Stop 06/07/17 at 06:59; Status DC Ringer's Solution 1,000 ml @ 0 mls/hr Q0M IV Last administered on 06/06/17 07 :32; Start 06/06/17 at 07:00; Stop 06/06/17 at 18:59; Status DC Lidocaine HCl (Xylocaine-Mpf 1% Vial) 2 ml PRN 1X PRN ID PRIOR TO IV START; Start 06/06/17 at 07:00; Stop 06/07/17 at 06:59; Status DC Hydromorphone HCl (Dilaudid) 0.5 mg PRN Q10MIN PRN IV SEV PAIN, Second choice; Start 06/06/17 at 07:00; Stop 06/07/17 at 06:59; Status DC Prochlorperazine Edisylate (Compazine) 5 mg PACU PRN PRN IV NAUSEA, MRX1 Last administered on 06/06/17t 18:12; Start 06/06/17 at 07:00; Stop 06/07/17 at 06:59 ; Status DC Cefoxitin Sodium 50 ml @ As Directed STK-MED ONCE IV ; Start 06/06/17 at 07:20; Stop 06/06/17 at 07:21; Status DC Rocuronium [place] (Zemuron) 50 mg STK-MED ONCE .ROUTE ; Start 06/06/17 at 07:38 ; Stop 06/06/17 at 07:39; Status DC Midazolam HCl (Versed) 2 mg STK-MED ONCE .ROUTE ; Start 06/06/17 at 07:38; Stop 06/06/17 at 07:39; Status DC Fentanyl Citrate (Fentanyl 5ml Vial) 250 mcg STK-MED ONCE .ROUTE ; Start at 07:38; Stop 06/06/17 at 07:39; Status DC Propofol 20 ml @ As Directed STK-MED ONCE IV ; Start 06/06/17 at 07:38; Stop at 07:39; Status DC Lidocaine HCl (Lidocaine Pf 2% Vial) 5 ml STK-MED ONCE .ROUTE ; Start 06/06/17 at 07:38; Stop 06/06/17 at 07:39; Status DC Levofloxacin/ Dextrose 150 ml @ As Directed STK-MED ONCE IV ; Start 06/06/17 at 08:05; Stop 06/06/17 at 08:06; Status DC Levofloxacin/ Dextrose 150 ml @ 0 mls/hr 1X ONCE IV Last administered on t 08:33; Start 06/06/17 at 08:15; Stop 06/06/17 at 08:16; Status DC Sevoflurane (Ultane) 90 ml STK-MED ONCE IH ; Start 06/06/17 at 09:04; Stop 06/06 at 09:05; Status DC Cellulose 1 each STK-MED ONCE .ROUTE ; Start 06/06/17 at 09:06; Stop 06/06/17 at 09:07; Status DC Cellulose 1 each STK-MED ONCE TP Last administered on 06/06/17 09:07; Start 06/06/17 at 09:07; Stop 06/06/17 at 09:10; Status DC Rocuronium [place] (Zemuron) 100 mg STK-MED ONCE .ROUTE ; Start 06/06/17 at 09: 08; Stop 06/06/17 at 09:09; Status DC Fentanyl Citrate (Fentanyl 5ml Vial) 250 mcg STK-MED ONCE .ROUTE ; Start at 12:38; Stop 06/06/17 at 12:39; Status DC Albumin Human 500 ml @ As Directed STK-MED ONCE IV ; Start 06/06/17 at 13:36; Stop 06/06/17 at 13:37; Status DC Neostigmine Methylsulfate (Bloxiverz) 10 mg STK-MED ONCE .ROUTE ; Start at 13:57; Stop 06/06/17 at 13:58; Status DC Glycopyrrolate (Robinul) 1 mg STK-MED ONCE .ROUTE ; Start 06/06/17 at 13:57; Stop 06/06/17 at 13:58; Status DC Enoxaparin Sodium (Lovenox 40mg Syringe) 40 mg Q24H SQ Last administered on 17:25; Start 06/06/17 at 15:00 Sodium Chloride (Normal Saline Flush) 3 ml QSHIFT PRN IV AFTER MEDS AND BLOOD DRAWS; Start 06/06/17 at 14:45 Ringer's Solution 1,000 ml @ 50 mls/hr Q20H IV Last administered on 09:20; Start 06/06/17 at 14:41 Naloxone HCl (Narcan) 0.4 mg PRN Q2MIN PRN IV SEE INSTRUCTIONS; Start 06/06/17 at 14:45; Stop 06/07/17 at 13:45; Status DC Sodium Chloride 1,000 ml @ 25 mls/hr Q24H IV ; Start 06/06/17 at 14:41; Stop 06/07/17 at 13:44; Status DC Morphine Sulfate 30 ml @ 0 mls/hr CONT PRN PRN IV PROTOCOL Last administered on 06/06/17 16:15; Start 06/06/17 at 14:45; Stop 06/08/17 at 09:57; Status DC Levofloxacin/ Dextrose 150 ml @ 100 mls/hr Q24H IV Last administered on 09:10; Start 06/07/17 at 08:00 Midazolam HCl (Versed) 2 mg PRN Q1HR PRN IV SEDATION PT ON VENT; Start at 19:00; Stop 06/07/17 at 13:44; Status DC Propofol 100 ml @ 0 mls/hr CONT PRN IV SEE I/O RECORD Last administered on 06/07 03:17; Start 06/06/17 at 19:00; Stop 06/09/17 at 09:50; Status DC Chlorhexidine Gluconate (Peridex) 15 ml BID SWSP Last administered on 08:32; Start 06/06/17 at 21:00; Stop 06/07/17 at 13:44; Status DC Naloxone HCl (Narcan) 0.4 mg PRN Q2MIN PRN IV SEE INSTRUCTIONS; Start 06/07/17 at 11:30; Stop 06/10/17 at 02:07; Status DC Sodium Chloride 1,000 ml @ 25 mls/hr Q24H IV Last administered on 06/10/17 02:28; Start 06/07/17 at 11:18 Hydromorphone HCl 30 ml @ 0 mls/hr CONT PRN PRN IV PROTOCOL Last administered on 06/09/17 09:54; Start 06/07/17 at 11:30; Stop 06/09/17 at 22:32; Status DC Alteplase, Recombinant (Cathflo) 2 mg 1X ONCE INT CAT Last administered on 14:09; Start 06/07/17 at 12:30; Stop 06/07/17 at 12:31; Status DC Lorazepam (Ativan) 0.5 mg PRN Q6HRS PRN IV ANXIETY / AGITATION Last administered on 06/10/17 00:59; Start 06/07/17 at 17:45 Prochlorperazine Edisylate (Compazine) 10 mg PRN Q6HRS PRN IV NAUSEA/VOMITING Last administered on 06/09/17 17:24; Start 06/07/17 at 22:45 Info 1 each PRN DAILY PRN MC SEE COMMENTS Last administered on 06/09/17 12:40 ; Start 06/08/17 at 13:30 Sodium Chloride 90 meq/Potassium Chloride 50 meq/ Potassium Phosphate 13.6 mmol/ Magnesium Sulfate 10 meq/ Calcium Gluconate 10 meq/ Multivitamins 10 ml/Chromium / Copper/Manganese/ Seleni/Zn 1 ml/ Total Parenteral Nutrition/Amino Acids/ Dextrose/ Fat Emulsion Intravenous 1,512 ml @ 63 mls/hr TPN CONT IV Last administered on 06/08/17 22:56; Start 06/08/17 at 22:00; Stop 06/09/17 at 21: 59; Status DC Magnesium Sulfate/ Dextrose 50 ml @ 25 mls/hr 1X ONCE IV Last administered on 06/08/17 14:45; Start 06/08/17 at 14:00; Stop 06/08/17 at 15:59; Status DC Alteplase, Recombinant (Cathflo) 2 mg 1X ONCE INT CAT Last administered on 10:00; Start 06/09/17 at 08:45; Stop 06/09/17 at 08:46; Status DC Famotidine (Pepcid) 20 mg BID IVP Last administered on 06/10/17 09:10; Start 06/09/17 at 10:30 Fentanyl (Duragesic 25mcg/ Hr Patch) 1 patch Q3DAYS TD ; Start 06/09/17 at 10: 30; Stop 06/09/17 at 12:29; Status DC Levothyroxine Sodium 50 mcg/ Sodium Chloride 5 ml @ 100 mls/hr DAILY IVP Last administered on 06/10/17 09:10; Start 06/09/17 at 10:30 Diphenhydramine HCl (Benadryl) 25 mg PRN QHS PRN IVP sleep; Start 06/09/17 at 10:00 Sodium Chloride 90 meq/Potassium Chloride 50 meq/ Potassium Phosphate 20.4 mmol/ Magnesium Sulfate 20 meq/ Calcium Gluconate 10 meq/ Multivitamins 10 ml/Chromium / Copper/Manganese/ Seleni/Zn 1 ml/ Total Parenteral Nutrition/Amino Acids/ Dextrose/ Fat Emulsion Intravenous 1,512 ml @ 63 mls/hr TPN CONT IV Last administered on 06/09/17 23:28; Start 06/09/17 at 22:00; Stop 06/10/17 at 21 :59 Hydromorphone HCl (Dilaudid) 1 mg PRN Q3HRS PRN IV SEVERE PAIN Last administered on 06/10/17 00:16; Start 06/09/17 at 22:45; Stop 06/10/17 at 02 :07; Status DC Ketorolac Tromethamine (Toradol) 15 mg 1X ONCE IV ; Start 06/10/17 at 02:30; Stop 06/10/17 at 02:31; Status DC Naloxone HCl (Narcan) 0.4 mg PRN Q2MIN PRN IV SEE INSTRUCTIONS; Start at 02:00 Hydromorphone HCl 30 ml @ 0 mls/hr CONT PRN PRN IV PROTOCOL Last administered on 06/10/17 02:30; Start 06/10/17 at 02:00 Active Scripts Active Reported Acetaminophen 500 Mg Tablet 650 Mg PO EVERY 6 HRS PRN Diphenhydramine Hcl 50 Mg Capsule 1 Cap PO EVERY 4 HRS PRN Lorazepam 0.5 Mg Tablet 1 Tab PO EVERY 6 HRS PRN Trazodone Hcl 300 Mg Tablet 400 Mg PO HS Heparin 10 Unit/10 Ml (1/Ml) (Heparin Sodium,Porcine/Pf) 1 Unit/1 Ml Disp.syrin 5,000 Unit SUBCUT/PO EVERY 8 HRS Promethazine Hcl 6.25 Mg/5 Ml Syrup 5 Ml IV TID PRN PRN Levothyroxine Sodium 100 Mcg Tablet 100 Mcg IV HS Escitalopram Oxalate 5 Mg Tablet 20 Mg PO DAILY Pantoprazole Sodium 40 Mg Tablet.dr 1 Tab PO IV Tpn Electrolytes Ii Iv Soln (Sodium/K+/Mag/Ca/Chlor/Acetate) 20 Ml Vial 20 Ml IV FENTANYL 25mcg/hr (Fentanyl) 1 Each Patch.td72 1 Patch TP Q3DAYS Hydromorphone Hcl 4 Mg Tablet 1 Tab IV QIDPRN PRN Hydromorphone Hcl 4 Mg Tablet 2 Mg PO Vitals/I & O Vital Sign - Last 24 Hours 06/09/17 06/09/17 06/09/17 06/09/17 15:00 17:50 19:00 20:00 Temp 98.5 97.9 98.5 97.9 Pulse 89 98 Resp 18 16 B/P (MAP) 117/65 (82) 120/58 (78) Pulse Ox 91 93 O2 Delivery Nasal Cannula Nasal Cannula Nasal Cannula O2 Flow Rate 2.0 2.0 06/09/17 06/09/17 06/09/17 06/09/17 22:42 22:55 23:00 23:13 Temp 97.6 98.6 97.9 98.8 97.6 98.6 97.9 98.8 Pulse 102 103 95 98 Resp 16 B/P (MAP) 114/63 159/77 145/69 (94) 126/50 Pulse Ox 98 06/10/17 06/10/17 06/10/17 06/10/17 00:13 00:16 00:45 00:46 Temp 97.9 98.1 97.9 98.1 Pulse 95 94 Resp 16 B/P (MAP) 145/69 113/87 Pulse Ox 93 93 O2 Delivery Nasal Cannula Nasal Cannula O2 Flow Rate 2.0 2.0 06/10/17 06/10/17 06/10/17 06/10/17 01:45 02:30 02:40 03:00 Temp 98.2 98.2 Pulse 97 98 Resp 16 B/P (MAP) 144/67 (92) 135/65 (88) Pulse Ox 90 93 O2 Delivery Nasal Cannula Nasal Cannula O2 Flow Rate 2.0 2.0 2.0 06/10/17 06/10/17 06/10/17 06/10/17 03:00 03:30 04:30 07:00 Temp 98.6 97.9 98.6 97.9 Pulse 95 98 94 99 Resp 16 B/P (MAP) 152/75 (100) 153/71 (98) 152/78 (102) 161/68 (99) Pulse Ox 95 92 94 96 O2 Delivery Nasal Cannula O2 Flow Rate 2.0 2.0 06/10/17 06/10/17 07:30 11:00 Temp 97.8 97.8 Pulse 84 Resp 16 B/P (MAP) 151/70 (97) Pulse Ox 95 O2 Delivery Nasal Cannula Room Air O2 Flow Rate 2.0 Nutrition Consultation Dietary Evaluation: Recommendations by RD: PPN/TPN Comments: continue TPN: 250 g dextrose, 60 g AA, 40 g lipid Expected Outcomes/Goals: Initiation of nutrition within 24 - 48 hrs - met continue to meet > 65% nutrition needs via TPN Interpretation of weight loss: >7.5% in 3 months Malnutrition Findings: Food and Nutrition Intake (Mod: <75% est energy req 7days Weight Status: Morbidly Obese AMANDA HARDING III DO Jun 10, 2017 12:13
--- NOTE | 2017-06-10 12:33 | PDOC ---
PULMONARY PROGRESS NOTES Subjective PT ANXIOUS NO INCREASE SOA Vitals Vital Signs Date Time Temp Pulse Resp B/P (MAP) Pulse Ox O2 Delivery O2 Flow Rate FiO2 06/10/17 11:00 97.8 84 16 151/70 (97) 95 Room Air 97.8 06/10/17 07:30 2.0 Lungs: Crackles Cardiovascular: S1, S2 Abdomen: Soft, Other (OBESE) Neuro Exam: Alert Extremities: No Edema Skin: Warm Labs Laboratory Tests Test 06/09/17 17:20 06/09/17 21:40 06/10/17 05:25 06/10/17 07:54 White Blood Count 5.4 x10^3/uL (4.0-11.0) 5.8 x10^3/uL (4.0-11.0) Red Blood Count 2.69 x10^6/uL (3.50-5.40) 2.88 x10^6/uL (3.50-5.40) Hemoglobin 6.6 g/dL (12.0-15.5) 7.2 g/dL (12.0-15.5) Hematocrit 20.6 % (36.0-47.0) 22.3 % (36.0-47.0) Mean Corpuscular Volume 77 fL (79-100) 77 fL (79-100) Mean Corpuscular Hemoglobin 25 pg (25-35) 25 pg (25-35) Mean Corpuscular Hemoglobin Concent 32 g/dL (31-37) 33 g/dL (31-37) Red Cell Distribution Width 16.0 % (11.5-14.5) 16.8 % (11.5-14.5) Platelet Count 169 x10^3/uL (140-400) 188 x10^3/uL (140-400) Neutrophils (%) (Auto) 72 % (31-73) 71 % (31-73) Lymphocytes (%) (Auto) 20 % (24-48) 19 % (24-48) Monocytes (%) (Auto) 3 % (0-9) 5 % (0-9) Eosinophils (%) (Auto) 5 % (0-3) 5 % (0-3) Basophils (%) (Auto) 1 % (0-3) 1 % (0-3) Neutrophils # (Auto) 3.8 x10^3uL (1.8-7.7) 4.1 x10^3uL (1.8-7.7) Lymphocytes # (Auto) 1.1 x10^3/uL (1.0-4.8) 1.1 x10^3/uL (1.0-4.8) Monocytes # (Auto) 0.2 x10^3/uL (0.0-1.1) 0.3 x10^3/uL (0.0-1.1) Eosinophils # (Auto) 0.2 x10^3/uL (0.0-0.7) 0.3 x10^3/uL (0.0-0.7) Basophils # (Auto) 0.0 x10^3/uL (0.0-0.2) 0.0 x10^3/uL (0.0-0.2) Sodium Level 140 mmol/L (136-145) 139 mmol/L (136-145) Potassium Level 3.4 mmol/L (3.5-5.1) 3.3 mmol/L (3.5-5.1) Chloride Level 103 mmol/L (98-107) 103 mmol/L (98-107) Carbon Dioxide Level 34 mmol/L (21-32) 32 mmol/L (21-32) Anion Gap 3 (6-14) 4 (6-14) Blood Urea Nitrogen 10 mg/dL (7-20) 8 mg/dL (7-20) Creatinine 0.5 mg/dL (0.6-1.0) 0.5 mg/dL (0.6-1.0) Estimated GFR (Cockcroft-Gault) 130.1 130.1 BUN/Creatinine Ratio 20 (6-20) Glucose Level 136 mg/dL (70-99) 156 mg/dL (70-99) Calcium Level 8.2 mg/dL (8.5-10.1) 8.3 mg/dL (8.5-10.1) Phosphorus Level 2.9 mg/dL (2.6-4.7) 3.1 mg/dL (2.6-4.7) Magnesium Level 1.6 mg/dL (1.8-2.4) 1.7 mg/dL (1.8-2.4) Total Bilirubin 0.5 mg/dL (0.2-1.0) Aspartate Amino Transf (AST/SGOT) 10 U/L (15-37) Alanine Aminotransferase (ALT/SGPT) < 6 U/L (14-59) Alkaline Phosphatase 66 U/L (46-116) Total Protein 6.3 g/dL (6.4-8.2) Albumin 2.0 g/dL (3.4-5.0) Albumin/Globulin Ratio 0.5 (1.0-1.7) Glucose (Fingerstick) 125 mg/dL (70-99) 134 mg/dL (70-99) Triglycerides Level 148 mg/dL (0-150) Test 06/10/17 11:12 Glucose (Fingerstick) 123 mg/dL (70-99) Laboratory Tests Test 06/09/17 17:20 06/09/17 21:40 06/10/17 05:25 06/10/17 07:54 White Blood Count 5.4 x10^3/uL (4.0-11.0) 5.8 x10^3/uL (4.0-11.0) Red Blood Count 2.69 x10^6/uL (3.50-5.40) 2.88 x10^6/uL (3.50-5.40) Hemoglobin 6.6 g/dL (12.0-15.5) 7.2 g/dL (12.0-15.5) Hematocrit 20.6 % (36.0-47.0) 22.3 % (36.0-47.0) Mean Corpuscular Volume 77 fL (79-100) 77 fL (79-100) Mean Corpuscular Hemoglobin 25 pg (25-35) 25 pg (25-35) Mean Corpuscular Hemoglobin Concent 32 g/dL (31-37) 33 g/dL (31-37) Red Cell Distribution Width 16.0 % (11.5-14.5) 16.8 % (11.5-14.5) Platelet Count 169 x10^3/uL (140-400) 188 x10^3/uL (140-400) Neutrophils (%) (Auto) 72 % (31-73) 71 % (31-73) Lymphocytes (%) (Auto) 20 % (24-48) 19 % (24-48) Monocytes (%) (Auto) 3 % (0-9) 5 % (0-9) Eosinophils (%) (Auto) 5 % (0-3) 5 % (0-3) Basophils (%) (Auto) 1 % (0-3) 1 % (0-3) Neutrophils # (Auto) 3.8 x10^3uL (1.8-7.7) 4.1 x10^3uL (1.8-7.7) Lymphocytes # (Auto) 1.1 x10^3/uL (1.0-4.8) 1.1 x10^3/uL (1.0-4.8) Monocytes # (Auto) 0.2 x10^3/uL (0.0-1.1) 0.3 x10^3/uL (0.0-1.1) Eosinophils # (Auto) 0.2 x10^3/uL (0.0-0.7) 0.3 x10^3/uL (0.0-0.7) Basophils # (Auto) 0.0 x10^3/uL (0.0-0.2) 0.0 x10^3/uL (0.0-0.2) Sodium Level 140 mmol/L (136-145) 139 mmol/L (136-145) Potassium Level 3.4 mmol/L (3.5-5.1) 3.3 mmol/L (3.5-5.1) Chloride Level 103 mmol/L (98-107) 103 mmol/L (98-107) Carbon Dioxide Level 34 mmol/L (21-32) 32 mmol/L (21-32) Anion Gap 3 (6-14) 4 (6-14) Blood Urea Nitrogen 10 mg/dL (7-20) 8 mg/dL (7-20) Creatinine 0.5 mg/dL (0.6-1.0) 0.5 mg/dL (0.6-1.0) Estimated GFR (Cockcroft-Gault) 130.1 130.1 BUN/Creatinine Ratio 20 (6-20) Glucose Level 136 mg/dL (70-99) 156 mg/dL (70-99) Calcium Level 8.2 mg/dL (8.5-10.1) 8.3 mg/dL (8.5-10.1) Phosphorus Level 2.9 mg/dL (2.6-4.7) 3.1 mg/dL (2.6-4.7) Magnesium Level 1.6 mg/dL (1.8-2.4) 1.7 mg/dL (1.8-2.4) Total Bilirubin 0.5 mg/dL (0.2-1.0) Aspartate Amino Transf (AST/SGOT) 10 U/L (15-37) Alanine Aminotransferase (ALT/SGPT) < 6 U/L (14-59) Alkaline Phosphatase 66 U/L (46-116) Total Protein 6.3 g/dL (6.4-8.2) Albumin 2.0 g/dL (3.4-5.0) Albumin/Globulin Ratio 0.5 (1.0-1.7) Glucose (Fingerstick) 125 mg/dL (70-99) 134 mg/dL (70-99) Triglycerides Level 148 mg/dL (0-150) Test 06/10/17 11:12 Glucose (Fingerstick) 123 mg/dL (70-99) Medications Active Scripts Medications Dose Route/Sig Max Daily Dose Days Date Category Acetaminophen 500 Mg Tablet 650 Mg PO EVERY 6 HRS PRN 06/06/17 Reported Diphenhydramine Hcl 50 Mg Capsule 1 Cap PO EVERY 4 HRS PRN 06/06/17 Reported Lorazepam 0.5 Mg Tablet 1 Tab PO EVERY 6 HRS PRN 06/06/17 Reported Trazodone Hcl 300 Mg Tablet 400 Mg PO HS 06/06/17 Reported Heparin 10 Unit/10 Ml (1/Ml) (Heparin Sodium,Porcine/Pf) 1 Unit/1 Ml Disp.syrin 5,000 Unit SUBCUT/PO EVERY 8 HRS 06/06/17 Reported Promethazine Hcl 6.25 Mg/5 Ml Syrup 5 Ml IV TID PRN PRN 06/06/17 Reported Levothyroxine Sodium 100 Mcg Tablet 100 Mcg IV HS 06/06/17 Reported Escitalopram Oxalate 5 Mg Tablet 20 Mg PO DAILY 06/06/17 Reported Pantoprazole Sodium 40 Mg Tablet. 1 Tab PO IV 06/06/17 Reported Tpn Electrolytes Ii Iv Soln (Sodium/K+/Mag/Ca/Chlor/Acetate) 20 Ml Vial 20 Ml IV 11/7/17 Reported FENTANYL 25mcg/hr (Fentanyl) 1 Each Patch.td72 1 Patch TP Q3DAYS 06/06/17 Reported Hydromorphone Hcl 4 Mg Tablet 1 Tab IV QIDPRN PRN 06/06/17 Reported Hydromorphone Hcl 4 Mg Tablet 2 Mg PO 06/06/17 Reported Impression . ACUTE RESP FAILURE EXPECTED S/P SURGERY EXPENSIVE SURGERY PT MORBID OBESITY HTN H/O DVT Exploratory laparotomy, extensive lysis of adhesions, Excision of enterocutaneous fistula, ileocolic resection, liver laceration repair, ventral incisional hernia repair, debridement of abdominal wall wound Plan . EXTUBATED 06/08 RESP STATUS COMPENSATED 02 FOR NOW 6 MIN WALK PRIOR TO D/C POST OP CARE FOLLOW GI INPUT DVT GI PROPH JOLLY CARDOSO MD Jun 10, 2017 12:33
[2017-06-10] MEDS: TPN PER PHARMACY MC PRN (12:49)
[2017-06-10] MEDS: POTASSIUM CHLORIDE 20MEQ 50 ML IV SCH ×2 (12:57→14:17)
[2017-06-10] MEDS ORDERED: MAGNESIUM SULFATE 1GM 100 ML IV ONE (13:30)
[2017-06-10] MEDS: ENOXAPARIN 40 MG/0.4 ML SYRINGE. SQ SCH (15:28)
[2017-06-10] MEDS ORDERED: [UNRECOGNIZED DRUG - OTHER] IV SCH ×10 (22:00)
[2017-06-10] MEDS ORDERED: TOTAL PARENTERAL NUTRITION IV SCH ×10 (22:00)
[2017-06-10] MEDS ORDERED: DEXTROSE 70% IV SCH ×10 (22:00)
[2017-06-10] MEDS ORDERED: AMINO ACIDS IV SCH ×10 (22:00)
[2017-06-10] MEDS ORDERED: PHENOL ORAL SPRAY 177ML BOTTLE. PO PRN (22:45)
[2017-06-11] MEDS: diphenhydrAMINE 50 MG/ML VIAL IVP PRN ×2 (00:54→21:27)
[2017-06-11 03:19] VITALS: BP 144/97
[2017-06-11] MEDS: PROCHLORPERAZINE 10 MG/2 ML VIAL. IV PRN ×2 (04:55→21:26)
[2017-06-11 05:27] LABS: BASO % 0 % (0-3); EOS % 5 % (0-3); HEMATOCRIT 22.5 % (36.0-47.0); HEMOGLOBIN 7.3 g/dL (12.0-15.5); LYMPH # 1.3 x10^3/uL (1.0-4.8); LYMPH % 22 % (24-48); MEAN CORPUSCULAR HEMOGLOBIN 26 pg (25-35); MEAN CORPUSCULAR HGB CONC 33 g/dL (31-37); MEAN CORPUSCULAR VOLUME 78 fL (79-100); MONO % 7 % (0-9); NEUT % 66 % (31-73); PLATELET COUNT 191 x10^3/uL (140-400); RED BLOOD COUNT 2.87 x10^6/uL (3.50-5.40); RED CELL DISTRIBUTION WIDTH 17.3 % (11.5-14.5); WHITE BLOOD COUNT 5.9 x10^3/uL (4.0-11.0)
[2017-06-11 06:28] LABS: CALCIUM 8.1 mg/dL (8.5-10.1); CREATININE 0.5 mg/dL (0.6-1.0); GFR 130.1; POTASSIUM 3.8 mmol/L (3.5-5.1)
[2017-06-11 06:32] LABS: MAGNESIUM 1.9 mg/dL (1.8-2.4); PHOSPHORUS 3.4 mg/dL (2.6-4.7)
[2017-06-11 07:00] VITALS: BP 162/96
[2017-06-11] MEDS: FAMOTIDINE 20 MG/2 ML VIAL IVP SCH ×2 (09:38→21:26)
[2017-06-11] MEDS: LEVOTHYROXINE SODIUM 50 MCG in IV NORMAL SALINE 50ML 5 ML IVP SCH (09:39)
[2017-06-11] MEDS: IV NORMAL SALINE 1000ML BAG 1,000 ML IV SCH (09:39)
[2017-06-11] MEDS: IV RINGERS,LACTATED 1000ML 1,000 ML IV SCH (09:40)
--- NOTE | 2017-06-11 10:47 | PDOC ---
SURGICAL PROGRESS NOTE Subjective no new complaints has been up to the commode to void, has had stools Vital Signs Vital Signs Date Time Temp Pulse Resp B/P (MAP) Pulse Ox O2 Delivery O2 Flow Rate FiO2 06/11/17 07:00 98.1 101 22 162/96 (118) 93 Nasal Cannula 2.0 98.1 I&O Intake and Output 06/12/17 07:00 Output Total 100 ml Balance -100 ml Gastric Drainage Total 100 ml PATIENT HAS A GARCIA: No General: Alert, Oriented X3, No acute distress Abdomen: Soft Labs Laboratory Tests Test 06/09/17 17:20 06/09/17 21:40 06/10/17 02:45 06/10/17 05:25 White Blood Count 5.4 x10^3/uL (4.0-11.0) 5.8 x10^3/uL (4.0-11.0) Red Blood Count 2.69 x10^6/uL (3.50-5.40) 2.88 x10^6/uL (3.50-5.40) Hemoglobin 6.6 g/dL (12.0-15.5) 7.2 g/dL (12.0-15.5) Hematocrit 20.6 % (36.0-47.0) 22.3 % (36.0-47.0) Mean Corpuscular Volume 77 fL (79-100) 77 fL (79-100) Mean Corpuscular Hemoglobin 25 pg (25-35) 25 pg (25-35) Mean Corpuscular Hemoglobin Concent 32 g/dL (31-37) 33 g/dL (31-37) Red Cell Distribution Width 16.0 % (11.5-14.5) 16.8 % (11.5-14.5) Platelet Count 169 x10^3/uL (140-400) 188 x10^3/uL (140-400) Neutrophils (%) (Auto) 72 % (31-73) 71 % (31-73) Lymphocytes (%) (Auto) 20 % (24-48) 19 % (24-48) Monocytes (%) (Auto) 3 % (0-9) 5 % (0-9) Eosinophils (%) (Auto) 5 % (0-3) 5 % (0-3) Basophils (%) (Auto) 1 % (0-3) 1 % (0-3) Neutrophils # (Auto) 3.8 x10^3uL (1.8-7.7) 4.1 x10^3uL (1.8-7.7) Lymphocytes # (Auto) 1.1 x10^3/uL (1.0-4.8) 1.1 x10^3/uL (1.0-4.8) Monocytes # (Auto) 0.2 x10^3/uL (0.0-1.1) 0.3 x10^3/uL (0.0-1.1) Eosinophils # (Auto) 0.2 x10^3/uL (0.0-0.7) 0.3 x10^3/uL (0.0-0.7) Basophils # (Auto) 0.0 x10^3/uL (0.0-0.2) 0.0 x10^3/uL (0.0-0.2) Sodium Level 140 mmol/L (136-145) 139 mmol/L (136-145) Potassium Level 3.4 mmol/L (3.5-5.1) 3.3 mmol/L (3.5-5.1) Chloride Level 103 mmol/L (98-107) 103 mmol/L (98-107) Carbon Dioxide Level 34 mmol/L (21-32) 32 mmol/L (21-32) Anion Gap 3 (6-14) 4 (6-14) Blood Urea Nitrogen 10 mg/dL (7-20) 8 mg/dL (7-20) Creatinine 0.5 mg/dL (0.6-1.0) 0.5 mg/dL (0.6-1.0) Estimated GFR (Cockcroft-Gault) 130.1 130.1 BUN/Creatinine Ratio 20 (6-20) Glucose Level 136 mg/dL (70-99) 156 mg/dL (70-99) Calcium Level 8.2 mg/dL (8.5-10.1) 8.3 mg/dL (8.5-10.1) Phosphorus Level 2.9 mg/dL (2.6-4.7) 3.1 mg/dL (2.6-4.7) Magnesium Level 1.6 mg/dL (1.8-2.4) 1.7 mg/dL (1.8-2.4) Total Bilirubin 0.5 mg/dL (0.2-1.0) Aspartate Amino Transf (AST/SGOT) 10 U/L (15-37) Alanine Aminotransferase (ALT/SGPT) < 6 U/L (14-59) Alkaline Phosphatase 66 U/L (46-116) Total Protein 6.3 g/dL (6.4-8.2) Albumin 2.0 g/dL (3.4-5.0) Albumin/Globulin Ratio 0.5 (1.0-1.7) Glucose (Fingerstick) 125 mg/dL (70-99) Clostridium difficile Toxin (PCR) Negative (Negative) Triglycerides Level 148 mg/dL (0-150) Test 06/10/17 07:54 06/10/17 11:12 06/10/17 16:25 06/10/17 21:03 Glucose (Fingerstick) 134 mg/dL (70-99) 123 mg/dL (70-99) 145 mg/dL (70-99) 132 mg/dL (70-99) Test 06/11/17 04:40 06/11/17 07:15 White Blood Count 5.9 x10^3/uL (4.0-11.0) Red Blood Count 2.87 x10^6/uL (3.50-5.40) Hemoglobin 7.3 g/dL (12.0-15.5) Hematocrit 22.5 % (36.0-47.0) Mean Corpuscular Volume 78 fL (79-100) Mean Corpuscular Hemoglobin 26 pg (25-35) Mean Corpuscular Hemoglobin Concent 33 g/dL (31-37) Red Cell Distribution Width 17.3 % (11.5-14.5) Platelet Count 191 x10^3/uL (140-400) Neutrophils (%) (Auto) 66 % (31-73) Lymphocytes (%) (Auto) 22 % (24-48) Monocytes (%) (Auto) 7 % (0-9) Eosinophils (%) (Auto) 5 % (0-3) Basophils (%) (Auto) 0 % (0-3) Neutrophils # (Auto) 3.9 x10^3uL (1.8-7.7) Lymphocytes # (Auto) 1.3 x10^3/uL (1.0-4.8) Monocytes # (Auto) 0.4 x10^3/uL (0.0-1.1) Eosinophils # (Auto) 0.3 x10^3/uL (0.0-0.7) Basophils # (Auto) 0.0 x10^3/uL (0.0-0.2) Sodium Level 141 mmol/L (136-145) Potassium Level 3.8 mmol/L (3.5-5.1) Chloride Level 104 mmol/L (98-107) Carbon Dioxide Level 29 mmol/L (21-32) Anion Gap 8 (6-14) Blood Urea Nitrogen 8 mg/dL (7-20) Creatinine 0.5 mg/dL (0.6-1.0) Estimated GFR (Cockcroft-Gault) 130.1 Glucose Level 138 mg/dL (70-99) Calcium Level 8.1 mg/dL (8.5-10.1) Phosphorus Level 3.4 mg/dL (2.6-4.7) Magnesium Level 1.9 mg/dL (1.8-2.4) Glucose (Fingerstick) 128 mg/dL (70-99) Laboratory Tests Test 06/10/17 11:12 06/10/17 16:25 06/10/17 21:03 06/11/17 04:40 Glucose (Fingerstick) 123 mg/dL (70-99) 145 mg/dL (70-99) 132 mg/dL (70-99) White Blood Count 5.9 x10^3/uL (4.0-11.0) Red Blood Count 2.87 x10^6/uL (3.50-5.40) Hemoglobin 7.3 g/dL (12.0-15.5) Hematocrit 22.5 % (36.0-47.0) Mean Corpuscular Volume 78 fL (79-100) Mean Corpuscular Hemoglobin 26 pg (25-35) Mean Corpuscular Hemoglobin Concent 33 g/dL (31-37) Red Cell Distribution Width 17.3 % (11.5-14.5) Platelet Count 191 x10^3/uL (140-400) Neutrophils (%) (Auto) 66 % (31-73) Lymphocytes (%) (Auto) 22 % (24-48) Monocytes (%) (Auto) 7 % (0-9) Eosinophils (%) (Auto) 5 % (0-3) Basophils (%) (Auto) 0 % (0-3) Neutrophils # (Auto) 3.9 x10^3uL (1.8-7.7) Lymphocytes # (Auto) 1.3 x10^3/uL (1.0-4.8) Monocytes # (Auto) 0.4 x10^3/uL (0.0-1.1) Eosinophils # (Auto) 0.3 x10^3/uL (0.0-0.7) Basophils # (Auto) 0.0 x10^3/uL (0.0-0.2) Sodium Level 141 mmol/L (136-145) Potassium Level 3.8 mmol/L (3.5-5.1) Chloride Level 104 mmol/L (98-107) Carbon Dioxide Level 29 mmol/L (21-32) Anion Gap 8 (6-14) Blood Urea Nitrogen 8 mg/dL (7-20) Creatinine 0.5 mg/dL (0.6-1.0) Estimated GFR (Cockcroft-Gault) 130.1 Glucose Level 138 mg/dL (70-99) Calcium Level 8.1 mg/dL (8.5-10.1) Phosphorus Level 3.4 mg/dL (2.6-4.7) Magnesium Level 1.9 mg/dL (1.8-2.4) Test 06/11/17 07:15 Glucose (Fingerstick) 128 mg/dL (70-99) Assessment/Plan POD 5 SBR d/c NG start clears Problems: ELICIA ZAPATA MD Jun 11, 2017 10:47
[2017-06-11 11:00] VITALS: BP 142/77
[2017-06-11] MEDS: TPN PER PHARMACY MC PRN (12:02)
--- NOTE | 2017-06-11 13:32 | PDOC ---
PULMONARY PROGRESS NOTES Subjective NO INCREASE SOA Vitals Vital Signs Date Time Temp Pulse Resp B/P (MAP) Pulse Ox O2 Delivery O2 Flow Rate FiO2 06/11/17 11:00 97.9 82 20 142/77 (98) 91 Nasal Cannula 2.0 97.9 Lungs: Clear Cardiovascular: S1, S2 Abdomen: Soft, Other (OBESE) Neuro Exam: Alert Extremities: No Edema Skin: Warm Labs Laboratory Tests Test 06/09/17 17:20 06/09/17 21:40 06/10/17 02:45 06/10/17 05:25 White Blood Count 5.4 x10^3/uL (4.0-11.0) 5.8 x10^3/uL (4.0-11.0) Red Blood Count 2.69 x10^6/uL (3.50-5.40) 2.88 x10^6/uL (3.50-5.40) Hemoglobin 6.6 g/dL (12.0-15.5) 7.2 g/dL (12.0-15.5) Hematocrit 20.6 % (36.0-47.0) 22.3 % (36.0-47.0) Mean Corpuscular Volume 77 fL (79-100) 77 fL (79-100) Mean Corpuscular Hemoglobin 25 pg (25-35) 25 pg (25-35) Mean Corpuscular Hemoglobin Concent 32 g/dL (31-37) 33 g/dL (31-37) Red Cell Distribution Width 16.0 % (11.5-14.5) 16.8 % (11.5-14.5) Platelet Count 169 x10^3/uL (140-400) 188 x10^3/uL (140-400) Neutrophils (%) (Auto) 72 % (31-73) 71 % (31-73) Lymphocytes (%) (Auto) 20 % (24-48) 19 % (24-48) Monocytes (%) (Auto) 3 % (0-9) 5 % (0-9) Eosinophils (%) (Auto) 5 % (0-3) 5 % (0-3) Basophils (%) (Auto) 1 % (0-3) 1 % (0-3) Neutrophils # (Auto) 3.8 x10^3uL (1.8-7.7) 4.1 x10^3uL (1.8-7.7) Lymphocytes # (Auto) 1.1 x10^3/uL (1.0-4.8) 1.1 x10^3/uL (1.0-4.8) Monocytes # (Auto) 0.2 x10^3/uL (0.0-1.1) 0.3 x10^3/uL (0.0-1.1) Eosinophils # (Auto) 0.2 x10^3/uL (0.0-0.7) 0.3 x10^3/uL (0.0-0.7) Basophils # (Auto) 0.0 x10^3/uL (0.0-0.2) 0.0 x10^3/uL (0.0-0.2) Sodium Level 140 mmol/L (136-145) 139 mmol/L (136-145) Potassium Level 3.4 mmol/L (3.5-5.1) 3.3 mmol/L (3.5-5.1) Chloride Level 103 mmol/L (98-107) 103 mmol/L (98-107) Carbon Dioxide Level 34 mmol/L (21-32) 32 mmol/L (21-32) Anion Gap 3 (6-14) 4 (6-14) Blood Urea Nitrogen 10 mg/dL (7-20) 8 mg/dL (7-20) Creatinine 0.5 mg/dL (0.6-1.0) 0.5 mg/dL (0.6-1.0) Estimated GFR (Cockcroft-Gault) 130.1 130.1 BUN/Creatinine Ratio 20 (6-20) Glucose Level 136 mg/dL (70-99) 156 mg/dL (70-99) Calcium Level 8.2 mg/dL (8.5-10.1) 8.3 mg/dL (8.5-10.1) Phosphorus Level 2.9 mg/dL (2.6-4.7) 3.1 mg/dL (2.6-4.7) Magnesium Level 1.6 mg/dL (1.8-2.4) 1.7 mg/dL (1.8-2.4) Total Bilirubin 0.5 mg/dL (0.2-1.0) Aspartate Amino Transf (AST/SGOT) 10 U/L (15-37) Alanine Aminotransferase (ALT/SGPT) < 6 U/L (14-59) Alkaline Phosphatase 66 U/L (46-116) Total Protein 6.3 g/dL (6.4-8.2) Albumin 2.0 g/dL (3.4-5.0) Albumin/Globulin Ratio 0.5 (1.0-1.7) Glucose (Fingerstick) 125 mg/dL (70-99) Clostridium difficile Toxin (PCR) Negative (Negative) Triglycerides Level 148 mg/dL (0-150) Test 06/10/17 07:54 06/10/17 11:12 06/10/17 16:25 06/10/17 21:03 Glucose (Fingerstick) 134 mg/dL (70-99) 123 mg/dL (70-99) 145 mg/dL (70-99) 132 mg/dL (70-99) Test 06/11/17 04:40 06/11/17 07:15 06/11/17 11:05 White Blood Count 5.9 x10^3/uL (4.0-11.0) Red Blood Count 2.87 x10^6/uL (3.50-5.40) Hemoglobin 7.3 g/dL (12.0-15.5) Hematocrit 22.5 % (36.0-47.0) Mean Corpuscular Volume 78 fL (79-100) Mean Corpuscular Hemoglobin 26 pg (25-35) Mean Corpuscular Hemoglobin Concent 33 g/dL (31-37) Red Cell Distribution Width 17.3 % (11.5-14.5) Platelet Count 191 x10^3/uL (140-400) Neutrophils (%) (Auto) 66 % (31-73) Lymphocytes (%) (Auto) 22 % (24-48) Monocytes (%) (Auto) 7 % (0-9) Eosinophils (%) (Auto) 5 % (0-3) Basophils (%) (Auto) 0 % (0-3) Neutrophils # (Auto) 3.9 x10^3uL (1.8-7.7) Lymphocytes # (Auto) 1.3 x10^3/uL (1.0-4.8) Monocytes # (Auto) 0.4 x10^3/uL (0.0-1.1) Eosinophils # (Auto) 0.3 x10^3/uL (0.0-0.7) Basophils # (Auto) 0.0 x10^3/uL (0.0-0.2) Sodium Level 141 mmol/L (136-145) Potassium Level 3.8 mmol/L (3.5-5.1) Chloride Level 104 mmol/L (98-107) Carbon Dioxide Level 29 mmol/L (21-32) Anion Gap 8 (6-14) Blood Urea Nitrogen 8 mg/dL (7-20) Creatinine 0.5 mg/dL (0.6-1.0) Estimated GFR (Cockcroft-Gault) 130.1 Glucose Level 138 mg/dL (70-99) Calcium Level 8.1 mg/dL (8.5-10.1) Phosphorus Level 3.4 mg/dL (2.6-4.7) Magnesium Level 1.9 mg/dL (1.8-2.4) Glucose (Fingerstick) 128 mg/dL (70-99) 118 mg/dL (70-99) Laboratory Tests Test 06/10/17 16:25 06/10/17 21:03 06/11/17 04:40 06/11/17 07:15 Glucose (Fingerstick) 145 mg/dL (70-99) 132 mg/dL (70-99) 128 mg/dL (70-99) White Blood Count 5.9 x10^3/uL (4.0-11.0) Red Blood Count 2.87 x10^6/uL (3.50-5.40) Hemoglobin 7.3 g/dL (12.0-15.5) Hematocrit 22.5 % (36.0-47.0) Mean Corpuscular Volume 78 fL (79-100) Mean Corpuscular Hemoglobin 26 pg (25-35) Mean Corpuscular Hemoglobin Concent 33 g/dL (31-37) Red Cell Distribution Width 17.3 % (11.5-14.5) Platelet Count 191 x10^3/uL (140-400) Neutrophils (%) (Auto) 66 % (31-73) Lymphocytes (%) (Auto) 22 % (24-48) Monocytes (%) (Auto) 7 % (0-9) Eosinophils (%) (Auto) 5 % (0-3) Basophils (%) (Auto) 0 % (0-3) Neutrophils # (Auto) 3.9 x10^3uL (1.8-7.7) Lymphocytes # (Auto) 1.3 x10^3/uL (1.0-4.8) Monocytes # (Auto) 0.4 x10^3/uL (0.0-1.1) Eosinophils # (Auto) 0.3 x10^3/uL (0.0-0.7) Basophils # (Auto) 0.0 x10^3/uL (0.0-0.2) Sodium Level 141 mmol/L (136-145) Potassium Level 3.8 mmol/L (3.5-5.1) Chloride Level 104 mmol/L (98-107) Carbon Dioxide Level 29 mmol/L (21-32) Anion Gap 8 (6-14) Blood Urea Nitrogen 8 mg/dL (7-20) Creatinine 0.5 mg/dL (0.6-1.0) Estimated GFR (Cockcroft-Gault) 130.1 Glucose Level 138 mg/dL (70-99) Calcium Level 8.1 mg/dL (8.5-10.1) Phosphorus Level 3.4 mg/dL (2.6-4.7) Magnesium Level 1.9 mg/dL (1.8-2.4) Test 06/11/17 11:05 Glucose (Fingerstick) 118 mg/dL (70-99) Medications Active Scripts Medications Dose Route/Sig Max Daily Dose Days Date Category Acetaminophen 500 Mg Tablet 650 Mg PO EVERY 6 HRS PRN 06/06/17 Reported Diphenhydramine Hcl 50 Mg Capsule 1 Cap PO EVERY 4 HRS PRN 06/06/17 Reported Lorazepam 0.5 Mg Tablet 1 Tab PO EVERY 6 HRS PRN 06/06/17 Reported Trazodone Hcl 300 Mg Tablet 400 Mg PO HS 06/06/17 Reported Heparin 10 Unit/10 Ml (1/Ml) (Heparin Sodium,Porcine/Pf) 1 Unit/1 Ml Disp.syrin 5,000 Unit SUBCUT/PO EVERY 8 HRS 06/06/17 Reported Promethazine Hcl 6.25 Mg/5 Ml Syrup 5 Ml IV TID PRN PRN 06/06/17 Reported Levothyroxine Sodium 100 Mcg Tablet 100 Mcg IV HS 06/06/17 Reported Escitalopram Oxalate 5 Mg Tablet 20 Mg PO DAILY 06/06/17 Reported Pantoprazole Sodium 40 Mg Tablet.dr 1 Tab PO IV 06/06/17 Reported Tpn Electrolytes Ii Iv Soln (Sodium/K+/Mag/Ca/Chlor/Acetate) 20 Ml Vial 20 Ml IV 06/06/17 Reported FENTANYL 25mcg/hr (Fentanyl) 1 Each Patch.td72 1 Patch TP Q3DAYS 06/06/17 Reported Hydromorphone Hcl 4 Mg Tablet 1 Tab IV QIDPRN PRN 06/06/17 Reported Hydromorphone Hcl 4 Mg Tablet 2 Mg PO 06/06/17 Reported Impression . 1. Acute respiratory failure, expected status post extensive surgery to the abdomen in a morbid obese individual with multiple comorbidities. 2. Hypertension. 3. Diabetes. 4. Peripheral neuropathy. 5. Anxiety and depression. 6. History of deep venous thrombosis. 7. Endometrial cancer. 8. Prior history of esophageal injury with peritonitis. Exploratory laparotomy, extensive lysis of adhesions, Excision of enterocutaneous fistula, ileocolic resection, liver laceration repair, ventral incisional hernia repair, debridement of abdominal wall wound Plan . ADVANCE DIET EXTUBATED 06/08 RESP STATUS COMPENSATED 02 FOR NOW 6 MIN WALK PRIOR TO D/C POST OP CARE FOLLOW GI INPUT DVT GI PROPH JOLLY CARDOSO MD Jun 11, 2017 13:32
--- NOTE | 2017-06-11 14:34 | PDOC ---
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 She is out of the ICU and was seen today at bedside. She was resting comfortably in NAD. Pt is on TPN and abx. Her nichols catheter has been removed. Continue O2 per nasal canula and [employer] pump. Will continue wound care. Pt is being followed by GI and pulmonology. Will continue to monitor. [facility] Vit[facility] Vitals Vital Signs Date Time Temp Pulse Resp B/P (MAP) Pulse Ox O2 Delivery O2 Flow Rate FiO2 06/11/17 11:00 97.9 82 20 142/77 (98) 91 Nasal Cannula 2.0 97.9 Physical Exam General: Alert, Oriented X3, Cooperative, No acute distress Heart: Regular rate, Normal S1, Normal S2, No murmurs Lungs: Clear Abdomen: Soft, No hepatosplenomegaly Extremities: No clubbing, No cyanosis Skin: No rashes, No breakdown Labs LABS Laboratory Tests Test 06/10/17 16:25 06/10/17 21:03 06/11/17 04:40 06/11/17 07:15 Glucose (Fingerstick) 145 mg/dL (70-99) 132 mg/dL (70-99) 128 mg/dL (70-99) White Blood Count 5.9 x10^3/uL (4.0-11.0) Red Blood Count 2.87 x10^6/uL (3.50-5.40) Hemoglobin 7.3 g/dL (12.0-15.5) Hematocrit 22.5 % (36.0-47.0) Mean Corpuscular Volume 78 fL (79-100) Mean Corpuscular Hemoglobin 26 pg (25-35) Mean Corpuscular Hemoglobin Concent 33 g/dL (31-37) Red Cell Distribution Width 17.3 % (11.5-14.5) Platelet Count 191 x10^3/uL (140-400) Neutrophils (%) (Auto) 66 % (31-73) Lymphocytes (%) (Auto) 22 % (24-48) Monocytes (%) (Auto) 7 % (0-9) Eosinophils (%) (Auto) 5 % (0-3) Basophils (%) (Auto) 0 % (0-3) Neutrophils # (Auto) 3.9 x10^3uL (1.8-7.7) Lymphocytes # (Auto) 1.3 x10^3/uL (1.0-4.8) Monocytes # (Auto) 0.4 x10^3/uL (0.0-1.1) Eosinophils # (Auto) 0.3 x10^3/uL (0.0-0.7) Basophils # (Auto) 0.0 x10^3/uL (0.0-0.2) Sodium Level 141 mmol/L (136-145) Potassium Level 3.8 mmol/L (3.5-5.1) Chloride Level 104 mmol/L (98-107) Carbon Dioxide Level 29 mmol/L (21-32) Anion Gap 8 (6-14) Blood Urea Nitrogen 8 mg/dL (7-20) Creatinine 0.5 mg/dL (0.6-1.0) Estimated GFR (Cockcroft-Gault) 130.1 Glucose Level 138 mg/dL (70-99) Calcium Level 8.1 mg/dL (8.5-10.1) Phosphorus Level 3.4 mg/dL (2.6-4.7) Magnesium Level 1.9 mg/dL (1.8-2.4) Test 06/11/17 11:05 Glucose (Fingerstick) 118 mg/dL (70-99) Review of Systems Review of Systems Pt complains of fatigue and weakness Assessment and Plan Assessmemt and Plan Assessment: 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 Extubated 11/ HYpomagnesemia Hypothryoidism Acute post op pain on [employer] day 3 HTN, controlled HLD DM controlled Peripheral neuropathy Anxiety/depression NOS DVT hx Endometrial cancer Cholecystectomy Hiatal hernia repair with esophageal injury and peritonitis Umbilical hernia repair Bowel obstruction with mesh/complications of fistula Hysterectomy Plan: Continue TPN Continue wound care Continue O2 per nasal canula Continue [employer] pump Continue home meds PT/OT Recheck labs Discharge disposition pending- [facility] Will continue to monitor Problems: Comment Review of Relevant I have reviewed the following items radha (where applicable) has been applied. Labs Laboratory Tests Test 06/09/17 17:20 06/09/17 21:40 06/10/17 02:45 06/10/17 05:25 White Blood Count 5.4 x10^3/uL (4.0-11.0) 5.8 x10^3/uL (4.0-11.0) Red Blood Count 2.69 x10^6/uL (3.50-5.40) 2.88 x10^6/uL (3.50-5.40) Hemoglobin 6.6 g/dL (12.0-15.5) 7.2 g/dL (12.0-15.5) Hematocrit 20.6 % (36.0-47.0) 22.3 % (36.0-47.0) Mean Corpuscular Volume 77 fL (79-100) 77 fL (79-100) Mean Corpuscular Hemoglobin 25 pg (25-35) 25 pg (25-35) Mean Corpuscular Hemoglobin Concent 32 g/dL (31-37) 33 g/dL (31-37) Red Cell Distribution Width 16.0 % (11.5-14.5) 16.8 % (11.5-14.5) Platelet Count 169 x10^3/uL (140-400) 188 x10^3/uL (140-400) Neutrophils (%) (Auto) 72 % (31-73) 71 % (31-73) Lymphocytes (%) (Auto) 20 % (24-48) 19 % (24-48) Monocytes (%) (Auto) 3 % (0-9) 5 % (0-9) Eosinophils (%) (Auto) 5 % (0-3) 5 % (0-3) Basophils (%) (Auto) 1 % (0-3) 1 % (0-3) Neutrophils # (Auto) 3.8 x10^3uL (1.8-7.7) 4.1 x10^3uL (1.8-7.7) Lymphocytes # (Auto) 1.1 x10^3/uL (1.0-4.8) 1.1 x10^3/uL (1.0-4.8) Monocytes # (Auto) 0.2 x10^3/uL (0.0-1.1) 0.3 x10^3/uL (0.0-1.1) Eosinophils # (Auto) 0.2 x10^3/uL (0.0-0.7) 0.3 x10^3/uL (0.0-0.7) Basophils # (Auto) 0.0 x10^3/uL (0.0-0.2) 0.0 x10^3/uL (0.0-0.2) Sodium Level 140 mmol/L (136-145) 139 mmol/L (136-145) Potassium Level 3.4 mmol/L (3.5-5.1) 3.3 mmol/L (3.5-5.1) Chloride Level 103 mmol/L (98-107) 103 mmol/L (98-107) Carbon Dioxide Level 34 mmol/L (21-32) 32 mmol/L (21-32) Anion Gap 3 (6-14) 4 (6-14) Blood Urea Nitrogen 10 mg/dL (7-20) 8 mg/dL (7-20) Creatinine 0.5 mg/dL (0.6-1.0) 0.5 mg/dL (0.6-1.0) Estimated GFR (Cockcroft-Gault) 130.1 130.1 BUN/Creatinine Ratio 20 (6-20) Glucose Level 136 mg/dL (70-99) 156 mg/dL (70-99) Calcium Level 8.2 mg/dL (8.5-10.1) 8.3 mg/dL (8.5-10.1) Phosphorus Level 2.9 mg/dL (2.6-4.7) 3.1 mg/dL (2.6-4.7) Magnesium Level 1.6 mg/dL (1.8-2.4) 1.7 mg/dL (1.8-2.4) Total Bilirubin 0.5 mg/dL (0.2-1.0) Aspartate Amino Transf (AST/SGOT) 10 U/L (15-37) Alanine Aminotransferase (ALT/SGPT) < 6 U/L (14-59) Alkaline Phosphatase 66 U/L (46-116) Total Protein 6.3 g/dL (6.4-8.2) Albumin 2.0 g/dL (3.4-5.0) Albumin/Globulin Ratio 0.5 (1.0-1.7) Glucose (Fingerstick) 125 mg/dL (70-99) Clostridium difficile Toxin (PCR) Negative (Negative) Triglycerides Level 148 mg/dL (0-150) Test 06/10/17 07:54 06/10/17 11:12 06/10/17 16:25 06/10/17 21:03 Glucose (Fingerstick) 134 mg/dL (70-99) 123 mg/dL (70-99) 145 mg/dL (70-99) 132 mg/dL (70-99) Test 06/11/17 04:40 06/11/17 07:15 06/11/17 11:05 White Blood Count 5.9 x10^3/uL (4.0-11.0) Red Blood Count 2.87 x10^6/uL (3.50-5.40) Hemoglobin 7.3 g/dL (12.0-15.5) Hematocrit 22.5 % (36.0-47.0) Mean Corpuscular Volume 78 fL (79-100) Mean Corpuscular Hemoglobin 26 pg (25-35) Mean Corpuscular Hemoglobin Concent 33 g/dL (31-37) Red Cell Distribution Width 17.3 % (11.5-14.5) Platelet Count 191 x10^3/uL (140-400) Neutrophils (%) (Auto) 66 % (31-73) Lymphocytes (%) (Auto) 22 % (24-48) Monocytes (%) (Auto) 7 % (0-9) Eosinophils (%) (Auto) 5 % (0-3) Basophils (%) (Auto) 0 % (0-3) Neutrophils # (Auto) 3.9 x10^3uL (1.8-7.7) Lymphocytes # (Auto) 1.3 x10^3/uL (1.0-4.8) Monocytes # (Auto) 0.4 x10^3/uL (0.0-1.1) Eosinophils # (Auto) 0.3 x10^3/uL (0.0-0.7) Basophils # (Auto) 0.0 x10^3/uL (0.0-0.2) Sodium Level 141 mmol/L (136-145) Potassium Level 3.8 mmol/L (3.5-5.1) Chloride Level 104 mmol/L (98-107) Carbon Dioxide Level 29 mmol/L (21-32) Anion Gap 8 (6-14) Blood Urea Nitrogen 8 mg/dL (7-20) Creatinine 0.5 mg/dL (0.6-1.0) Estimated GFR (Cockcroft-Gault) 130.1 Glucose Level 138 mg/dL (70-99) Calcium Level 8.1 mg/dL (8.5-10.1) Phosphorus Level 3.4 mg/dL (2.6-4.7) Magnesium Level 1.9 mg/dL (1.8-2.4) Glucose (Fingerstick) 128 mg/dL (70-99) 118 mg/dL (70-99) Laboratory Tests Test 06/10/17 16:25 06/10/17 21:03 06/11/17 04:40 06/11/17 07:15 Glucose (Fingerstick) 145 mg/dL (70-99) 132 mg/dL (70-99) 128 mg/dL (70-99) White Blood Count 5.9 x10^3/uL (4.0-11.0) Red Blood Count 2.87 x10^6/uL (3.50-5.40) Hemoglobin 7.3 g/dL (12.0-15.5) Hematocrit 22.5 % (36.0-47.0) Mean Corpuscular Volume 78 fL (79-100) Mean Corpuscular Hemoglobin 26 pg (25-35) Mean Corpuscular Hemoglobin Concent 33 g/dL (31-37) Red Cell Distribution Width 17.3 % (11.5-14.5) Platelet Count 191 x10^3/uL (140-400) Neutrophils (%) (Auto) 66 % (31-73) Lymphocytes (%) (Auto) 22 % (24-48) Monocytes (%) (Auto) 7 % (0-9) Eosinophils (%) (Auto) 5 % (0-3) Basophils (%) (Auto) 0 % (0-3) Neutrophils # (Auto) 3.9 x10^3uL (1.8-7.7) Lymphocytes # (Auto) 1.3 x10^3/uL (1.0-4.8) Monocytes # (Auto) 0.4 x10^3/uL (0.0-1.1) Eosinophils # (Auto) 0.3 x10^3/uL (0.0-0.7) Basophils # (Auto) 0.0 x10^3/uL (0.0-0.2) Sodium Level 141 mmol/L (136-145) Potassium Level 3.8 mmol/L (3.5-5.1) Chloride Level 104 mmol/L (98-107) Carbon Dioxide Level 29 mmol/L (21-32) Anion Gap 8 (6-14) Blood Urea Nitrogen 8 mg/dL (7-20) Creatinine 0.5 mg/dL (0.6-1.0) Estimated GFR (Cockcroft-Gault) 130.1 Glucose Level 138 mg/dL (70-99) Calcium Level 8.1 mg/dL (8.5-10.1) Phosphorus Level 3.4 mg/dL (2.6-4.7) Magnesium Level 1.9 mg/dL (1.8-2.4) Test 06/11/17 11:05 Glucose (Fingerstick) 118 mg/dL (70-99) Medications Current Medications Ondansetron HCl (Zofran) 4 mg PRN Q6HRS PRN IV NAUSEA/VOMITING Last administered on 06/07/17 03:59; Start 06/06/17 at 07:00; Stop 06/07/17 at 06:59 ; Status DC Fentanyl Citrate (Fentanyl 2ml Vial) 25 mcg PRN Q5MIN PRN IV MILD PAIN; Start 06/06/17 at 07:00; Stop 06/07/17 at 06:59; Status DC Fentanyl Citrate (Fentanyl 2ml Vial) 50 mcg PRN Q5MIN PRN IV MODERATE PAIN Last administered on 06/06/17 16:11; Start 06/06/17 at 07:00; Stop 06/07/17 at 06:59; Status DC Morphine Sulfate 1 mg PRN Q10MIN PRN IV SEVERE PAIN Last administered on 16:51; Start 06/06/17 at 07:00; Stop 06/07/17 at 06:59; Status DC Ringer's Solution 1,000 ml @ 0 mls/hr Q0M IV Last administered on 06/06/17 07 :32; Start 06/06/17 at 07:00; Stop 06/06/17 at 18:59; Status DC Lidocaine HCl (Xylocaine-Mpf 1% Vial) 2 ml PRN 1X PRN ID PRIOR TO IV START; Start 06/06/17 at 07:00; Stop 06/07/17 at 06:59; Status DC Hydromorphone HCl (Dilaudid) 0.5 mg PRN Q10MIN PRN IV SEV PAIN, Second choice; Start 06/06/17 at 07:00; Stop 06/07/17 at 06:59; Status DC Prochlorperazine Edisylate (Compazine) 5 mg PACU PRN PRN IV NAUSEA, MRX1 Last administered on 06/06/17 18:12; Start 06/06/17 at 07:00; Stop 06/07/17 at 06:59 ; Status DC Cefoxitin Sodium 50 ml @ As Directed STK-MED ONCE IV ; Start 06/06/17 at 07:20; Stop 06/06/17 at 07:21; Status DC Rocuronium [place] (Zemuron) 50 mg STK-MED ONCE .ROUTE ; Start 06/06/17 at 07:38 ; Stop 06/06/17 at 07:39; Status DC Midazolam HCl (Versed) 2 mg STK-MED ONCE .ROUTE ; Start 06/06/17 at 07:38; Stop 06/06/17 at 07:39; Status DC Fentanyl Citrate (Fentanyl 5ml Vial) 250 mcg STK-MED ONCE .ROUTE ; Start at 07:38; Stop 06/06/17 at 07:39; Status DC Propofol 20 ml @ As Directed STK-MED ONCE IV ; Start 06/06/17 at 07:38; Stop at 07:39; Status DC Lidocaine HCl (Lidocaine Pf 2% Vial) 5 ml STK-MED ONCE .ROUTE ; Start 06/06/17 at 07:38; Stop 06/06/17 at 07:39; Status DC Levofloxacin/ Dextrose 150 ml @ As Directed STK-MED ONCE IV ; Start 06/06/17 at 08:05; Stop 06/06/17 at 08:06; Status DC Levofloxacin/ Dextrose 150 ml @ 0 mls/hr 1X ONCE IV Last administered on 08:33; Start 06/06/17 at 08:15; Stop 06/06/17 at 08:16; Status DC Sevoflurane (Ultane) 90 ml STK-MED ONCE IH ; Start 06/06/17 at 09:04; Stop 06/06 at 09:05; Status DC Cellulose 1 each STK-MED ONCE .ROUTE ; Start 06/06/17 at 09:06; Stop 06/06/17 at 09:07; Status DC Cellulose 1 each STK-MED ONCE TP Last administered on 06/06/17 09:07; Start 06/06/17 at 09:07; Stop 06/06/17 at 09:10; Status DC Rocuronium [place] (Zemuron) 100 mg STK-MED ONCE .ROUTE ; Start 06/06/17 at 09: 08; Stop 06/06/17 at 09:09; Status DC Fentanyl Citrate (Fentanyl 5ml Vial) 250 mcg STK-MED ONCE .ROUTE ; Start at 12:38; Stop 06/06/17 at 12:39; Status DC Albumin Human 500 ml @ As Directed STK-MED ONCE IV ; Start 06/06/17 at 13:36; Stop 06/06/17 at 13:37; Status DC Neostigmine Methylsulfate (Bloxiverz) 10 mg STK-MED ONCE .ROUTE ; Start at 13:57; Stop 06/06/17 at 13:58; Status DC Glycopyrrolate (Robinul) 1 mg STK-MED ONCE .ROUTE ; Start 06/06/17 at 13:57; Stop 06/06/17 at 13:58; Status DC Enoxaparin Sodium (Lovenox 40mg Syringe) 40 mg Q24H SQ Last administered on 15:28; Start 06/06/17 at 15:00 Sodium Chloride (Normal Saline Flush) 3 ml QSHIFT PRN IV AFTER MEDS AND BLOOD DRAWS; Start 06/06/17 at 14:45 Ringer's Solution 1,000 ml @ 50 mls/hr Q20H IV Last administered on 09:40; Start 06/06/17 at 14:41 Naloxone HCl (Narcan) 0.4 mg PRN Q2MIN PRN IV SEE INSTRUCTIONS; Start 06/06/17 at 14:45; Stop 06/07/17 at 13:45; Status DC Sodium Chloride 1,000 ml @ 25 mls/hr Q24H IV ; Start 06/06/17 at 14:41; Stop 06/07/17 at 13:44; Status DC Morphine Sulfate 30 ml @ 0 mls/hr CONT PRN PRN IV PROTOCOL Last administered on 06/06/17 16:15; Start 06/06/17 at 14:45; Stop 06/08/17 at 09:57; Status DC Levofloxacin/ Dextrose 150 ml @ 100 mls/hr Q24H IV Last administered on 08:14; Start 06/07/17 at 08:00 Midazolam HCl (Versed) 2 mg PRN Q1HR PRN IV SEDATION PT ON VENT; Start at 19:00; Stop 06/07/17 at 13:44; Status DC Propofol 100 ml @ 0 mls/hr CONT PRN IV SEE I/O RECORD Last administered on 06/07 03:17; Start 06/06/17 at 19:00; Stop 06/09/17 at 09:50; Status DC Chlorhexidine Gluconate (Peridex) 15 ml BID SWSP Last administered on 08:32; Start 06/06/17 at 21:00; Stop 06/07/17 at 13:44; Status DC Naloxone HCl (Narcan) 0.4 mg PRN Q2MIN PRN IV SEE INSTRUCTIONS; Start 06/07/17 at 11:30; Stop 06/10/17 at 02:07; Status DC Sodium Chloride 1,000 ml @ 25 mls/hr Q24H IV Last administered on 06/11/17 09:39; Start 06/07/17 at 11:18 Hydromorphone HCl 30 ml @ 0 mls/hr CONT PRN PRN IV PROTOCOL Last administered on 06/09/17 09:54; Start 06/07/17 at 11:30; Stop 06/09/17 at 22:32; Status DC Alteplase, Recombinant (Cathflo) 2 mg 1X ONCE INT CAT Last administered on 14:09; Start 06/07/17 at 12:30; Stop 06/07/17 at 12:31; Status DC Lorazepam (Ativan) 0.5 mg PRN Q6HRS PRN IV ANXIETY / AGITATION Last administered on 06/11/17 04:51; Start 06/07/17 at 17:45 Prochlorperazine Edisylate (Compazine) 10 mg PRN Q6HRS PRN IV NAUSEA/VOMITING Last administered on 06/11/17 04:55; Start 06/07/17 at 22:45 Info 1 each PRN DAILY PRN MC SEE COMMENTS Last administered on 06/11/17 12:02 ; Start 06/08/17 at 13:30 Sodium Chloride 90 meq/Potassium Chloride 50 meq/ Potassium Phosphate 13.6 mmol/ Magnesium Sulfate 10 meq/ Calcium Gluconate 10 meq/ Multivitamins 10 ml/Chromium / Copper/Manganese/ Seleni/Zn 1 ml/ Total Parenteral Nutrition/Amino Acids/ Dextrose/ Fat Emulsion Intravenous 1,512 ml @ 63 mls/hr TPN CONT IV Last administered on 06/08/17 22:56; Start 06/08/17 at 22:00; Stop 06/09/17 at 21: 59; Status DC Magnesium Sulfate/ Dextrose 50 ml @ 25 mls/hr 1X ONCE IV Last administered on 06/08/17 14:45; Start 06/08/17 at 14:00; Stop 06/08/17 at 15:59; Status DC Alteplase, Recombinant (Cathflo) 2 mg 1X ONCE INT CAT Last administered on 10:00; Start 06/09/17 at 08:45; Stop 06/09/17 at 08:46; Status DC Famotidine (Pepcid) 20 mg BID IVP Last administered on 06/11/17 09:38; Start 06/09/17 at 10:30 Fentanyl (Duragesic 25mcg/ Hr Patch) 1 patch Q3DAYS TD ; Start 06/09/17 at 10: 30; Stop 06/09/17 at 12:29; Status DC Levothyroxine Sodium 50 mcg/ Sodium Chloride 5 ml @ 100 mls/hr DAILY IVP Last administered on 06/11/17 09:39; Start 06/09/17 at 10:30 Diphenhydramine HCl (Benadryl) 25 mg PRN QHS PRN IVP sleep Last administered on 06/11/17 00:54; Start 06/09/17 at 10:00 Sodium Chloride 90 meq/Potassium Chloride 50 meq/ Potassium Phosphate 20.4 mmol/ Magnesium Sulfate 20 meq/ Calcium Gluconate 10 meq/ Multivitamins 10 ml/Chromium / Copper/Manganese/ Seleni/Zn 1 ml/ Total Parenteral Nutrition/Amino Acids/ Dextrose/ Fat Emulsion Intravenous 1,512 ml @ 63 mls/hr TPN CONT IV Last administered on 06/09/17 23:28; Start 06/09/17 at 22:00; Stop 06/10/17 at 21 :59; Status DC Hydromorphone HCl (Dilaudid) 1 mg PRN Q3HRS PRN IV SEVERE PAIN Last administered on 06/10/17 00:16; Start 06/09/17 at 22:45; Stop 06/10/17 at 02 :07; Status DC Ketorolac Tromethamine (Toradol) 15 mg 1X ONCE IV ; Start 06/10/17 at 02:30; Stop 06/10/17 at 02:31; Status DC Naloxone HCl (Narcan) 0.4 mg PRN Q2MIN PRN IV SEE INSTRUCTIONS; Start at 02:00 Hydromorphone HCl 30 ml @ 0 mls/hr CONT PRN PRN IV PROTOCOL Last administered on 06/11/17 01:27; Start 06/10/17 at 02:00 Potassium Chloride 50 ml @ 50 mls/hr Q1H IV Last administered on 06/10/17 14: 17; Start 06/10/17 at 13:00; Stop 06/10/17 at 14:59; Status DC Sodium Chloride 90 meq/Potassium Chloride 70 meq/ Potassium Phosphate 20.4 mmol/ Magnesium Sulfate 20 meq/ Calcium Gluconate 10 meq/ Multivitamins 10 ml/Chromium / Copper/Manganese/ Seleni/Zn 1 ml/ Total Parenteral Nutrition/Amino Acids/ Dextrose/ Fat Emulsion Intravenous 1,512 ml @ 63 mls/hr TPN CONT IV Last administered on 06/10/17 22:05; Start 06/10/17 at 22:00; Stop 06/11/17 at 21 :59 Magnesium Sulfate/ Dextrose 100 ml @ 100 mls/hr 1X ONCE IV Last administered on 06/10/17t 15:27; Start 06/10/17 at 13:30; Stop 06/10/17 at 14:29; Status DC Throat Lozenges (Chloraseptic) 1 spray PRN Q2HR PRN PO SORE THROAT Last administered on 06/11/17 00:54; Start 06/10/17 at 22:45 Sodium Chloride 90 meq/Potassium Chloride 70 meq/ Potassium Phosphate 20.4 mmol/ Magnesium Sulfate 20 meq/ Calcium Gluconate 10 meq/ Multivitamins 10 ml/Chromium / Copper/Manganese/ Seleni/Zn 1 ml/ Total Parenteral Nutrition/Amino Acids/ Dextrose/ Fat Emulsion Intravenous 1,512 ml @ 63 mls/hr TPN CONT IV ; Start 06/11/17 at 22:00; Stop 06/12/17 at 21:59 Active Scripts Active Reported Acetaminophen 500 Mg Tablet 650 Mg PO EVERY 6 HRS PRN Diphenhydramine Hcl 50 Mg Capsule 1 Cap PO EVERY 4 HRS PRN Lorazepam 0.5 Mg Tablet 1 Tab PO EVERY 6 HRS PRN Trazodone Hcl 300 Mg Tablet 400 Mg PO HS Heparin 10 Unit/10 Ml (1/Ml) (Heparin Sodium,Porcine/Pf) 1 Unit/1 Ml Disp.syrin 5,000 Unit SUBCUT/PO EVERY 8 HRS Promethazine Hcl 6.25 Mg/5 Ml Syrup 5 Ml IV TID PRN PRN Levothyroxine Sodium 100 Mcg Tablet 100 Mcg IV HS Escitalopram Oxalate 5 Mg Tablet 20 Mg PO DAILY Pantoprazole Sodium 40 Mg Tablet.dr 1 Tab PO IV Tpn Electrolytes Ii Iv Soln (Sodium/K+/Mag/Ca/Chlor/Acetate) 20 Ml Vial 20 Ml IV FENTANYL 25mcg/hr (Fentanyl) 1 Each Patch.td72 1 Patch TP Q3DAYS Hydromorphone Hcl 4 Mg Tablet 1 Tab IV QIDPRN PRN Hydromorphone Hcl 4 Mg Tablet 2 Mg PO Vitals/I & O Vital Sign - Last 24 Hours 06/10/17 06/10/17 06/10/17 06/10/17 15:00 19:15 20:00 22:48 Temp 98.6 97.9 98.1 98.6 97.9 98.1 Pulse 86 76 80 Resp 20 18 18 B/P (MAP) 165/69 (101) 123/63 (83) 126/78 (94) Pulse Ox 92 96 98 O2 Delivery Nasal Cannula Room Air Nasal Cannula Nasal Cannula O2 Flow Rate 2.0 2.0 2.0 06/10/17 06/11/17 06/11/17 06/11/17 23:59 01:27 01:57 03:19 Temp 98.1 97.5 98.1 97.5 Pulse 80 99 Resp 20 20 18 B/P (MAP) 126/78 (94) 144/97 (113) Pulse Ox 98 98 98 94 O2 Delivery Nasal Cannula Nasal Cannula Nasal Cannula Nasal Cannula O2 Flow Rate 2.0 2.0 2.0 2.0 06/11/17 06/11/17 06/11/17 07:00 08:00 11:00 Temp 98.1 97.9 98.1 97.9 Pulse 101 82 Resp 22 20 B/P (MAP) 162/96 (118) 142/77 (98) Pulse Ox 93 91 O2 Delivery Nasal Cannula Nasal Cannula Nasal Cannula O2 Flow Rate 2.0 2.0 2.0 Intake and Output 06/11/17 06/11/17 06/12/17 15:00 23:00 07:00 Output Total 100 ml Balance -100 ml Nutrition Consultation Dietary Evaluation: Recommendations by RD: PPN/TPN Comments: continue TPN: 250 g dextrose, 60 g AA, 40 g lipid Expected Outcomes/Goals: Initiation of nutrition within 24 - 48 hrs - met continue to meet > 65% nutrition needs via TPN Interpretation of weight loss: >7.5% in 3 months Malnutrition Findings: Food and Nutrition Intake (Mod: <75% est energy req 7days Weight Status: Morbidly Obese AMANDA HARDING III DO Jun 11, 2017 14:34
[2017-06-11 15:00] VITALS: BP 163/73
[2017-06-11] MEDS: ENOXAPARIN 40 MG/0.4 ML SYRINGE. SQ SCH (15:52)
[2017-06-11 19:00] VITALS: BP 163/73
[2017-06-11] MEDS ORDERED: TOTAL PARENTERAL NUTRITION IV SCH ×10 (22:00)
[2017-06-11] MEDS ORDERED: [UNRECOGNIZED DRUG - OTHER] IV SCH ×10 (22:00)
[2017-06-11] MEDS ORDERED: AMINO ACIDS IV SCH ×10 (22:00)
[2017-06-11] MEDS ORDERED: DEXTROSE 70% IV SCH ×10 (22:00)
[2017-06-11 23:00] VITALS: BP 130/74
[2017-06-12] MEDS: diphenhydrAMINE 50 MG/ML VIAL IVP PRN ×2 (01:53→15:00)
[2017-06-12 03:00] VITALS: BP 132/75
[2017-06-12 04:52] LABS: BASO % 0 % (0-3); EOS % 4 % (0-3); HEMATOCRIT 22.3 % (36.0-47.0); HEMOGLOBIN 7.2 g/dL (12.0-15.5); LYMPH # 1.4 x10^3/uL (1.0-4.8); LYMPH % 23 % (24-48); MEAN CORPUSCULAR HEMOGLOBIN 25 pg (25-35); MEAN CORPUSCULAR HGB CONC 32 g/dL (31-37); MEAN CORPUSCULAR VOLUME 78 fL (79-100); MONO % 8 % (0-9); NEUT % 65 % (31-73); PLATELET COUNT 211 x10^3/uL (140-400); RED BLOOD COUNT 2.86 x10^6/uL (3.50-5.40); RED CELL DISTRIBUTION WIDTH 16.9 % (11.5-14.5); WHITE BLOOD COUNT 6.1 x10^3/uL (4.0-11.0)
[2017-06-12 05:17] LABS: CALCIUM 8.2 mg/dL (8.5-10.1); CREATININE 0.5 mg/dL (0.6-1.0); GFR 130.1; POTASSIUM 3.8 mmol/L (3.5-5.1)
[2017-06-12 05:25] LABS: MAGNESIUM 1.9 mg/dL (1.8-2.4); PHOSPHORUS 4.9 mg/dL (2.6-4.7)
[2017-06-12 07:00] VITALS: BP 130/61
--- NOTE | 2017-06-12 08:43 | PDOC ---
PULMONARY PROGRESS NOTES Subjective NO INCREASE SOA Vitals Vital Signs Date Time Temp Pulse Resp B/P (MAP) Pulse Ox O2 Delivery O2 Flow Rate FiO2 06/12/17 07:00 98.6 84 20 130/61 (84) 98 Nasal Cannula 2.0 98.6 General: Alert, No acute distress Lungs: Clear Cardiovascular: S1, S2 Abdomen: Soft, Other (OBESE) Neuro Exam: Alert Extremities: No Edema Skin: Warm Labs Laboratory Tests Test 06/10/17 11:12 06/10/17 16:25 06/10/17 21:03 06/11/17 04:40 Glucose (Fingerstick) 123 mg/dL (70-99) 145 mg/dL (70-99) 132 mg/dL (70-99) White Blood Count 5.9 x10^3/uL (4.0-11.0) Red Blood Count 2.87 x10^6/uL (3.50-5.40) Hemoglobin 7.3 g/dL (12.0-15.5) Hematocrit 22.5 % (36.0-47.0) Mean Corpuscular Volume 78 fL (79-100) Mean Corpuscular Hemoglobin 26 pg (25-35) Mean Corpuscular Hemoglobin Concent 33 g/dL (31-37) Red Cell Distribution Width 17.3 % (11.5-14.5) Platelet Count 191 x10^3/uL (140-400) Neutrophils (%) (Auto) 66 % (31-73) Lymphocytes (%) (Auto) 22 % (24-48) Monocytes (%) (Auto) 7 % (0-9) Eosinophils (%) (Auto) 5 % (0-3) Basophils (%) (Auto) 0 % (0-3) Neutrophils # (Auto) 3.9 x10^3uL (1.8-7.7) Lymphocytes # (Auto) 1.3 x10^3/uL (1.0-4.8) Monocytes # (Auto) 0.4 x10^3/uL (0.0-1.1) Eosinophils # (Auto) 0.3 x10^3/uL (0.0-0.7) Basophils # (Auto) 0.0 x10^3/uL (0.0-0.2) Sodium Level 141 mmol/L (136-145) Potassium Level 3.8 mmol/L (3.5-5.1) Chloride Level 104 mmol/L (98-107) Carbon Dioxide Level 29 mmol/L (21-32) Anion Gap 8 (6-14) Blood Urea Nitrogen 8 mg/dL (7-20) Creatinine 0.5 mg/dL (0.6-1.0) Estimated GFR (Cockcroft-Gault) 130.1 Glucose Level 138 mg/dL (70-99) Calcium Level 8.1 mg/dL (8.5-10.1) Phosphorus Level 3.4 mg/dL (2.6-4.7) Magnesium Level 1.9 mg/dL (1.8-2.4) Test 06/11/17 07:15 06/11/17 11:05 06/11/17 16:05 06/11/17 21:28 Glucose (Fingerstick) 128 mg/dL (70-99) 118 mg/dL (70-99) 124 mg/dL (70-99) 132 mg/dL (70-99) Test 06/12/17 04:01 06/12/17 07:57 White Blood Count 6.1 x10^3/uL (4.0-11.0) Red Blood Count 2.86 x10^6/uL (3.50-5.40) Hemoglobin 7.2 g/dL (12.0-15.5) Hematocrit 22.3 % (36.0-47.0) Mean Corpuscular Volume 78 fL (79-100) Mean Corpuscular Hemoglobin 25 pg (25-35) Mean Corpuscular Hemoglobin Concent 32 g/dL (31-37) Red Cell Distribution Width 16.9 % (11.5-14.5) Platelet Count 211 x10^3/uL (140-400) Neutrophils (%) (Auto) 65 % (31-73) Lymphocytes (%) (Auto) 23 % (24-48) Monocytes (%) (Auto) 8 % (0-9) Eosinophils (%) (Auto) 4 % (0-3) Basophils (%) (Auto) 0 % (0-3) Neutrophils # (Auto) 3.9 x10^3uL (1.8-7.7) Lymphocytes # (Auto) 1.4 x10^3/uL (1.0-4.8) Monocytes # (Auto) 0.5 x10^3/uL (0.0-1.1) Eosinophils # (Auto) 0.3 x10^3/uL (0.0-0.7) Basophils # (Auto) 0.0 x10^3/uL (0.0-0.2) Sodium Level 141 mmol/L (136-145) Potassium Level 3.8 mmol/L (3.5-5.1) Chloride Level 105 mmol/L (98-107) Carbon Dioxide Level 28 mmol/L (21-32) Anion Gap 8 (6-14) Blood Urea Nitrogen 9 mg/dL (7-20) Creatinine 0.5 mg/dL (0.6-1.0) Estimated GFR (Cockcroft-Gault) 130.1 Glucose Level 127 mg/dL (70-99) Calcium Level 8.2 mg/dL (8.5-10.1) Phosphorus Level 4.9 mg/dL (2.6-4.7) Magnesium Level 1.9 mg/dL (1.8-2.4) Glucose (Fingerstick) 136 mg/dL (70-99) Laboratory Tests Test 06/11/17 11:05 06/11/17 16:05 06/11/17 21:28 06/12/17 04:01 Glucose (Fingerstick) 118 mg/dL (70-99) 124 mg/dL (70-99) 132 mg/dL (70-99) White Blood Count 6.1 x10^3/uL (4.0-11.0) Red Blood Count 2.86 x10^6/uL (3.50-5.40) Hemoglobin 7.2 g/dL (12.0-15.5) Hematocrit 22.3 % (36.0-47.0) Mean Corpuscular Volume 78 fL (79-100) Mean Corpuscular Hemoglobin 25 pg (25-35) Mean Corpuscular Hemoglobin Concent 32 g/dL (31-37) Red Cell Distribution Width 16.9 % (11.5-14.5) Platelet Count 211 x10^3/uL (140-400) Neutrophils (%) (Auto) 65 % (31-73) Lymphocytes (%) (Auto) 23 % (24-48) Monocytes (%) (Auto) 8 % (0-9) Eosinophils (%) (Auto) 4 % (0-3) Basophils (%) (Auto) 0 % (0-3) Neutrophils # (Auto) 3.9 x10^3uL (1.8-7.7) Lymphocytes # (Auto) 1.4 x10^3/uL (1.0-4.8) Monocytes # (Auto) 0.5 x10^3/uL (0.0-1.1) Eosinophils # (Auto) 0.3 x10^3/uL (0.0-0.7) Basophils # (Auto) 0.0 x10^3/uL (0.0-0.2) Sodium Level 141 mmol/L (136-145) Potassium Level 3.8 mmol/L (3.5-5.1) Chloride Level 105 mmol/L (98-107) Carbon Dioxide Level 28 mmol/L (21-32) Anion Gap 8 (6-14) Blood Urea Nitrogen 9 mg/dL (7-20) Creatinine 0.5 mg/dL (0.6-1.0) Estimated GFR (Cockcroft-Gault) 130.1 Glucose Level 127 mg/dL (70-99) Calcium Level 8.2 mg/dL (8.5-10.1) Phosphorus Level 4.9 mg/dL (2.6-4.7) Magnesium Level 1.9 mg/dL (1.8-2.4) Test 06/12/17 07:57 Glucose (Fingerstick) 136 mg/dL (70-99) Medications Active Scripts Medications Dose Route/Sig Max Daily Dose Days Date Category Acetaminophen 500 Mg Tablet 650 Mg PO EVERY 6 HRS PRN 06/06/17 Reported Diphenhydramine Hcl 50 Mg Capsule 1 Cap PO EVERY 4 HRS PRN 06/06/17 Reported Lorazepam 0.5 Mg Tablet 1 Tab PO EVERY 6 HRS PRN 06/06/17 Reported Trazodone Hcl 300 Mg Tablet 400 Mg PO HS 06/06/17 Reported Heparin 10 Unit/10 Ml (1/Ml) (Heparin Sodium,Porcine/Pf) 1 Unit/1 Ml Disp.syrin 5,000 Unit SUBCUT/PO EVERY 8 HRS 06/06/17 Reported Promethazine Hcl 6.25 Mg/5 Ml Syrup 5 Ml IV TID PRN PRN 06/06/17 Reported Levothyroxine Sodium 100 Mcg Tablet 100 Mcg IV HS 06/06/17 Reported Escitalopram Oxalate 5 Mg Tablet 20 Mg PO DAILY 06/06/17 Reported Pantoprazole Sodium 40 Mg Tablet.dr 1 Tab PO IV 06/06/17 Reported Tpn Electrolytes Ii Iv Soln (Sodium/K+/Mag/Ca/Chlor/Acetate) 20 Ml Vial 20 Ml IV 06/06/17 Reported FENTANYL 25mcg/hr (Fentanyl) 1 Each Patch.td72 1 Patch TP Q3DAYS 06/06/17 Reported Hydromorphone Hcl 4 Mg Tablet 1 Tab IV QIDPRN PRN 06/06/17 Reported Hydromorphone Hcl 4 Mg Tablet 2 Mg PO 06/06/17 Reported Impression . 1. Acute respiratory failure, expected status post extensive surgery to the abdomen in a morbid obese individual with multiple comorbidities.(Exploratory laparotomy, extensive lysis of adhesions, Excision of enterocutaneous fistula, ileocolic resection, liver laceration repair, ventral incisional hernia repair, debridement of abdominal wall wound) 2. Hypertension. 3. Diabetes. 4. Peripheral neuropathy. 5. Anxiety and depression. 6. History of deep venous thrombosis. 7. Endometrial cancer. 8. Prior history of esophageal injury with peritonitis. Plan . ON TPN ADVANCE DIET PER SURGERY EXTUBATED 06/08 RESP STATUS COMPENSATED 02 FOR NOW 6 MIN WALK PRIOR TO D/C POST OP CARE FOLLOW GI INPUT DVT /GI PROPH KARMEN JOHNSON MD Jun 12, 2017 08:43
[2017-06-12] MEDS: FAMOTIDINE 20 MG/2 ML VIAL IVP SCH ×2 (08:50→21:00)
[2017-06-12] MEDS: IV NORMAL SALINE 1000ML BAG 1,000 ML IV SCH (08:51)
[2017-06-12] MEDS: LEVOTHYROXINE SODIUM 50 MCG in IV NORMAL SALINE 50ML 5 ML IVP SCH (08:51)
[2017-06-12] MEDS: IV RINGERS,LACTATED 1000ML 1,000 ML IV SCH (08:52)
[2017-06-12 11:00] VITALS: BP 112/70
[2017-06-12] MEDS ORDERED: ALBUTEROL SULFATE 2.5 MG/3 ML NEBU. NEB PRN (11:30)
[2017-06-12] MEDS ORDERED: fentaNYL 100MCG/HR PATCH 1 PATCH PATCH TD SCH (12:00)
[2017-06-12] MEDS ORDERED: fentaNYL 25MCG/HR PATCH 1 PATCH PATCH.TD72 TD SCH (12:00)
[2017-06-12] MEDS: TPN PER PHARMACY MC PRN (12:35)
--- NOTE | 2017-06-12 14:08 | PDOC ---
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 Extubated HYpomagnesemia Hypothryoidism Acute post op pain on [employer] day 3 HTN, controlled HLD DM controlled Peripheral neuropathy Anxiety/depression NOS DVT hx Endometrial cancer Cholecystectomy Hiatal hernia repair with esophageal injury and peritonitis Umbilical hernia repair Bowel obstruction with mesh/complications of fistula Hysterectomy chronic abd pain with fentanyl patch 125mcg plan: fu with sx, pulm sx wound care clear liquid diet for now, fu with sx for advance diet dc Ringers on TPN add albuterol prn cont [employer] for pain control, on fentanyl 125mcg patchy dvt ppx History of Present Illness History of Present Illness Pt is a pleasant 52 year old female who presented with an enterocutaneous fistula. She is out of the ICU and was seen today at bedside. She was resting comfortably in NAD. Pt is on TPN and abx. Her nichols catheter has been removed. Continue O2 per nasal canula and [employer] pump. Will continue wound care. Pt is being followed by GI and pulmonology. Will continue to monitor. Discharge disposition pending- [facility]. ROS: NO FEVER, chills, sob or chest pain on NC 2 L, some exertional sob required [employer] a lot when ambulate has flatus, BM post op clear liquid 06/11 Vitals Vitals Vital Signs Date Time Temp Pulse Resp B/P (MAP) Pulse Ox O2 Delivery O2 Flow Rate FiO2 06/12/17 12:06 98 Nasal Cannula 2.0 06/12/17 11:00 98.3 89 20 112/70 (84) 98.3 Physical Exam General: Alert, Oriented X3, Cooperative, No acute distress Heart: Regular rate, Normal S1, Normal S2, No murmurs Lungs: Clear Abdomen: Soft, No hepatosplenomegaly, Other (decreased bs. sx wound has some sangeous discharege with susan drain) Extremities: No clubbing, No cyanosis Skin: No rashes, No breakdown Labs LABS Laboratory Tests Test 06/11/17 16:05 06/11/17 21:28 06/12/17 04:01 06/12/17 07:57 Glucose (Fingerstick) 124 mg/dL (70-99) 132 mg/dL (70-99) 136 mg/dL (70-99) White Blood Count 6.1 x10^3/uL (4.0-11.0) Red Blood Count 2.86 x10^6/uL (3.50-5.40) Hemoglobin 7.2 g/dL (12.0-15.5) Hematocrit 22.3 % (36.0-47.0) Mean Corpuscular Volume 78 fL (79-100) Mean Corpuscular Hemoglobin 25 pg (25-35) Mean Corpuscular Hemoglobin Concent 32 g/dL (31-37) Red Cell Distribution Width 16.9 % (11.5-14.5) Platelet Count 211 x10^3/uL (140-400) Neutrophils (%) (Auto) 65 % (31-73) Lymphocytes (%) (Auto) 23 % (24-48) Monocytes (%) (Auto) 8 % (0-9) Eosinophils (%) (Auto) 4 % (0-3) Basophils (%) (Auto) 0 % (0-3) Neutrophils # (Auto) 3.9 x10^3uL (1.8-7.7) Lymphocytes # (Auto) 1.4 x10^3/uL (1.0-4.8) Monocytes # (Auto) 0.5 x10^3/uL (0.0-1.1) Eosinophils # (Auto) 0.3 x10^3/uL (0.0-0.7) Basophils # (Auto) 0.0 x10^3/uL (0.0-0.2) Sodium Level 141 mmol/L (136-145) Potassium Level 3.8 mmol/L (3.5-5.1) Chloride Level 105 mmol/L (98-107) Carbon Dioxide Level 28 mmol/L (21-32) Anion Gap 8 (6-14) Blood Urea Nitrogen 9 mg/dL (7-20) Creatinine 0.5 mg/dL (0.6-1.0) Estimated GFR (Cockcroft-Gault) 130.1 Glucose Level 127 mg/dL (70-99) Calcium Level 8.2 mg/dL (8.5-10.1) Phosphorus Level 4.9 mg/dL (2.6-4.7) Magnesium Level 1.9 mg/dL (1.8-2.4) Test 06/12/17 11:33 Glucose (Fingerstick) 125 mg/dL (70-99) Comment Review of Relevant I have reviewed the following items radha (where applicable) has been applied. Labs Laboratory Tests Test 06/10/17 16:25 06/10/17 21:03 06/11/17 04:40 06/11/17 07:15 Glucose (Fingerstick) 145 mg/dL (70-99) 132 mg/dL (70-99) 128 mg/dL (70-99) White Blood Count 5.9 x10^3/uL (4.0-11.0) Red Blood Count 2.87 x10^6/uL (3.50-5.40) Hemoglobin 7.3 g/dL (12.0-15.5) Hematocrit 22.5 % (36.0-47.0) Mean Corpuscular Volume 78 fL (79-100) Mean Corpuscular Hemoglobin 26 pg (25-35) Mean Corpuscular Hemoglobin Concent 33 g/dL (31-37) Red Cell Distribution Width 17.3 % (11.5-14.5) Platelet Count 191 x10^3/uL (140-400) Neutrophils (%) (Auto) 66 % (31-73) Lymphocytes (%) (Auto) 22 % (24-48) Monocytes (%) (Auto) 7 % (0-9) Eosinophils (%) (Auto) 5 % (0-3) Basophils (%) (Auto) 0 % (0-3) Neutrophils # (Auto) 3.9 x10^3uL (1.8-7.7) Lymphocytes # (Auto) 1.3 x10^3/uL (1.0-4.8) Monocytes # (Auto) 0.4 x10^3/uL (0.0-1.1) Eosinophils # (Auto) 0.3 x10^3/uL (0.0-0.7) Basophils # (Auto) 0.0 x10^3/uL (0.0-0.2) Sodium Level 141 mmol/L (136-145) Potassium Level 3.8 mmol/L (3.5-5.1) Chloride Level 104 mmol/L (98-107) Carbon Dioxide Level 29 mmol/L (21-32) Anion Gap 8 (6-14) Blood Urea Nitrogen 8 mg/dL (7-20) Creatinine 0.5 mg/dL (0.6-1.0) Estimated GFR (Cockcroft-Gault) 130.1 Glucose Level 138 mg/dL (70-99) Calcium Level 8.1 mg/dL (8.5-10.1) Phosphorus Level 3.4 mg/dL (2.6-4.7) Magnesium Level 1.9 mg/dL (1.8-2.4) Test 06/11/17 11:05 06/11/17 16:05 06/11/17 21:28 06/12/17 04:01 Glucose (Fingerstick) 118 mg/dL (70-99) 124 mg/dL (70-99) 132 mg/dL (70-99) White Blood Count 6.1 x10^3/uL (4.0-11.0) Red Blood Count 2.86 x10^6/uL (3.50-5.40) Hemoglobin 7.2 g/dL (12.0-15.5) Hematocrit 22.3 % (36.0-47.0) Mean Corpuscular Volume 78 fL (79-100) Mean Corpuscular Hemoglobin 25 pg (25-35) Mean Corpuscular Hemoglobin Concent 32 g/dL (31-37) Red Cell Distribution Width 16.9 % (11.5-14.5) Platelet Count 211 x10^3/uL (140-400) Neutrophils (%) (Auto) 65 % (31-73) Lymphocytes (%) (Auto) 23 % (24-48) Monocytes (%) (Auto) 8 % (0-9) Eosinophils (%) (Auto) 4 % (0-3) Basophils (%) (Auto) 0 % (0-3) Neutrophils # (Auto) 3.9 x10^3uL (1.8-7.7) Lymphocytes # (Auto) 1.4 x10^3/uL (1.0-4.8) Monocytes # (Auto) 0.5 x10^3/uL (0.0-1.1) Eosinophils # (Auto) 0.3 x10^3/uL (0.0-0.7) Basophils # (Auto) 0.0 x10^3/uL (0.0-0.2) Sodium Level 141 mmol/L (136-145) Potassium Level 3.8 mmol/L (3.5-5.1) Chloride Level 105 mmol/L (98-107) Carbon Dioxide Level 28 mmol/L (21-32) Anion Gap 8 (6-14) Blood Urea Nitrogen 9 mg/dL (7-20) Creatinine 0.5 mg/dL (0.6-1.0) Estimated GFR (Cockcroft-Gault) 130.1 Glucose Level 127 mg/dL (70-99) Calcium Level 8.2 mg/dL (8.5-10.1) Phosphorus Level 4.9 mg/dL (2.6-4.7) Magnesium Level 1.9 mg/dL (1.8-2.4) Test 06/12/17 07:57 06/12/17 11:33 Glucose (Fingerstick) 136 mg/dL (70-99) 125 mg/dL (70-99) Laboratory Tests Test 06/11/17 16:05 06/11/17 21:28 06/12/17 04:01 06/12/17 07:57 Glucose (Fingerstick) 124 mg/dL (70-99) 132 mg/dL (70-99) 136 mg/dL (70-99) White Blood Count 6.1 x10^3/uL (4.0-11.0) Red Blood Count 2.86 x10^6/uL (3.50-5.40) Hemoglobin 7.2 g/dL (12.0-15.5) Hematocrit 22.3 % (36.0-47.0) Mean Corpuscular Volume 78 fL (79-100) Mean Corpuscular Hemoglobin 25 pg (25-35) Mean Corpuscular Hemoglobin Concent 32 g/dL (31-37) Red Cell Distribution Width 16.9 % (11.5-14.5) Platelet Count 211 x10^3/uL (140-400) Neutrophils (%) (Auto) 65 % (31-73) Lymphocytes (%) (Auto) 23 % (24-48) Monocytes (%) (Auto) 8 % (0-9) Eosinophils (%) (Auto) 4 % (0-3) Basophils (%) (Auto) 0 % (0-3) Neutrophils # (Auto) 3.9 x10^3uL (1.8-7.7) Lymphocytes # (Auto) 1.4 x10^3/uL (1.0-4.8) Monocytes # (Auto) 0.5 x10^3/uL (0.0-1.1) Eosinophils # (Auto) 0.3 x10^3/uL (0.0-0.7) Basophils # (Auto) 0.0 x10^3/uL (0.0-0.2) Sodium Level 141 mmol/L (136-145) Potassium Level 3.8 mmol/L (3.5-5.1) Chloride Level 105 mmol/L (98-107) Carbon Dioxide Level 28 mmol/L (21-32) Anion Gap 8 (6-14) Blood Urea Nitrogen 9 mg/dL (7-20) Creatinine 0.5 mg/dL (0.6-1.0) Estimated GFR (Cockcroft-Gault) 130.1 Glucose Level 127 mg/dL (70-99) Calcium Level 8.2 mg/dL (8.5-10.1) Phosphorus Level 4.9 mg/dL (2.6-4.7) Magnesium Level 1.9 mg/dL (1.8-2.4) Test 06/12/17 11:33 Glucose (Fingerstick) 125 mg/dL (70-99) Medications Current Medications Ondansetron HCl (Zofran) 4 mg PRN Q6HRS PRN IV NAUSEA/VOMITING Last administered on 06/07/17 03:59; Start 06/06/17 at 07:00; Stop 06/07/17 at 06:59 ; Status DC Fentanyl Citrate (Fentanyl 2ml Vial) 25 mcg PRN Q5MIN PRN IV MILD PAIN; Start 06/06/17 at 07:00; Stop 06/07/17 at 06:59; Status DC Fentanyl Citrate (Fentanyl 2ml Vial) 50 mcg PRN Q5MIN PRN IV MODERATE PAIN Last administered on 06/06/17 16:11; Start 06/06/17 at 07:00; Stop 06/07/17 at 06:59; Status DC Morphine Sulfate 1 mg PRN Q10MIN PRN IV SEVERE PAIN Last administered on 16:51; Start 06/06/17 at 07:00; Stop 06/07/17 at 06:59; Status DC Ringer's Solution 1,000 ml @ 0 mls/hr Q0M IV Last administered on 06/06/17 07 :32; Start 06/06/17 at 07:00; Stop 06/06/17 at 18:59; Status DC Lidocaine HCl (Xylocaine-Mpf 1% Vial) 2 ml PRN 1X PRN ID PRIOR TO IV START; Start 06/06/17 at 07:00; Stop 06/07/17 at 06:59; Status DC Hydromorphone HCl (Dilaudid) 0.5 mg PRN Q10MIN PRN IV SEV PAIN, Second choice; Start 06/06/17 at 07:00; Stop 06/07/17 at 06:59; Status DC Prochlorperazine Edisylate (Compazine) 5 mg PACU PRN PRN IV NAUSEA, MRX1 Last administered on 06/06/17t 18:12; Start 06/06/17 at 07:00; Stop 06/07/17 at 06:59 ; Status DC Cefoxitin Sodium 50 ml @ As Directed STK-MED ONCE IV ; Start 06/06/17 at 07:20; Stop 06/06/17 at 07:21; Status DC Rocuronium Hemet (Zemuron) 50 mg STK-MED ONCE .ROUTE ; Start 06/06/17 at 07:38 ; Stop 06/06/17 at 07:39; Status DC Midazolam HCl (Versed) 2 mg STK-MED ONCE .ROUTE ; Start 06/06/17 at 07:38; Stop 06/06/17 at 07:39; Status DC Fentanyl Citrate (Fentanyl 5ml Vial) 250 mcg STK-MED ONCE .ROUTE ; Start at 07:38; Stop 06/06/17 at 07:39; Status DC Propofol 20 ml @ As Directed STK-MED ONCE IV ; Start 06/06/17 at 07:38; Stop at 07:39; Status DC Lidocaine HCl (Lidocaine Pf 2% Vial) 5 ml STK-MED ONCE .ROUTE ; Start 06/06/17 at 07:38; Stop 06/06/17 at 07:39; Status DC Levofloxacin/ Dextrose 150 ml @ As Directed STK-MED ONCE IV ; Start 06/06/17 at 08:05; Stop 06/06/17 at 08:06; Status DC Levofloxacin/ Dextrose 150 ml @ 0 mls/hr 1X ONCE IV Last administered on 08:33; Start 06/06/17 at 08:15; Stop 06/06/17 at 08:16; Status DC Sevoflurane (Ultane) 90 ml STK-MED ONCE IH ; Start 06/06/17 at 09:04; Stop 06/06 at 09:05; Status DC Cellulose 1 each STK-MED ONCE .ROUTE ; Start 06/06/17 at 09:06; Stop 06/06/17 at 09:07; Status DC Cellulose 1 each STK-MED ONCE TP Last administered on 06/06/17 09:07; Start 06/06/17 at 09:07; Stop 06/06/17 at 09:10; Status DC Rocuronium Hemet (Zemuron) 100 mg STK-MED ONCE .ROUTE ; Start 06/06/17 at 09: 08; Stop 06/06/17 at 09:09; Status DC Fentanyl Citrate (Fentanyl 5ml Vial) 250 mcg STK-MED ONCE .ROUTE ; Start at 12:38; Stop 06/06/17 at 12:39; Status DC Albumin Human 500 ml @ As Directed STK-MED ONCE IV ; Start 06/06/17 at 13:36; Stop 06/06/17 at 13:37; Status DC Neostigmine Methylsulfate (Bloxiverz) 10 mg STK-MED ONCE .ROUTE ; Start at 13:57; Stop 06/06/17 at 13:58; Status DC Glycopyrrolate (Robinul) 1 mg STK-MED ONCE .ROUTE ; Start 06/06/17 at 13:57; Stop 06/06/17 at 13:58; Status DC Enoxaparin Sodium (Lovenox 40mg Syringe) 40 mg Q24H SQ Last administered on 15:52; Start 06/06/17 at 15:00 Sodium Chloride (Normal Saline Flush) 3 ml QSHIFT PRN IV AFTER MEDS AND BLOOD DRAWS; Start 06/06/17 at 14:45 Ringer's Solution 1,000 ml @ 50 mls/hr Q20H IV Last administered on 09:40; Start 06/06/17 at 14:41; Stop 06/12/17 at 11:28; Status DC Naloxone HCl (Narcan) 0.4 mg PRN Q2MIN PRN IV SEE INSTRUCTIONS; Start 06/06/17 at 14:45; Stop 06/07/17 at 13:45; Status DC Sodium Chloride 1,000 ml @ 25 mls/hr Q24H IV ; Start 06/06/17 at 14:41; Stop 06/07/17 at 13:44; Status DC Morphine Sulfate 30 ml @ 0 mls/hr CONT PRN PRN IV PROTOCOL Last administered on 06/06/17 16:15; Start 06/06/17 at 14:45; Stop 06/08/17 at 09:57; Status DC Levofloxacin/ Dextrose 150 ml @ 100 mls/hr Q24H IV Last administered on 08:50; Start 06/07/17 at 08:00 Midazolam HCl (Versed) 2 mg PRN Q1HR PRN IV SEDATION PT ON VENT; Start at 19:00; Stop 06/07/17 at 13:44; Status DC Propofol 100 ml @ 0 mls/hr CONT PRN IV SEE I/O RECORD Last administered on 06/07 03:17; Start 06/06/17 at 19:00; Stop 06/09/17 at 09:50; Status DC Chlorhexidine Gluconate (Peridex) 15 ml BID SWSP Last administered on 08:32; Start 06/06/17 at 21:00; Stop 06/07/17 at 13:44; Status DC Naloxone HCl (Narcan) 0.4 mg PRN Q2MIN PRN IV SEE INSTRUCTIONS; Start 06/07/17 at 11:30; Stop 06/10/17 at 02:07; Status DC Sodium Chloride 1,000 ml @ 25 mls/hr Q24H IV Last administered on 06/12/17 08:51; Start 06/07/17 at 11:18 Hydromorphone HCl 30 ml @ 0 mls/hr CONT PRN PRN IV PROTOCOL Last administered on 06/09/17 09:54; Start 06/07/17 at 11:30; Stop 06/09/17 at 22:32; Status DC Alteplase, Recombinant (Cathflo) 2 mg 1X ONCE INT CAT Last administered on 14:09; Start 06/07/17 at 12:30; Stop 06/07/17 at 12:31; Status DC Lorazepam (Ativan) 0.5 mg PRN Q6HRS PRN IV ANXIETY / AGITATION Last administered on 06/12/17 09:54; Start 06/07/17 at 17:45 Prochlorperazine Edisylate (Compazine) 10 mg PRN Q6HRS PRN IV NAUSEA/VOMITING Last administered on 06/11/17 21:26; Start 06/07/17 at 22:45 Info 1 each PRN DAILY PRN MC SEE COMMENTS Last administered on 06/12/17 12:35 ; Start 06/08/17 at 13:30 Sodium Chloride 90 meq/Potassium Chloride 50 meq/ Potassium Phosphate 13.6 mmol/ Magnesium Sulfate 10 meq/ Calcium Gluconate 10 meq/ Multivitamins 10 ml/Chromium / Copper/Manganese/ Seleni/Zn 1 ml/ Total Parenteral Nutrition/Amino Acids/ Dextrose/ Fat Emulsion Intravenous 1,512 ml @ 63 mls/hr TPN CONT IV Last administered on 06/08/17 22:56; Start 06/08/17 at 22:00; Stop 06/09/17 at 21: 59; Status DC Magnesium Sulfate/ Dextrose 50 ml @ 25 mls/hr 1X ONCE IV Last administered on 06/08/17 14:45; Start 06/08/17 at 14:00; Stop 06/08/17 at 15:59; Status DC Alteplase, Recombinant (Cathflo) 2 mg 1X ONCE INT CAT Last administered on 10:00; Start 06/09/17 at 08:45; Stop 06/09/17 at 08:46; Status DC Famotidine (Pepcid Vial) 20 mg BID IVP Last administered on 06/12/17 08:50; Start 06/09/17 at 10:30 Fentanyl (Duragesic 25mcg/ Hr Patch) 1 patch Q3DAYS TD ; Start 06/09/17 at 10: 30; Stop 06/09/17 at 12:29; Status DC Levothyroxine Sodium 50 mcg/ Sodium Chloride 5 ml @ 100 mls/hr DAILY IVP Last administered on 06/12/17 08:51; Start 06/09/17 at 10:30 Diphenhydramine HCl (Benadryl) 25 mg PRN QHS PRN IVP sleep Last administered on 06/12/17 01:53; Start 06/09/17 at 10:00 Sodium Chloride 90 meq/Potassium Chloride 50 meq/ Potassium Phosphate 20.4 mmol/ Magnesium Sulfate 20 meq/ Calcium Gluconate 10 meq/ Multivitamins 10 ml/Chromium / Copper/Manganese/ Seleni/Zn 1 ml/ Total Parenteral Nutrition/Amino Acids/ Dextrose/ Fat Emulsion Intravenous 1,512 ml @ 63 mls/hr TPN CONT IV Last administered on 06/09/17 23:28; Start 06/09/17 at 22:00; Stop 06/10/17 at 21 :59; Status DC Hydromorphone HCl (Dilaudid) 1 mg PRN Q3HRS PRN IV SEVERE PAIN Last administered on 06/10/17 00:16; Start 06/09/17 at 22:45; Stop 06/10/17 at 02 :07; Status DC Ketorolac Tromethamine (Toradol) 15 mg 1X ONCE IV ; Start 06/10/17 at 02:30; Stop 06/10/17 at 02:31; Status DC Naloxone HCl (Narcan) 0.4 mg PRN Q2MIN PRN IV SEE INSTRUCTIONS; Start at 02:00 Hydromorphone HCl 30 ml @ 0 mls/hr CONT PRN PRN IV PROTOCOL Last administered on 06/12/17 10:01; Start 06/10/17 at 02:00 Potassium Chloride 50 ml @ 50 mls/hr Q1H IV Last administered on 06/10/17 14: 17; Start 06/10/17 at 13:00; Stop 06/10/17 at 14:59; Status DC Sodium Chloride 90 meq/Potassium Chloride 70 meq/ Potassium Phosphate 20.4 mmol/ Magnesium Sulfate 20 meq/ Calcium Gluconate 10 meq/ Multivitamins 10 ml/Chromium / Copper/Manganese/ Seleni/Zn 1 ml/ Total Parenteral Nutrition/Amino Acids/ Dextrose/ Fat Emulsion Intravenous 1,512 ml @ 63 mls/hr TPN CONT IV Last administered on 06/10/17 22:05; Start 06/10/17 at 22:00; Stop 06/11/17 at 21 :59; Status DC Magnesium Sulfate/ Dextrose 100 ml @ 100 mls/hr 1X ONCE IV Last administered on 06/10/17 15:27; Start 06/10/17 at 13:30; Stop 06/10/17 at 14:29; Status DC Throat Lozenges (Chloraseptic) 1 spray PRN Q2HR PRN PO SORE THROAT Last administered on 06/11/17 00:54; Start 06/10/17 at 22:45 Sodium Chloride 90 meq/Potassium Chloride 70 meq/ Potassium Phosphate 20.4 mmol/ Magnesium Sulfate 20 meq/ Calcium Gluconate 10 meq/ Multivitamins 10 ml/Chromium / Copper/Manganese/ Seleni/Zn 1 ml/ Total Parenteral Nutrition/Amino Acids/ Dextrose/ Fat Emulsion Intravenous 1,512 ml @ 63 mls/hr TPN CONT IV Last administered on 06/11/17 21:27; Start 06/11/17 at 22:00; Stop 06/12/17 at 21 :59 Albuterol Sulfate (Ventolin Neb Soln) 2.5 mg PRN Q4HRS PRN NEB SHORTNESS OF BREATH; Start 06/12/17 at 11:30 Fentanyl (Duragesic 100mcg/Hr Patch) 1 patch Q3DAYS TD Last administered on 12:06; Start 06/12/17 at 12:00 Fentanyl (Duragesic 25mcg/ Hr Patch) 1 patch Q3DAYS TD Last administered on 12:06; Start 06/12/17 at 12:00 Sodium Chloride 90 meq/Potassium Chloride 70 meq/ Potassium Phosphate 13.6 mmol/ Magnesium Sulfate 20 meq/ Calcium Gluconate 10 meq/ Multivitamins 10 ml/Chromium / Copper/Manganese/ Seleni/Zn 1 ml/ Total Parenteral Nutrition/Amino Acids/ Dextrose/ Fat Emulsion Intravenous 1,512 ml @ 63 mls/hr TPN CONT IV ; Start 06/12/17 at 22:00; Stop 06/13/17 at 21:59 Active Scripts Active Reported Acetaminophen 500 Mg Tablet 650 Mg PO EVERY 6 HRS PRN Diphenhydramine Hcl 50 Mg Capsule 1 Cap PO EVERY 4 HRS PRN Lorazepam 0.5 Mg Tablet 1 Tab PO EVERY 6 HRS PRN Trazodone Hcl 300 Mg Tablet 400 Mg PO HS Heparin 10 Unit/10 Ml (1/Ml) (Heparin Sodium,Porcine/Pf) 1 Unit/1 Ml Disp.syrin 5,000 Unit SUBCUT/PO EVERY 8 HRS Promethazine Hcl 6.25 Mg/5 Ml Syrup 5 Ml IV TID PRN PRN Levothyroxine Sodium 100 Mcg Tablet 100 Mcg IV HS Escitalopram Oxalate 5 Mg Tablet 20 Mg PO DAILY Pantoprazole Sodium 40 Mg Tablet.dr 1 Tab PO IV Tpn Electrolytes Ii Iv Soln (Sodium/K+/Mag/Ca/Chlor/Acetate) 20 Ml Vial 20 Ml IV FENTANYL 25mcg/hr (Fentanyl) 1 Each Patch.td72 1 Patch TP Q3DAYS Hydromorphone Hcl 4 Mg Tablet 1 Tab IV QIDPRN PRN Hydromorphone Hcl 4 Mg Tablet 2 Mg PO Vitals/I & O Vital Sign - Last 24 Hours 06/11/17 06/11/17 06/11/17 06/11/17 15:00 19:00 20:00 22:02 Temp 96.9 96.6 96.9 96.6 Pulse 88 88 Resp 24 24 20 B/P (MAP) 163/73 (103) 163/73 (103) Pulse Ox 91 91 O2 Delivery Nasal Cannula Nasal Cannula Nasal Cannula Nasal Cannula O2 Flow Rate 2.0 2.0 2.0 2.0 06/11/17 06/11/17 06/12/17 06/12/17 22:32 23:00 03:00 07:00 Temp 97.9 97.9 98.6 97.9 97.9 98.6 Pulse 83 85 84 Resp 20 16 18 20 B/P (MAP) 130/74 (92) 132/75 (94) 130/61 (84) Pulse Ox 98 97 98 O2 Delivery Nasal Cannula Nasal Cannula Nasal Cannula O2 Flow Rate 2.0 06/12/17 06/12/17 06/12/17 06/12/17 10:01 10:35 11:00 12:06 Temp 98.3 98.3 Pulse 89 Resp 20 B/P (MAP) 112/70 (84) Pulse Ox 98 98 96 98 O2 Delivery Nasal Cannula Nasal Cannula Nasal Cannula Nasal Cannula O2 Flow Rate 2.0 2.0 2.0 2.0 06/12/17 12:06 Pulse Ox 98 O2 Delivery Nasal Cannula O2 Flow Rate 2.0 Intake and Output 06/11/17 06/11/17 06/12/17 15:00 23:00 07:00 Intake Total 0 ml 390 ml Output Total 100 ml 451 ml Balance -100 ml 0 ml -61 ml Nutrition Consultation Dietary Evaluation: Recommendations by RD: Increase Calorie Intake, Protein supplementation, PPN/ TPN Comments: continue TPN: 250 g dextrose, 60 g AA, 40 g lipid added boost breeze supplements while on clear liquids Expected Outcomes/Goals: Initiation of nutrition within 24 - 48 hrs - met continue to meet > 65% nutrition needs via TPN Interpretation of weight loss: >7.5% in 3 months Malnutrition Findings: Food and Nutrition Intake (Mod: <75% est energy req 7days Weight Status: Morbidly Obese DEON RAPHAEL MD Jun 12, 2017 14:08
[2017-06-12] MEDS ORDERED: MORPHINE SULFATE 4 MG/ML DISP.SYRIN. IV PRN (14:15)
[2017-06-12] MEDS ORDERED: ACETAMINOPHEN 325 MG TABLET. PO PRN (14:15)
[2017-06-12] MEDS ORDERED: traMADol 50 MG TABLET PO PRN (14:15)
[2017-06-12] MEDS ORDERED: hydrALAZINE 20 MG/ML VIAL. IVP PRN (14:15)
[2017-06-12] MEDS ORDERED: DOCUSATE SODIUM 100 MG CAPSULE. PO PRN (14:15)
[2017-06-12] MEDS ORDERED: ONDANSETRON PF 4 MG/2 ML VIAL. IV PRN (14:15)
[2017-06-12] MEDS: ENOXAPARIN 40 MG/0.4 ML SYRINGE. SQ SCH (14:55)
[2017-06-12 15:00] VITALS: BP 147/66
--- NOTE | 2017-06-12 15:20 | PDOC ---
SURGICAL PROGRESS NOTE Subjective Pt with c/o mild incisional pain, brian clears, passing stools Vital Signs Vital Signs Date Time Temp Pulse Resp B/P (MAP) Pulse Ox O2 Delivery O2 Flow Rate FiO2 06/12/17 12:06 98 Nasal Cannula 2.0 06/12/17 11:00 98.3 89 20 112/70 (84) 98.3 I&O Intake and Output 06/12/17 07:00 Intake Total 390 ml Output Total 551 ml Balance -161 ml Intake Oral 390 ml Output Urine Total 450 ml Stool Total 1 ml Gastric Drainage Total 100 ml # Bowel Movements 1 General: Alert, Oriented X3, Cooperative, No acute distress Abdomen: Soft, No tenderness, Other (wound with superficial dehiscense, but fascia well covered) Labs Laboratory Tests Test 06/10/17 16:25 06/10/17 21:03 06/11/17 04:40 06/11/17 07:15 Glucose (Fingerstick) 145 mg/dL (70-99) 132 mg/dL (70-99) 128 mg/dL (70-99) White Blood Count 5.9 x10^3/uL (4.0-11.0) Red Blood Count 2.87 x10^6/uL (3.50-5.40) Hemoglobin 7.3 g/dL (12.0-15.5) Hematocrit 22.5 % (36.0-47.0) Mean Corpuscular Volume 78 fL (79-100) Mean Corpuscular Hemoglobin 26 pg (25-35) Mean Corpuscular Hemoglobin Concent 33 g/dL (31-37) Red Cell Distribution Width 17.3 % (11.5-14.5) Platelet Count 191 x10^3/uL (140-400) Neutrophils (%) (Auto) 66 % (31-73) Lymphocytes (%) (Auto) 22 % (24-48) Monocytes (%) (Auto) 7 % (0-9) Eosinophils (%) (Auto) 5 % (0-3) Basophils (%) (Auto) 0 % (0-3) Neutrophils # (Auto) 3.9 x10^3uL (1.8-7.7) Lymphocytes # (Auto) 1.3 x10^3/uL (1.0-4.8) Monocytes # (Auto) 0.4 x10^3/uL (0.0-1.1) Eosinophils # (Auto) 0.3 x10^3/uL (0.0-0.7) Basophils # (Auto) 0.0 x10^3/uL (0.0-0.2) Sodium Level 141 mmol/L (136-145) Potassium Level 3.8 mmol/L (3.5-5.1) Chloride Level 104 mmol/L (98-107) Carbon Dioxide Level 29 mmol/L (21-32) Anion Gap 8 (6-14) Blood Urea Nitrogen 8 mg/dL (7-20) Creatinine 0.5 mg/dL (0.6-1.0) Estimated GFR (Cockcroft-Gault) 130.1 Glucose Level 138 mg/dL (70-99) Calcium Level 8.1 mg/dL (8.5-10.1) Phosphorus Level 3.4 mg/dL (2.6-4.7) Magnesium Level 1.9 mg/dL (1.8-2.4) Test 06/11/17 11:05 06/11/17 16:05 06/11/17 21:28 06/12/17 04:01 Glucose (Fingerstick) 118 mg/dL (70-99) 124 mg/dL (70-99) 132 mg/dL (70-99) White Blood Count 6.1 x10^3/uL (4.0-11.0) Red Blood Count 2.86 x10^6/uL (3.50-5.40) Hemoglobin 7.2 g/dL (12.0-15.5) Hematocrit 22.3 % (36.0-47.0) Mean Corpuscular Volume 78 fL (79-100) Mean Corpuscular Hemoglobin 25 pg (25-35) Mean Corpuscular Hemoglobin Concent 32 g/dL (31-37) Red Cell Distribution Width 16.9 % (11.5-14.5) Platelet Count 211 x10^3/uL (140-400) Neutrophils (%) (Auto) 65 % (31-73) Lymphocytes (%) (Auto) 23 % (24-48) Monocytes (%) (Auto) 8 % (0-9) Eosinophils (%) (Auto) 4 % (0-3) Basophils (%) (Auto) 0 % (0-3) Neutrophils # (Auto) 3.9 x10^3uL (1.8-7.7) Lymphocytes # (Auto) 1.4 x10^3/uL (1.0-4.8) Monocytes # (Auto) 0.5 x10^3/uL (0.0-1.1) Eosinophils # (Auto) 0.3 x10^3/uL (0.0-0.7) Basophils # (Auto) 0.0 x10^3/uL (0.0-0.2) Sodium Level 141 mmol/L (136-145) Potassium Level 3.8 mmol/L (3.5-5.1) Chloride Level 105 mmol/L (98-107) Carbon Dioxide Level 28 mmol/L (21-32) Anion Gap 8 (6-14) Blood Urea Nitrogen 9 mg/dL (7-20) Creatinine 0.5 mg/dL (0.6-1.0) Estimated GFR (Cockcroft-Gault) 130.1 Glucose Level 127 mg/dL (70-99) Calcium Level 8.2 mg/dL (8.5-10.1) Phosphorus Level 4.9 mg/dL (2.6-4.7) Magnesium Level 1.9 mg/dL (1.8-2.4) Test 06/12/17 07:57 06/12/17 11:33 Glucose (Fingerstick) 136 mg/dL (70-99) 125 mg/dL (70-99) Laboratory Tests Test 06/11/17 16:05 06/11/17 21:28 06/12/17 04:01 06/12/17 07:57 Glucose (Fingerstick) 124 mg/dL (70-99) 132 mg/dL (70-99) 136 mg/dL (70-99) White Blood Count 6.1 x10^3/uL (4.0-11.0) Red Blood Count 2.86 x10^6/uL (3.50-5.40) Hemoglobin 7.2 g/dL (12.0-15.5) Hematocrit 22.3 % (36.0-47.0) Mean Corpuscular Volume 78 fL (79-100) Mean Corpuscular Hemoglobin 25 pg (25-35) Mean Corpuscular Hemoglobin Concent 32 g/dL (31-37) Red Cell Distribution Width 16.9 % (11.5-14.5) Platelet Count 211 x10^3/uL (140-400) Neutrophils (%) (Auto) 65 % (31-73) Lymphocytes (%) (Auto) 23 % (24-48) Monocytes (%) (Auto) 8 % (0-9) Eosinophils (%) (Auto) 4 % (0-3) Basophils (%) (Auto) 0 % (0-3) Neutrophils # (Auto) 3.9 x10^3uL (1.8-7.7) Lymphocytes # (Auto) 1.4 x10^3/uL (1.0-4.8) Monocytes # (Auto) 0.5 x10^3/uL (0.0-1.1) Eosinophils # (Auto) 0.3 x10^3/uL (0.0-0.7) Basophils # (Auto) 0.0 x10^3/uL (0.0-0.2) Sodium Level 141 mmol/L (136-145) Potassium Level 3.8 mmol/L (3.5-5.1) Chloride Level 105 mmol/L (98-107) Carbon Dioxide Level 28 mmol/L (21-32) Anion Gap 8 (6-14) Blood Urea Nitrogen 9 mg/dL (7-20) Creatinine 0.5 mg/dL (0.6-1.0) Estimated GFR (Cockcroft-Gault) 130.1 Glucose Level 127 mg/dL (70-99) Calcium Level 8.2 mg/dL (8.5-10.1) Phosphorus Level 4.9 mg/dL (2.6-4.7) Magnesium Level 1.9 mg/dL (1.8-2.4) Test 06/12/17 11:33 Glucose (Fingerstick) 125 mg/dL (70-99) Problem List s/p ECF takedown will advance diet plan transfer back to [facility] [place] tomorrow Problems: HAKEEM CANNON MD Jun 12, 2017 15:20
[2017-06-12] MEDS: PROCHLORPERAZINE 10 MG/2 ML VIAL. IV PRN (17:17)
--- NOTE | 2017-06-12 18:40 | PDOC ---
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 Labs Laboratory Tests Test 06/10/17 21:03 06/11/17 04:40 06/11/17 07:15 06/11/17 11:05 Glucose (Fingerstick) 132 mg/dL (70-99) 128 mg/dL (70-99) 118 mg/dL (70-99) White Blood Count 5.9 x10^3/uL (4.0-11.0) Red Blood Count 2.87 x10^6/uL (3.50-5.40) Hemoglobin 7.3 g/dL (12.0-15.5) Hematocrit 22.5 % (36.0-47.0) Mean Corpuscular Volume 78 fL (79-100) Mean Corpuscular Hemoglobin 26 pg (25-35) Mean Corpuscular Hemoglobin Concent 33 g/dL (31-37) Red Cell Distribution Width 17.3 % (11.5-14.5) Platelet Count 191 x10^3/uL (140-400) Neutrophils (%) (Auto) 66 % (31-73) Lymphocytes (%) (Auto) 22 % (24-48) Monocytes (%) (Auto) 7 % (0-9) Eosinophils (%) (Auto) 5 % (0-3) Basophils (%) (Auto) 0 % (0-3) Neutrophils # (Auto) 3.9 x10^3uL (1.8-7.7) Lymphocytes # (Auto) 1.3 x10^3/uL (1.0-4.8) Monocytes # (Auto) 0.4 x10^3/uL (0.0-1.1) Eosinophils # (Auto) 0.3 x10^3/uL (0.0-0.7) Basophils # (Auto) 0.0 x10^3/uL (0.0-0.2) Sodium Level 141 mmol/L (136-145) Potassium Level 3.8 mmol/L (3.5-5.1) Chloride Level 104 mmol/L (98-107) Carbon Dioxide Level 29 mmol/L (21-32) Anion Gap 8 (6-14) Blood Urea Nitrogen 8 mg/dL (7-20) Creatinine 0.5 mg/dL (0.6-1.0) Estimated GFR (Cockcroft-Gault) 130.1 Glucose Level 138 mg/dL (70-99) Calcium Level 8.1 mg/dL (8.5-10.1) Phosphorus Level 3.4 mg/dL (2.6-4.7) Magnesium Level 1.9 mg/dL (1.8-2.4) Test 06/11/17 16:05 06/11/17 21:28 06/12/17 04:01 06/12/17 07:57 Glucose (Fingerstick) 124 mg/dL (70-99) 132 mg/dL (70-99) 136 mg/dL (70-99) White Blood Count 6.1 x10^3/uL (4.0-11.0) Red Blood Count 2.86 x10^6/uL (3.50-5.40) Hemoglobin 7.2 g/dL (12.0-15.5) Hematocrit 22.3 % (36.0-47.0) Mean Corpuscular Volume 78 fL (79-100) Mean Corpuscular Hemoglobin 25 pg (25-35) Mean Corpuscular Hemoglobin Concent 32 g/dL (31-37) Red Cell Distribution Width 16.9 % (11.5-14.5) Platelet Count 211 x10^3/uL (140-400) Neutrophils (%) (Auto) 65 % (31-73) Lymphocytes (%) (Auto) 23 % (24-48) Monocytes (%) (Auto) 8 % (0-9) Eosinophils (%) (Auto) 4 % (0-3) Basophils (%) (Auto) 0 % (0-3) Neutrophils # (Auto) 3.9 x10^3uL (1.8-7.7) Lymphocytes # (Auto) 1.4 x10^3/uL (1.0-4.8) Monocytes # (Auto) 0.5 x10^3/uL (0.0-1.1) Eosinophils # (Auto) 0.3 x10^3/uL (0.0-0.7) Basophils # (Auto) 0.0 x10^3/uL (0.0-0.2) Sodium Level 141 mmol/L (136-145) Potassium Level 3.8 mmol/L (3.5-5.1) Chloride Level 105 mmol/L (98-107) Carbon Dioxide Level 28 mmol/L (21-32) Anion Gap 8 (6-14) Blood Urea Nitrogen 9 mg/dL (7-20) Creatinine 0.5 mg/dL (0.6-1.0) Estimated GFR (Cockcroft-Gault) 130.1 Glucose Level 127 mg/dL (70-99) Calcium Level 8.2 mg/dL (8.5-10.1) Phosphorus Level 4.9 mg/dL (2.6-4.7) Magnesium Level 1.9 mg/dL (1.8-2.4) Test 06/12/17 11:33 06/12/17 17:08 Glucose (Fingerstick) 125 mg/dL (70-99) 130 mg/dL (70-99) Laboratory Tests Test 06/11/17 21:28 06/12/17 04:01 06/12/17 07:57 06/12/17 11:33 Glucose (Fingerstick) 132 mg/dL (70-99) 136 mg/dL (70-99) 125 mg/dL (70-99) White Blood Count 6.1 x10^3/uL (4.0-11.0) Red Blood Count 2.86 x10^6/uL (3.50-5.40) Hemoglobin 7.2 g/dL (12.0-15.5) Hematocrit 22.3 % (36.0-47.0) Mean Corpuscular Volume 78 fL (79-100) Mean Corpuscular Hemoglobin 25 pg (25-35) Mean Corpuscular Hemoglobin Concent 32 g/dL (31-37) Red Cell Distribution Width 16.9 % (11.5-14.5) Platelet Count 211 x10^3/uL (140-400) Neutrophils (%) (Auto) 65 % (31-73) Lymphocytes (%) (Auto) 23 % (24-48) Monocytes (%) (Auto) 8 % (0-9) Eosinophils (%) (Auto) 4 % (0-3) Basophils (%) (Auto) 0 % (0-3) Neutrophils # (Auto) 3.9 x10^3uL (1.8-7.7) Lymphocytes # (Auto) 1.4 x10^3/uL (1.0-4.8) Monocytes # (Auto) 0.5 x10^3/uL (0.0-1.1) Eosinophils # (Auto) 0.3 x10^3/uL (0.0-0.7) Basophils # (Auto) 0.0 x10^3/uL (0.0-0.2) Sodium Level 141 mmol/L (136-145) Potassium Level 3.8 mmol/L (3.5-5.1) Chloride Level 105 mmol/L (98-107) Carbon Dioxide Level 28 mmol/L (21-32) Anion Gap 8 (6-14) Blood Urea Nitrogen 9 mg/dL (7-20) Creatinine 0.5 mg/dL (0.6-1.0) Estimated GFR (Cockcroft-Gault) 130.1 Glucose Level 127 mg/dL (70-99) Calcium Level 8.2 mg/dL (8.5-10.1) Phosphorus Level 4.9 mg/dL (2.6-4.7) Magnesium Level 1.9 mg/dL (1.8-2.4) Test 06/12/17 17:08 Glucose (Fingerstick) 130 mg/dL (70-99) Medications Current Medications Ondansetron HCl (Zofran) 4 mg PRN Q6HRS PRN IV NAUSEA/VOMITING Last administered on 06/07/17 03:59; Start 06/06/17 at 07:00; Stop 06/07/17 at 06:59 ; Status DC Fentanyl Citrate (Fentanyl 2ml Vial) 25 mcg PRN Q5MIN PRN IV MILD PAIN; Start 06/06/17 at 07:00; Stop 06/07/17 at 06:59; Status DC Fentanyl Citrate (Fentanyl 2ml Vial) 50 mcg PRN Q5MIN PRN IV MODERATE PAIN Last administered on 06/06/17 16:11; Start 06/06/17 at 07:00; Stop 06/07/17 at 06:59; Status DC Morphine Sulfate 1 mg PRN Q10MIN PRN IV SEVERE PAIN Last administered on 16:51; Start 06/06/17 at 07:00; Stop 06/07/17 at 06:59; Status DC Ringer's Solution 1,000 ml @ 0 mls/hr Q0M IV Last administered on 06/06/17 07 :32; Start 06/06/17 at 07:00; Stop 06/06/17 at 18:59; Status DC Lidocaine HCl (Xylocaine-Mpf 1% Vial) 2 ml PRN 1X PRN ID PRIOR TO IV START; Start 06/06/17 at 07:00; Stop 06/07/17 at 06:59; Status DC Hydromorphone HCl (Dilaudid) 0.5 mg PRN Q10MIN PRN IV SEV PAIN, Second choice; Start 06/06/17 at 07:00; Stop 06/07/17 at 06:59; Status DC Prochlorperazine Edisylate (Compazine) 5 mg PACU PRN PRN IV NAUSEA, MRX1 Last administered on 06/06/17 18:12; Start 06/06/17 at 07:00; Stop 06/07/17 at 06:59 ; Status DC Cefoxitin Sodium 50 ml @ As Directed STK-MED ONCE IV ; Start 06/06/17 at 07:20; Stop 06/06/17 at 07:21; Status DC Rocuronium [place] (Zemuron) 50 mg STK-MED ONCE .ROUTE ; Start 06/06/17 at 07:38 ; Stop 06/06/17 at 07:39; Status DC Midazolam HCl (Versed) 2 mg STK-MED ONCE .ROUTE ; Start 06/06/17 at 07:38; Stop 06/06/17 at 07:39; Status DC Fentanyl Citrate (Fentanyl 5ml Vial) 250 mcg STK-MED ONCE .ROUTE ; Start at 07:38; Stop 06/06/17 at 07:39; Status DC Propofol 20 ml @ As Directed STK-MED ONCE IV ; Start 06/06/17 at 07:38; Stop at 07:39; Status DC Lidocaine HCl (Lidocaine Pf 2% Vial) 5 ml STK-MED ONCE .ROUTE ; Start 06/06/17 at 07:38; Stop 06/06/17 at 07:39; Status DC Levofloxacin/ Dextrose 150 ml @ As Directed STK-MED ONCE IV ; Start 06/06/17 at 08:05; Stop 06/06/17 at 08:06; Status DC Levofloxacin/ Dextrose 150 ml @ 0 mls/hr 1X ONCE IV Last administered on 08:33; Start 06/06/17 at 08:15; Stop 06/06/17 at 08:16; Status DC Sevoflurane (Ultane) 90 ml STK-MED ONCE IH ; Start 06/06/17 at 09:04; Stop 06/06 at 09:05; Status DC Cellulose 1 each STK-MED ONCE .ROUTE ; Start 06/06/17 at 09:06; Stop 06/06/17 at 09:07; Status DC Cellulose 1 each STK-MED ONCE TP Last administered on 06/06/17 09:07; Start 06/06/17 at 09:07; Stop 06/06/17 at 09:10; Status DC Rocuronium [place] (Zemuron) 100 mg STK-MED ONCE .ROUTE ; Start 06/06/17 at 09: 08; Stop 06/06/17 at 09:09; Status DC Fentanyl Citrate (Fentanyl 5ml Vial) 250 mcg STK-MED ONCE .ROUTE ; Start at 12:38; Stop 06/06/17 at 12:39; Status DC Albumin Human 500 ml @ As Directed STK-MED ONCE IV ; Start 06/06/17 at 13:36; Stop 06/06/17 at 13:37; Status DC Neostigmine Methylsulfate (Bloxiverz) 10 mg STK-MED ONCE .ROUTE ; Start at 13:57; Stop 06/06/17 at 13:58; Status DC Glycopyrrolate (Robinul) 1 mg STK-MED ONCE .ROUTE ; Start 06/06/17 at 13:57; Stop 06/06/17 at 13:58; Status DC Enoxaparin Sodium (Lovenox 40mg Syringe) 40 mg Q24H SQ Last administered on 14:55; Start 06/06/17 at 15:00 Sodium Chloride (Normal Saline Flush) 3 ml QSHIFT PRN IV AFTER MEDS AND BLOOD DRAWS; Start 06/06/17 at 14:45 Ringer's Solution 1,000 ml @ 50 mls/hr Q20H IV Last administered on 09:40; Start 06/06/17 at 14:41; Stop 06/12/17 at 11:28; Status DC Naloxone HCl (Narcan) 0.4 mg PRN Q2MIN PRN IV SEE INSTRUCTIONS; Start 06/06/17 at 14:45; Stop 06/07/17 at 13:45; Status DC Sodium Chloride 1,000 ml @ 25 mls/hr Q24H IV ; Start 06/06/17 at 14:41; Stop 06/07/17 at 13:44; Status DC Morphine Sulfate 30 ml @ 0 mls/hr CONT PRN PRN IV PROTOCOL Last administered on 06/06/17 16:15; Start 06/06/17 at 14:45; Stop 06/08/17 at 09:57; Status DC Levofloxacin/ Dextrose 150 ml @ 100 mls/hr Q24H IV Last administered on 08:50; Start 06/07/17 at 08:00 Midazolam HCl (Versed) 2 mg PRN Q1HR PRN IV SEDATION PT ON VENT; Start at 19:00; Stop 06/07/17 at 13:44; Status DC Propofol 100 ml @ 0 mls/hr CONT PRN IV SEE I/O RECORD Last administered on 06/07 03:17; Start 06/06/17 at 19:00; Stop 06/09/17 at 09:50; Status DC Chlorhexidine Gluconate (Peridex) 15 ml BID SWSP Last administered on 08:32; Start 06/06/17 at 21:00; Stop 06/07/17 at 13:44; Status DC Naloxone HCl (Narcan) 0.4 mg PRN Q2MIN PRN IV SEE INSTRUCTIONS; Start 06/07/17 at 11:30; Stop 06/10/17 at 02:07; Status DC Sodium Chloride 1,000 ml @ 25 mls/hr Q24H IV Last administered on 06/12/17 08:51; Start 06/07/17 at 11:18 Hydromorphone HCl 30 ml @ 0 mls/hr CONT PRN PRN IV PROTOCOL Last administered on 06/09/17 09:54; Start 06/07/17 at 11:30; Stop 06/09/17 at 22:32; Status DC Alteplase, Recombinant (Cathflo) 2 mg 1X ONCE INT CAT Last administered on 14:09; Start 06/07/17 at 12:30; Stop 06/07/17 at 12:31; Status DC Lorazepam (Ativan) 0.5 mg PRN Q6HRS PRN IV ANXIETY / AGITATION Last administered on 06/12/17 09:54; Start 06/07/17 at 17:45 Prochlorperazine Edisylate (Compazine) 10 mg PRN Q6HRS PRN IV NAUSEA/VOMITING Last administered on 06/12/17 17:17; Start 06/07/17 at 22:45 Info 1 each PRN DAILY PRN MC SEE COMMENTS Last administered on 06/12/17 12:35 ; Start 06/08/17 at 13:30 Sodium Chloride 90 meq/Potassium Chloride 50 meq/ Potassium Phosphate 13.6 mmol/ Magnesium Sulfate 10 meq/ Calcium Gluconate 10 meq/ Multivitamins 10 ml/Chromium / Copper/Manganese/ Seleni/Zn 1 ml/ Total Parenteral Nutrition/Amino Acids/ Dextrose/ Fat Emulsion Intravenous 1,512 ml @ 63 mls/hr TPN CONT IV Last administered on 06/08/17 22:56; Start 06/08/17 at 22:00; Stop 06/09/17 at 21: 59; Status DC Magnesium Sulfate/ Dextrose 50 ml @ 25 mls/hr 1X ONCE IV Last administered on 06/08/17 14:45; Start 06/08/17 at 14:00; Stop 06/08/17 at 15:59; Status DC Alteplase, Recombinant (Cathflo) 2 mg 1X ONCE INT CAT Last administered on 10:00; Start 06/09/17 at 08:45; Stop 06/09/17 at 08:46; Status DC Famotidine (Pepcid Vial) 20 mg BID IVP Last administered on 06/12/17 08:50; Start 06/09/17 at 10:30 Fentanyl (Duragesic 25mcg/ Hr Patch) 1 patch Q3DAYS TD ; Start 06/09/17 at 10: 30; Stop 06/09/17 at 12:29; Status DC Levothyroxine Sodium 50 mcg/ Sodium Chloride 5 ml @ 100 mls/hr DAILY IVP Last administered on 06/12/17 08:51; Start 06/09/17 at 10:30 Diphenhydramine HCl (Benadryl) 25 mg PRN QHS PRN IVP sleep Last administered on 06/12/17 15:00; Start 06/09/17 at 10:00 Sodium Chloride 90 meq/Potassium Chloride 50 meq/ Potassium Phosphate 20.4 mmol/ Magnesium Sulfate 20 meq/ Calcium Gluconate 10 meq/ Multivitamins 10 ml/Chromium / Copper/Manganese/ Seleni/Zn 1 ml/ Total Parenteral Nutrition/Amino Acids/ Dextrose/ Fat Emulsion Intravenous 1,512 ml @ 63 mls/hr TPN CONT IV Last administered on 06/09/17 23:28; Start 06/09/17 at 22:00; Stop 06/10/17 at 21 :59; Status DC Hydromorphone HCl (Dilaudid) 1 mg PRN Q3HRS PRN IV SEVERE PAIN Last administered on 06/10/17 00:16; Start 06/09/17 at 22:45; Stop 06/10/17 at 02 :07; Status DC Ketorolac Tromethamine (Toradol) 15 mg 1X ONCE IV ; Start 06/10/17 at 02:30; Stop 06/10/17 at 02:31; Status DC Naloxone HCl (Narcan) 0.4 mg PRN Q2MIN PRN IV SEE INSTRUCTIONS; Start at 02:00 Hydromorphone HCl 30 ml @ 0 mls/hr CONT PRN PRN IV PROTOCOL Last administered on 06/12/17 10:01; Start 06/10/17 at 02:00 Potassium Chloride 50 ml @ 50 mls/hr Q1H IV Last administered on 06/10/17 14: 17; Start 06/10/17 at 13:00; Stop 06/10/17 at 14:59; Status DC Sodium Chloride 90 meq/Potassium Chloride 70 meq/ Potassium Phosphate 20.4 mmol/ Magnesium Sulfate 20 meq/ Calcium Gluconate 10 meq/ Multivitamins 10 ml/Chromium / Copper/Manganese/ Seleni/Zn 1 ml/ Total Parenteral Nutrition/Amino Acids/ Dextrose/ Fat Emulsion Intravenous 1,512 ml @ 63 mls/hr TPN CONT IV Last administered on 06/10/17 22:05; Start 06/10/17 at 22:00; Stop 06/11/17 at 21 :59; Status DC Magnesium Sulfate/ Dextrose 100 ml @ 100 mls/hr 1X ONCE IV Last administered on 06/10/17 15:27; Start 06/10/17 at 13:30; Stop 06/10/17 at 14:29; Status DC Throat Lozenges (Chloraseptic) 1 spray PRN Q2HR PRN PO SORE THROAT Last administered on 06/11/17 00:54; Start 06/10/17 at 22:45 Sodium Chloride 90 meq/Potassium Chloride 70 meq/ Potassium Phosphate 20.4 mmol/ Magnesium Sulfate 20 meq/ Calcium Gluconate 10 meq/ Multivitamins 10 ml/Chromium / Copper/Manganese/ Seleni/Zn 1 ml/ Total Parenteral Nutrition/Amino Acids/ Dextrose/ Fat Emulsion Intravenous 1,512 ml @ 63 mls/hr TPN CONT IV Last administered on 06/11/17 21:27; Start 06/11/17 at 22:00; Stop 06/12/17 at 21 :59 Albuterol Sulfate (Ventolin Neb Soln) 2.5 mg PRN Q4HRS PRN NEB SHORTNESS OF BREATH; Start 06/12/17 at 11:30 Fentanyl (Duragesic 100mcg/Hr Patch) 1 patch Q3DAYS TD Last administered on 12:06; Start 06/12/17 at 12:00 Fentanyl (Duragesic 25mcg/ Hr Patch) 1 patch Q3DAYS TD Last administered on 12:06; Start 06/12/17 at 12:00 Sodium Chloride 90 meq/Potassium Chloride 70 meq/ Potassium Phosphate 13.6 mmol/ Magnesium Sulfate 20 meq/ Calcium Gluconate 10 meq/ Multivitamins 10 ml/Chromium / Copper/Manganese/ Seleni/Zn 1 ml/ Total Parenteral Nutrition/Amino Acids/ Dextrose/ Fat Emulsion Intravenous 1,512 ml @ 63 mls/hr TPN CONT IV ; Start 06/12/17 at 22:00; Stop 06/13/17 at 21:59 Acetaminophen (Tylenol) 650 mg PRN Q6HRS PRN PO FEVER; Start 06/12/17 at 14:15 Ondansetron HCl (Zofran) 4 mg PRN Q6HRS PRN IV NAUSEA/VOMITING; Start at 14:15 Morphine Sulfate 2 mg PRN Q2HR PRN IV PAIN; Start 06/12/17 at 14:15 Tramadol HCl (Ultram) 50 mg PRN Q6HRS PRN PO PAIN; Start 06/12/17 at 14:15 Hydralazine HCl (Apresoline Inj) 10 mg PRN Q4HRS PRN IVP ELEVATED BP, SEE COMMENTS; Start 06/12/17 at 14:15 Docusate Sodium (Colace) 100 mg PRN DAILY PRN PO CONSTIPATION; Start 06/12/17 at 14:15 Active Scripts Active Reported Acetaminophen 500 Mg Tablet 650 Mg PO EVERY 6 HRS PRN Diphenhydramine Hcl 50 Mg Capsule 1 Cap PO EVERY 4 HRS PRN Lorazepam 0.5 Mg Tablet 1 Tab PO EVERY 6 HRS PRN Trazodone Hcl 300 Mg Tablet 400 Mg PO HS Heparin 10 Unit/10 Ml (1/Ml) (Heparin Sodium,Porcine/Pf) 1 Unit/1 Ml Disp.syrin 5,000 Unit SUBCUT/PO EVERY 8 HRS Promethazine Hcl 6.25 Mg/5 Ml Syrup 5 Ml IV TID PRN PRN Levothyroxine Sodium 100 Mcg Tablet 100 Mcg IV HS Escitalopram Oxalate 5 Mg Tablet 20 Mg PO DAILY Pantoprazole Sodium 40 Mg Tablet.dr 1 Tab PO IV Tpn Electrolytes Ii Iv Soln (Sodium/K+/Mag/Ca/Chlor/Acetate) 20 Ml Vial 20 Ml IV FENTANYL 25mcg/hr (Fentanyl) 1 Each Patch.td72 1 Patch TP Q3DAYS Hydromorphone Hcl 4 Mg Tablet 1 Tab IV QIDPRN PRN Hydromorphone Hcl 4 Mg Tablet 2 Mg PO Vitals/I & O Vital Sign - Last 24 Hours 06/11/17 06/11/17 06/11/17 06/11/17 19:00 20:00 22:02 22:32 Temp 96.6 96.6 Pulse 88 Resp 24 20 20 B/P (MAP) 163/73 (103) Pulse Ox 91 91 O2 Delivery Nasal Cannula Nasal Cannula Nasal Cannula O2 Flow Rate 2.0 2.0 2.0 06/11/17 06/12/17 06/12/17 06/12/17 23:00 03:00 07:00 07:45 Temp 97.9 97.9 98.6 97.9 97.9 98.6 Pulse 83 85 84 Resp 16 18 20 B/P (MAP) 130/74 (92) 132/75 (94) 130/61 (84) Pulse Ox 98 97 98 O2 Delivery Nasal Cannula Nasal Cannula Nasal Cannula Nasal Cannula O2 Flow Rate 2.0 2.0 06/12/17 06/12/17 06/12/17 06/12/17 10:01 10:35 11:00 12:06 Temp 98.3 98.3 Pulse 89 Resp 20 B/P (MAP) 112/70 (84) Pulse Ox 98 98 96 98 O2 Delivery Nasal Cannula Nasal Cannula Nasal Cannula Nasal Cannula O2 Flow Rate 2.0 2.0 2.0 2.0 06/12/17 06/12/17 06/12/17 06/12/17 12:06 15:00 15:48 16:10 Temp 98.4 98.4 Pulse 84 Resp 18 B/P (MAP) 147/66 (93) Pulse Ox 98 98 98 98 O2 Delivery Nasal Cannula Nasal Cannula Nasal Cannula Nasal Cannula O2 Flow Rate 2.0 2.0 2.0 2.0 06/12/17 16:10 Pulse Ox 98 O2 Delivery Nasal Cannula O2 Flow Rate 2.0 Intake and Output 06/11/17 06/11/17 06/12/17 15:00 23:00 07:00 Intake Total 0 ml 390 ml Output Total 100 ml 451 ml Balance -100 ml 0 ml -61 ml Assessment Fistula- S/P takedown, on TPN< SB series as o/p to assess length of small intestine, CPM LOUISE TINOCO MD Jun 12, 2017 18:40
[2017-06-12 19:15] VITALS: BP 153/79
[2017-06-12] MEDS ORDERED: [UNRECOGNIZED DRUG - OTHER] IV SCH ×10 (22:00)
[2017-06-12] MEDS ORDERED: AMINO ACIDS IV SCH ×10 (22:00)
[2017-06-12] MEDS ORDERED: TOTAL PARENTERAL NUTRITION IV SCH ×10 (22:00)
[2017-06-12] MEDS ORDERED: DEXTROSE 70% IV SCH ×10 (22:00)
[2017-06-12 23:24] VITALS: BP 127/78
[2017-06-13 02:44] VITALS: BP 122/74
[2017-06-13 07:00] VITALS: BP 144/63
[2017-06-13 07:30] LABS: BASO % 0 % (0-3); EOS % 5 % (0-3); HEMATOCRIT 25.8 % (36.0-47.0); HEMOGLOBIN 8.2 g/dL (12.0-15.5); LYMPH # 1.2 x10^3/uL (1.0-4.8); LYMPH % 17 % (24-48); MEAN CORPUSCULAR HEMOGLOBIN 25 pg (25-35); MEAN CORPUSCULAR HGB CONC 32 g/dL (31-37); MEAN CORPUSCULAR VOLUME 78 fL (79-100); MONO % 9 % (0-9); NEUT % 69 % (31-73); PLATELET COUNT 263 x10^3/uL (140-400); RED BLOOD COUNT 3.29 x10^6/uL (3.50-5.40); RED CELL DISTRIBUTION WIDTH 17.4 % (11.5-14.5); WHITE BLOOD COUNT 6.9 x10^3/uL (4.0-11.0)
[2017-06-13 07:42] LABS: CALCIUM 8.9 mg/dL (8.5-10.1); CREATININE 0.7 mg/dL (0.6-1.0); GFR 88.2; POTASSIUM 3.8 mmol/L (3.5-5.1)
[2017-06-13] MEDS: FAMOTIDINE 20 MG/2 ML VIAL IVP SCH (08:27)
[2017-06-13] MEDS: LEVOTHYROXINE SODIUM 50 MCG in IV NORMAL SALINE 50ML 5 ML IVP SCH (08:27)
[2017-06-13] MEDS: PROCHLORPERAZINE 10 MG/2 ML VIAL. IV PRN ×2 (08:37→14:43)
--- NOTE | 2017-06-13 10:27 | PDOC ---
Subjective: Subjective: Using commode, asks for privacy but says feeling better and tolerating clears. Wants to see PT. Objective: Vital Signs: Vital Signs Date Time Temp Pulse Resp B/P (MAP) Pulse Ox O2 Delivery O2 Flow Rate FiO2 06/13/17 07:00 98.4 86 16 144/63 (90) 96 Nasal Cannula 2.0 98.4 Labs: Laboratory Tests Test 06/12/17 11:33 06/12/17 17:08 06/12/17 20:34 06/13/17 07:00 Glucose (Fingerstick) 125 mg/dL 130 mg/dL 140 mg/dL White Blood Count 6.9 x10^3/uL Red Blood Count 3.29 x10^6/uL Hemoglobin 8.2 g/dL Hematocrit 25.8 % Mean Corpuscular Volume 78 fL Mean Corpuscular Hemoglobin 25 pg Mean Corpuscular Hemoglobin Concent 32 g/dL Red Cell Distribution Width 17.4 % Platelet Count 263 x10^3/uL Neutrophils (%) (Auto) 69 % Lymphocytes (%) (Auto) 17 % Monocytes (%) (Auto) 9 % Eosinophils (%) (Auto) 5 % Basophils (%) (Auto) 0 % Neutrophils # (Auto) 4.8 x10^3uL Lymphocytes # (Auto) 1.2 x10^3/uL Monocytes # (Auto) 0.6 x10^3/uL Eosinophils # (Auto) 0.3 x10^3/uL Basophils # (Auto) 0.0 x10^3/uL Sodium Level 141 mmol/L Potassium Level 3.8 mmol/L Chloride Level 105 mmol/L Carbon Dioxide Level 27 mmol/L Anion Gap 9 Blood Urea Nitrogen 9 mg/dL Creatinine 0.7 mg/dL Estimated GFR (Cockcroft-Gault) 88.2 Glucose Level 147 mg/dL Calcium Level 8.9 mg/dL Test 06/13/17 07:25 Glucose (Fingerstick) 145 mg/dL PE: GEN: NAD, on commode NEURO/PSYCH: A & O 3 A/P: Multiple abd surg w/ complications -h/o diarrhea, weight loss -s/p excision of ECF, SEAN, ileocolonic resection, liver lac repair, VIH repair, debridement of abd wound 06/06/17 -on TPN, IV H2 presley -- Improved. Outpt SBS. Stop IV H2 presley. PEREZ MUÑOZ Jun 13, 2017 10:27
[2017-06-13] MEDS: TPN PER PHARMACY MC PRN (10:48)
[2017-06-13 10:51] VITALS: BP 134/78
[2017-06-13] MEDS: IV NORMAL SALINE 1000ML BAG 1,000 ML IV SCH (11:18)
--- NOTE | 2017-06-13 12:03 | PDOC ---
PULMONARY PROGRESS NOTES Subjective NO INCREASE SOA Vitals Vital Signs Date Time Temp Pulse Resp B/P (MAP) Pulse Ox O2 Delivery O2 Flow Rate FiO2 06/13/17 10:51 98.2 91 18 134/78 (96) 96 Nasal Cannula 2.0 98.2 General: Alert, No acute distress Lungs: Clear Cardiovascular: S1, S2 Abdomen: Soft, Other (OBESE) Neuro Exam: Alert Extremities: No Edema Skin: Warm Labs Laboratory Tests Test 06/11/17 16:05 06/11/17 21:28 06/12/17 04:01 06/12/17 07:57 Glucose (Fingerstick) 124 mg/dL (70-99) 132 mg/dL (70-99) 136 mg/dL (70-99) White Blood Count 6.1 x10^3/uL (4.0-11.0) Red Blood Count 2.86 x10^6/uL (3.50-5.40) Hemoglobin 7.2 g/dL (12.0-15.5) Hematocrit 22.3 % (36.0-47.0) Mean Corpuscular Volume 78 fL (79-100) Mean Corpuscular Hemoglobin 25 pg (25-35) Mean Corpuscular Hemoglobin Concent 32 g/dL (31-37) Red Cell Distribution Width 16.9 % (11.5-14.5) Platelet Count 211 x10^3/uL (140-400) Neutrophils (%) (Auto) 65 % (31-73) Lymphocytes (%) (Auto) 23 % (24-48) Monocytes (%) (Auto) 8 % (0-9) Eosinophils (%) (Auto) 4 % (0-3) Basophils (%) (Auto) 0 % (0-3) Neutrophils # (Auto) 3.9 x10^3uL (1.8-7.7) Lymphocytes # (Auto) 1.4 x10^3/uL (1.0-4.8) Monocytes # (Auto) 0.5 x10^3/uL (0.0-1.1) Eosinophils # (Auto) 0.3 x10^3/uL (0.0-0.7) Basophils # (Auto) 0.0 x10^3/uL (0.0-0.2) Sodium Level 141 mmol/L (136-145) Potassium Level 3.8 mmol/L (3.5-5.1) Chloride Level 105 mmol/L (98-107) Carbon Dioxide Level 28 mmol/L (21-32) Anion Gap 8 (6-14) Blood Urea Nitrogen 9 mg/dL (7-20) Creatinine 0.5 mg/dL (0.6-1.0) Estimated GFR (Cockcroft-Gault) 130.1 Glucose Level 127 mg/dL (70-99) Calcium Level 8.2 mg/dL (8.5-10.1) Phosphorus Level 4.9 mg/dL (2.6-4.7) Magnesium Level 1.9 mg/dL (1.8-2.4) Test 06/12/17 11:33 06/12/17 17:08 06/12/17 20:34 06/13/17 07:00 Glucose (Fingerstick) 125 mg/dL (70-99) 130 mg/dL (70-99) 140 mg/dL (70-99) White Blood Count 6.9 x10^3/uL (4.0-11.0) Red Blood Count 3.29 x10^6/uL (3.50-5.40) Hemoglobin 8.2 g/dL (12.0-15.5) Hematocrit 25.8 % (36.0-47.0) Mean Corpuscular Volume 78 fL (79-100) Mean Corpuscular Hemoglobin 25 pg (25-35) Mean Corpuscular Hemoglobin Concent 32 g/dL (31-37) Red Cell Distribution Width 17.4 % (11.5-14.5) Platelet Count 263 x10^3/uL (140-400) Neutrophils (%) (Auto) 69 % (31-73) Lymphocytes (%) (Auto) 17 % (24-48) Monocytes (%) (Auto) 9 % (0-9) Eosinophils (%) (Auto) 5 % (0-3) Basophils (%) (Auto) 0 % (0-3) Neutrophils # (Auto) 4.8 x10^3uL (1.8-7.7) Lymphocytes # (Auto) 1.2 x10^3/uL (1.0-4.8) Monocytes # (Auto) 0.6 x10^3/uL (0.0-1.1) Eosinophils # (Auto) 0.3 x10^3/uL (0.0-0.7) Basophils # (Auto) 0.0 x10^3/uL (0.0-0.2) Sodium Level 141 mmol/L (136-145) Potassium Level 3.8 mmol/L (3.5-5.1) Chloride Level 105 mmol/L (98-107) Carbon Dioxide Level 27 mmol/L (21-32) Anion Gap 9 (6-14) Blood Urea Nitrogen 9 mg/dL (7-20) Creatinine 0.7 mg/dL (0.6-1.0) Estimated GFR (Cockcroft-Gault) 88.2 Glucose Level 147 mg/dL (70-99) Calcium Level 8.9 mg/dL (8.5-10.1) Test 06/13/17 07:25 06/13/17 11:26 Glucose (Fingerstick) 145 mg/dL (70-99) 140 mg/dL (70-99) Laboratory Tests Test 06/12/17 17:08 06/12/17 20:34 06/13/17 07:00 06/13/17 07:25 Glucose (Fingerstick) 130 mg/dL (70-99) 140 mg/dL (70-99) 145 mg/dL (70-99) White Blood Count 6.9 x10^3/uL (4.0-11.0) Red Blood Count 3.29 x10^6/uL (3.50-5.40) Hemoglobin 8.2 g/dL (12.0-15.5) Hematocrit 25.8 % (36.0-47.0) Mean Corpuscular Volume 78 fL (79-100) Mean Corpuscular Hemoglobin 25 pg (25-35) Mean Corpuscular Hemoglobin Concent 32 g/dL (31-37) Red Cell Distribution Width 17.4 % (11.5-14.5) Platelet Count 263 x10^3/uL (140-400) Neutrophils (%) (Auto) 69 % (31-73) Lymphocytes (%) (Auto) 17 % (24-48) Monocytes (%) (Auto) 9 % (0-9) Eosinophils (%) (Auto) 5 % (0-3) Basophils (%) (Auto) 0 % (0-3) Neutrophils # (Auto) 4.8 x10^3uL (1.8-7.7) Lymphocytes # (Auto) 1.2 x10^3/uL (1.0-4.8) Monocytes # (Auto) 0.6 x10^3/uL (0.0-1.1) Eosinophils # (Auto) 0.3 x10^3/uL (0.0-0.7) Basophils # (Auto) 0.0 x10^3/uL (0.0-0.2) Sodium Level 141 mmol/L (136-145) Potassium Level 3.8 mmol/L (3.5-5.1) Chloride Level 105 mmol/L (98-107) Carbon Dioxide Level 27 mmol/L (21-32) Anion Gap 9 (6-14) Blood Urea Nitrogen 9 mg/dL (7-20) Creatinine 0.7 mg/dL (0.6-1.0) Estimated GFR (Cockcroft-Gault) 88.2 Glucose Level 147 mg/dL (70-99) Calcium Level 8.9 mg/dL (8.5-10.1) Test 06/13/17 11:26 Glucose (Fingerstick) 140 mg/dL (70-99) Medications Active Scripts Medications Dose Route/Sig Max Daily Dose Days Date Category Acetaminophen 500 Mg Tablet 650 Mg PO EVERY 6 HRS PRN 06/06/17 Reported Diphenhydramine Hcl 50 Mg Capsule 1 Cap PO EVERY 4 HRS PRN 06/06/17 Reported Lorazepam 0.5 Mg Tablet 1 Tab PO EVERY 6 HRS PRN 06/06/17 Reported Trazodone Hcl 300 Mg Tablet 400 Mg PO HS 06/06/17 Reported Heparin 10 Unit/10 Ml (1/Ml) (Heparin Sodium,Porcine/Pf) 1 Unit/1 Ml Disp.syrin 5,000 Unit SUBCUT/PO EVERY 8 HRS 06/06/17 Reported Promethazine Hcl 6.25 Mg/5 Ml Syrup 5 Ml IV TID PRN PRN 06/06/17 Reported Levothyroxine Sodium 100 Mcg Tablet 100 Mcg IV HS 06/06/17 Reported Escitalopram Oxalate 5 Mg Tablet 20 Mg PO DAILY 06/06/17 Reported Pantoprazole Sodium 40 Mg Tablet. 1 Tab PO IV 06/06/17 Reported Tpn Electrolytes Ii Iv Soln (Sodium/K+/Mag/Ca/Chlor/Acetate) 20 Ml Vial 20 Ml IV 06/06/17 Reported FENTANYL 25mcg/hr (Fentanyl) 1 Each Patch.td72 1 Patch TP Q3DAYS 06/06/17 Reported Hydromorphone Hcl 4 Mg Tablet 1 Tab IV QIDPRN PRN 06/06/17 Reported Hydromorphone Hcl 4 Mg Tablet 2 Mg PO 06/06/17 Reported Impression . 1. Acute respiratory failure, expected status post extensive surgery to the abdomen in a morbid obese individual with multiple comorbidities.(Exploratory laparotomy, extensive lysis of adhesions, Excision of enterocutaneous fistula, ileocolic resection, liver laceration repair, ventral incisional hernia repair, debridement of abdominal wall wound) 2. Hypertension. 3. Diabetes. 4. Peripheral neuropathy. 5. Anxiety and depression. 6. History of deep venous thrombosis. 7. Endometrial cancer. 8. Prior history of esophageal injury with peritonitis. Plan . ON TPN ADVANCE DIET PER SURGERY EXTUBATED 06/08 RESP STATUS COMPENSATED 02 FOR NOW 6 MIN WALK PRIOR TO D/C POST OP CARE FOLLOW GI INPUT DVT /GI PROPH KARMEN JOHNSON MD Jun 13, 2017 12:03
--- NOTE | 2017-06-13 12:42 | DISCH ---
DISCHARGE DISCHARGE DATE: Jun 13, 2017 FINAL DIAGNOSIS [facility] CONDITION ON DISCHARGE: Stable SNF STAY <30 DAYS: No PT. HAS FUNCTIONAL LIMITATIONS: Yes ADMIT TO LTAC: Yes POST DISCHARGE ORDERS ACTIVITY ORDERS: Activity as tolerated, Other, see below (no lifting >20lbs) BATHING ORDERS: Shower-keep dressing dry DIET AFTER DISCHARGE: advance diet at tolerated, TPN until tolerating diet and adequate intake OTHER WOUND INSTRUCTIONS: dry dressing change to abdominal wound, wear abdominal binder FOLLOW-UP PHYSICIAN FOLLOW-UP: FU with Dr Rachel 1-2 weeks, call to schedule [phone] LOUANN SECOTO MIRROR FABRICATION SUPERVISOR Jun 13, 2017 12:42
--- NOTE | 2017-06-13 12:45 | PDOC ---
SURGICAL PROGRESS NOTE Subjective tolerating liquids, did not feel like advancing yet worried about pain control Vital Signs Vital Signs Date Time Temp Pulse Resp B/P (MAP) Pulse Ox O2 Delivery O2 Flow Rate FiO2 06/13/17 10:51 98.2 91 18 134/78 (96) 96 Nasal Cannula 2.0 98.2 I&O Intake and Output 06/13/17 07:00 Intake Total 2516 ml Output Total 2000 ml Balance 516 ml Intake Oral 400 ml IV Total 1056 ml Other 1060 ml Urine/Stool Mix 2000 ml # Voids 5 General: Alert, Oriented X3, Cooperative, No acute distress Abdomen: Soft, Other (wound mid dehis, susan removed ) Labs Laboratory Tests Test 06/11/17 16:05 06/11/17 21:28 06/12/17 04:01 06/12/17 07:57 Glucose (Fingerstick) 124 mg/dL (70-99) 132 mg/dL (70-99) 136 mg/dL (70-99) White Blood Count 6.1 x10^3/uL (4.0-11.0) Red Blood Count 2.86 x10^6/uL (3.50-5.40) Hemoglobin 7.2 g/dL (12.0-15.5) Hematocrit 22.3 % (36.0-47.0) Mean Corpuscular Volume 78 fL (79-100) Mean Corpuscular Hemoglobin 25 pg (25-35) Mean Corpuscular Hemoglobin Concent 32 g/dL (31-37) Red Cell Distribution Width 16.9 % (11.5-14.5) Platelet Count 211 x10^3/uL (140-400) Neutrophils (%) (Auto) 65 % (31-73) Lymphocytes (%) (Auto) 23 % (24-48) Monocytes (%) (Auto) 8 % (0-9) Eosinophils (%) (Auto) 4 % (0-3) Basophils (%) (Auto) 0 % (0-3) Neutrophils # (Auto) 3.9 x10^3uL (1.8-7.7) Lymphocytes # (Auto) 1.4 x10^3/uL (1.0-4.8) Monocytes # (Auto) 0.5 x10^3/uL (0.0-1.1) Eosinophils # (Auto) 0.3 x10^3/uL (0.0-0.7) Basophils # (Auto) 0.0 x10^3/uL (0.0-0.2) Sodium Level 141 mmol/L (136-145) Potassium Level 3.8 mmol/L (3.5-5.1) Chloride Level 105 mmol/L (98-107) Carbon Dioxide Level 28 mmol/L (21-32) Anion Gap 8 (6-14) Blood Urea Nitrogen 9 mg/dL (7-20) Creatinine 0.5 mg/dL (0.6-1.0) Estimated GFR (Cockcroft-Gault) 130.1 Glucose Level 127 mg/dL (70-99) Calcium Level 8.2 mg/dL (8.5-10.1) Phosphorus Level 4.9 mg/dL (2.6-4.7) Magnesium Level 1.9 mg/dL (1.8-2.4) Test 06/12/17 11:33 06/12/17 17:08 06/12/17 20:34 06/13/17 07:00 Glucose (Fingerstick) 125 mg/dL (70-99) 130 mg/dL (70-99) 140 mg/dL (70-99) White Blood Count 6.9 x10^3/uL (4.0-11.0) Red Blood Count 3.29 x10^6/uL (3.50-5.40) Hemoglobin 8.2 g/dL (12.0-15.5) Hematocrit 25.8 % (36.0-47.0) Mean Corpuscular Volume 78 fL (79-100) Mean Corpuscular Hemoglobin 25 pg (25-35) Mean Corpuscular Hemoglobin Concent 32 g/dL (31-37) Red Cell Distribution Width 17.4 % (11.5-14.5) Platelet Count 263 x10^3/uL (140-400) Neutrophils (%) (Auto) 69 % (31-73) Lymphocytes (%) (Auto) 17 % (24-48) Monocytes (%) (Auto) 9 % (0-9) Eosinophils (%) (Auto) 5 % (0-3) Basophils (%) (Auto) 0 % (0-3) Neutrophils # (Auto) 4.8 x10^3uL (1.8-7.7) Lymphocytes # (Auto) 1.2 x10^3/uL (1.0-4.8) Monocytes # (Auto) 0.6 x10^3/uL (0.0-1.1) Eosinophils # (Auto) 0.3 x10^3/uL (0.0-0.7) Basophils # (Auto) 0.0 x10^3/uL (0.0-0.2) Sodium Level 141 mmol/L (136-145) Potassium Level 3.8 mmol/L (3.5-5.1) Chloride Level 105 mmol/L (98-107) Carbon Dioxide Level 27 mmol/L (21-32) Anion Gap 9 (6-14) Blood Urea Nitrogen 9 mg/dL (7-20) Creatinine 0.7 mg/dL (0.6-1.0) Estimated GFR (Cockcroft-Gault) 88.2 Glucose Level 147 mg/dL (70-99) Calcium Level 8.9 mg/dL (8.5-10.1) Test 06/13/17 07:25 06/13/17 11:26 Glucose (Fingerstick) 145 mg/dL (70-99) 140 mg/dL (70-99) Laboratory Tests Test 06/12/17 17:08 06/12/17 20:34 06/13/17 07:00 06/13/17 07:25 Glucose (Fingerstick) 130 mg/dL (70-99) 140 mg/dL (70-99) 145 mg/dL (70-99) White Blood Count 6.9 x10^3/uL (4.0-11.0) Red Blood Count 3.29 x10^6/uL (3.50-5.40) Hemoglobin 8.2 g/dL (12.0-15.5) Hematocrit 25.8 % (36.0-47.0) Mean Corpuscular Volume 78 fL (79-100) Mean Corpuscular Hemoglobin 25 pg (25-35) Mean Corpuscular Hemoglobin Concent 32 g/dL (31-37) Red Cell Distribution Width 17.4 % (11.5-14.5) Platelet Count 263 x10^3/uL (140-400) Neutrophils (%) (Auto) 69 % (31-73) Lymphocytes (%) (Auto) 17 % (24-48) Monocytes (%) (Auto) 9 % (0-9) Eosinophils (%) (Auto) 5 % (0-3) Basophils (%) (Auto) 0 % (0-3) Neutrophils # (Auto) 4.8 x10^3uL (1.8-7.7) Lymphocytes # (Auto) 1.2 x10^3/uL (1.0-4.8) Monocytes # (Auto) 0.6 x10^3/uL (0.0-1.1) Eosinophils # (Auto) 0.3 x10^3/uL (0.0-0.7) Basophils # (Auto) 0.0 x10^3/uL (0.0-0.2) Sodium Level 141 mmol/L (136-145) Potassium Level 3.8 mmol/L (3.5-5.1) Chloride Level 105 mmol/L (98-107) Carbon Dioxide Level 27 mmol/L (21-32) Anion Gap 9 (6-14) Blood Urea Nitrogen 9 mg/dL (7-20) Creatinine 0.7 mg/dL (0.6-1.0) Estimated GFR (Cockcroft-Gault) 88.2 Glucose Level 147 mg/dL (70-99) Calcium Level 8.9 mg/dL (8.5-10.1) Test 06/13/17 11:26 Glucose (Fingerstick) 140 mg/dL (70-99) Assessment/Plan s/p xlap work toward return to her facility will send on TPN, until nutrition improved 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
[2017-06-13] MEDS: diphenhydrAMINE 50 MG/ML VIAL IVP PRN (13:02)
[2017-06-13] MEDS: oxyCODONE/APAP 5/325 1 TAB TABLET PO PRN ×2 (13:03→18:13)
[2017-06-13] MEDS ORDERED: ALTEPLASE 2 MG VIAL INT CAT ONE (13:30)
[2017-06-13] MEDS: ENOXAPARIN 40 MG/0.4 ML SYRINGE. SQ SCH (14:46)
--- NOTE | 2017-06-13 14:47 | PDOC ---
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 INSTALLER day 3 HTN, controlled HLD DM controlled Peripheral neuropathy Anxiety/depression NOS DVT hx Endometrial cancer Cholecystectomy Hiatal hernia repair with esophageal injury and peritonitis Umbilical hernia repair Bowel obstruction with mesh/complications of fistula Hysterectomy chronic abd pain with fentanyl patch 125mcg plan: fu with sx, pulm sx wound care clear liquid diet for now, fu with sx for advance diet dc Ringers on TPN add albuterol prn cont 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 She is out of the ICU and was seen today at bedside. She was resting comfortably in NAD. Pt is on TPN and abx. Her nichols catheter has been removed. Continue O2 per nasal canula and PLATE GLASS INSTALLER pump. Will continue wound care. Pt is being followed by GI and pulmonology. Will continue to monitor. Discharge disposition pending- [facility]. ROS: NO FEVER, chills, sob or chest pain on NC 2 L, some exertional sob required PLATE GLASS INSTALLER a lot , 0.3mg q10min has flatus, BM post op clear liquid 06/11 Vitals Vitals Vital Signs Date Time Temp Pulse Resp B/P (MAP) Pulse Ox O2 Delivery O2 Flow Rate FiO2 06/13/17 13:03 96 Nasal Cannula 2.0 06/13/17 10:51 98.2 91 18 134/78 (96) 98.2 Physical Exam General: Alert, Oriented X3, Cooperative, No acute distress Heart: Regular rate, Normal S1, Normal S2, No murmurs Lungs: Clear Abdomen: Soft, Other (wound mid dehis, susan removed ) Extremities: No clubbing, No cyanosis Skin: No rashes, No breakdown Labs LABS Laboratory Tests Test 06/12/17 17:08 06/12/17 20:34 06/13/17 07:00 06/13/17 07:25 Glucose (Fingerstick) 130 mg/dL (70-99) 140 mg/dL (70-99) 145 mg/dL (70-99) White Blood Count 6.9 x10^3/uL (4.0-11.0) Red Blood Count 3.29 x10^6/uL (3.50-5.40) Hemoglobin 8.2 g/dL (12.0-15.5) Hematocrit 25.8 % (36.0-47.0) Mean Corpuscular Volume 78 fL (79-100) Mean Corpuscular Hemoglobin 25 pg (25-35) Mean Corpuscular Hemoglobin Concent 32 g/dL (31-37) Red Cell Distribution Width 17.4 % (11.5-14.5) Platelet Count 263 x10^3/uL (140-400) Neutrophils (%) (Auto) 69 % (31-73) Lymphocytes (%) (Auto) 17 % (24-48) Monocytes (%) (Auto) 9 % (0-9) Eosinophils (%) (Auto) 5 % (0-3) Basophils (%) (Auto) 0 % (0-3) Neutrophils # (Auto) 4.8 x10^3uL (1.8-7.7) Lymphocytes # (Auto) 1.2 x10^3/uL (1.0-4.8) Monocytes # (Auto) 0.6 x10^3/uL (0.0-1.1) Eosinophils # (Auto) 0.3 x10^3/uL (0.0-0.7) Basophils # (Auto) 0.0 x10^3/uL (0.0-0.2) Sodium Level 141 mmol/L (136-145) Potassium Level 3.8 mmol/L (3.5-5.1) Chloride Level 105 mmol/L (98-107) Carbon Dioxide Level 27 mmol/L (21-32) Anion Gap 9 (6-14) Blood Urea Nitrogen 9 mg/dL (7-20) Creatinine 0.7 mg/dL (0.6-1.0) Estimated GFR (Cockcroft-Gault) 88.2 Glucose Level 147 mg/dL (70-99) Calcium Level 8.9 mg/dL (8.5-10.1) Test 06/13/17 11:26 Glucose (Fingerstick) 140 mg/dL (70-99) Comment Review of Relevant I have reviewed the following items radha (where applicable) has been applied. Labs Laboratory Tests Test 06/11/17 16:05 06/11/17 21:28 06/12/17 04:01 06/12/17 07:57 Glucose (Fingerstick) 124 mg/dL (70-99) 132 mg/dL (70-99) 136 mg/dL (70-99) White Blood Count 6.1 x10^3/uL (4.0-11.0) Red Blood Count 2.86 x10^6/uL (3.50-5.40) Hemoglobin 7.2 g/dL (12.0-15.5) Hematocrit 22.3 % (36.0-47.0) Mean Corpuscular Volume 78 fL (79-100) Mean Corpuscular Hemoglobin 25 pg (25-35) Mean Corpuscular Hemoglobin Concent 32 g/dL (31-37) Red Cell Distribution Width 16.9 % (11.5-14.5) Platelet Count 211 x10^3/uL (140-400) Neutrophils (%) (Auto) 65 % (31-73) Lymphocytes (%) (Auto) 23 % (24-48) Monocytes (%) (Auto) 8 % (0-9) Eosinophils (%) (Auto) 4 % (0-3) Basophils (%) (Auto) 0 % (0-3) Neutrophils # (Auto) 3.9 x10^3uL (1.8-7.7) Lymphocytes # (Auto) 1.4 x10^3/uL (1.0-4.8) Monocytes # (Auto) 0.5 x10^3/uL (0.0-1.1) Eosinophils # (Auto) 0.3 x10^3/uL (0.0-0.7) Basophils # (Auto) 0.0 x10^3/uL (0.0-0.2) Sodium Level 141 mmol/L (136-145) Potassium Level 3.8 mmol/L (3.5-5.1) Chloride Level 105 mmol/L (98-107) Carbon Dioxide Level 28 mmol/L (21-32) Anion Gap 8 (6-14) Blood Urea Nitrogen 9 mg/dL (7-20) Creatinine 0.5 mg/dL (0.6-1.0) Estimated GFR (Cockcroft-Gault) 130.1 Glucose Level 127 mg/dL (70-99) Calcium Level 8.2 mg/dL (8.5-10.1) Phosphorus Level 4.9 mg/dL (2.6-4.7) Magnesium Level 1.9 mg/dL (1.8-2.4) Test 06/12/17 11:33 06/12/17 17:08 06/12/17 20:34 06/13/17 07:00 Glucose (Fingerstick) 125 mg/dL (70-99) 130 mg/dL (70-99) 140 mg/dL (70-99) White Blood Count 6.9 x10^3/uL (4.0-11.0) Red Blood Count 3.29 x10^6/uL (3.50-5.40) Hemoglobin 8.2 g/dL (12.0-15.5) Hematocrit 25.8 % (36.0-47.0) Mean Corpuscular Volume 78 fL (79-100) Mean Corpuscular Hemoglobin 25 pg (25-35) Mean Corpuscular Hemoglobin Concent 32 g/dL (31-37) Red Cell Distribution Width 17.4 % (11.5-14.5) Platelet Count 263 x10^3/uL (140-400) Neutrophils (%) (Auto) 69 % (31-73) Lymphocytes (%) (Auto) 17 % (24-48) Monocytes (%) (Auto) 9 % (0-9) Eosinophils (%) (Auto) 5 % (0-3) Basophils (%) (Auto) 0 % (0-3) Neutrophils # (Auto) 4.8 x10^3uL (1.8-7.7) Lymphocytes # (Auto) 1.2 x10^3/uL (1.0-4.8) Monocytes # (Auto) 0.6 x10^3/uL (0.0-1.1) Eosinophils # (Auto) 0.3 x10^3/uL (0.0-0.7) Basophils # (Auto) 0.0 x10^3/uL (0.0-0.2) Sodium Level 141 mmol/L (136-145) Potassium Level 3.8 mmol/L (3.5-5.1) Chloride Level 105 mmol/L (98-107) Carbon Dioxide Level 27 mmol/L (21-32) Anion Gap 9 (6-14) Blood Urea Nitrogen 9 mg/dL (7-20) Creatinine 0.7 mg/dL (0.6-1.0) Estimated GFR (Cockcroft-Gault) 88.2 Glucose Level 147 mg/dL (70-99) Calcium Level 8.9 mg/dL (8.5-10.1) Test 06/13/17 07:25 06/13/17 11:26 Glucose (Fingerstick) 145 mg/dL (70-99) 140 mg/dL (70-99) Laboratory Tests Test 06/12/17 17:08 06/12/17 20:34 06/13/17 07:00 06/13/17 07:25 Glucose (Fingerstick) 130 mg/dL (70-99) 140 mg/dL (70-99) 145 mg/dL (70-99) White Blood Count 6.9 x10^3/uL (4.0-11.0) Red Blood Count 3.29 x10^6/uL (3.50-5.40) Hemoglobin 8.2 g/dL (12.0-15.5) Hematocrit 25.8 % (36.0-47.0) Mean Corpuscular Volume 78 fL (79-100) Mean Corpuscular Hemoglobin 25 pg (25-35) Mean Corpuscular Hemoglobin Concent 32 g/dL (31-37) Red Cell Distribution Width 17.4 % (11.5-14.5) Platelet Count 263 x10^3/uL (140-400) Neutrophils (%) (Auto) 69 % (31-73) Lymphocytes (%) (Auto) 17 % (24-48) Monocytes (%) (Auto) 9 % (0-9) Eosinophils (%) (Auto) 5 % (0-3) Basophils (%) (Auto) 0 % (0-3) Neutrophils # (Auto) 4.8 x10^3uL (1.8-7.7) Lymphocytes # (Auto) 1.2 x10^3/uL (1.0-4.8) Monocytes # (Auto) 0.6 x10^3/uL (0.0-1.1) Eosinophils # (Auto) 0.3 x10^3/uL (0.0-0.7) Basophils # (Auto) 0.0 x10^3/uL (0.0-0.2) Sodium Level 141 mmol/L (136-145) Potassium Level 3.8 mmol/L (3.5-5.1) Chloride Level 105 mmol/L (98-107) Carbon Dioxide Level 27 mmol/L (21-32) Anion Gap 9 (6-14) Blood Urea Nitrogen 9 mg/dL (7-20) Creatinine 0.7 mg/dL (0.6-1.0) Estimated GFR (Cockcroft-Gault) 88.2 Glucose Level 147 mg/dL (70-99) Calcium Level 8.9 mg/dL (8.5-10.1) Test 06/13/17 11:26 Glucose (Fingerstick) 140 mg/dL (70-99) Medications Current Medications Ondansetron HCl (Zofran) 4 mg PRN Q6HRS PRN IV NAUSEA/VOMITING Last administered on 06/07/17 03:59; Start 06/06/17 at 07:00; Stop 06/07/17 at 06:59 ; Status DC Fentanyl Citrate (Fentanyl 2ml Vial) 25 mcg PRN Q5MIN PRN IV MILD PAIN; Start 06/06/17 at 07:00; Stop 06/07/17 at 06:59; Status DC Fentanyl Citrate (Fentanyl 2ml Vial) 50 mcg PRN Q5MIN PRN IV MODERATE PAIN Last administered on 06/06/17 16:11; Start 06/06/17 at 07:00; Stop 06/07/17 at 06:59; Status DC Morphine Sulfate 1 mg PRN Q10MIN PRN IV SEVERE PAIN Last administered on 16:51; Start 06/06/17 at 07:00; Stop 06/07/17 at 06:59; Status DC Ringer's Solution 1,000 ml @ 0 mls/hr Q0M IV Last administered on 06/06/17 07 :32; Start 06/06/17 at 07:00; Stop 06/06/17 at 18:59; Status DC Lidocaine HCl (Xylocaine-Mpf 1% Vial) 2 ml PRN 1X PRN ID PRIOR TO IV START; Start 06/06/17 at 07:00; Stop 06/07/17 at 06:59; Status DC Hydromorphone HCl (Dilaudid) 0.5 mg PRN Q10MIN PRN IV SEV PAIN, Second choice; Start 06/06/17 at 07:00; Stop 06/07/17 at 06:59; Status DC Prochlorperazine Edisylate (Compazine) 5 mg PACU PRN PRN IV NAUSEA, MRX1 Last administered on 06/06/17t 18:12; Start 06/06/17 at 07:00; Stop 06/07/17 at 06:59 ; Status DC Cefoxitin Sodium 50 ml @ As Directed STK-MED ONCE IV ; Start 06/06/17 at 07:20; Stop 06/06/17 at 07:21; Status DC Rocuronium [place] (Zemuron) 50 mg STK-MED ONCE .ROUTE ; Start 06/06/17 at 07:38 ; Stop 06/06/17 at 07:39; Status DC Midazolam HCl (Versed) 2 mg STK-MED ONCE .ROUTE ; Start 06/06/17 at 07:38; Stop 06/06/17 at 07:39; Status DC Fentanyl Citrate (Fentanyl 5ml Vial) 250 mcg STK-MED ONCE .ROUTE ; Start at 07:38; Stop 06/06/17 at 07:39; Status DC Propofol 20 ml @ As Directed STK-MED ONCE IV ; Start 06/06/17 at 07:38; Stop at 07:39; Status DC Lidocaine HCl (Lidocaine Pf 2% Vial) 5 ml STK-MED ONCE .ROUTE ; Start 06/06/17 at 07:38; Stop 06/06/17 at 07:39; Status DC Levofloxacin/ Dextrose 150 ml @ As Directed STK-MED ONCE IV ; Start 06/06/17 at 08:05; Stop 06/06/17 at 08:06; Status DC Levofloxacin/ Dextrose 150 ml @ 0 mls/hr 1X ONCE IV Last administered on t 08:33; Start 06/06/17 at 08:15; Stop 06/06/17 at 08:16; Status DC Sevoflurane (Ultane) 90 ml STK-MED ONCE IH ; Start 06/06/17 at 09:04; Stop 06/06 at 09:05; Status DC Cellulose 1 each STK-MED ONCE .ROUTE ; Start 06/06/17 at 09:06; Stop 06/06/17 at 09:07; Status DC Cellulose 1 each STK-MED ONCE TP Last administered on 06/06/17 09:07; Start 06/06/17 at 09:07; Stop 06/06/17 at 09:10; Status DC Rocuronium [place] (Zemuron) 100 mg STK-MED ONCE .ROUTE ; Start 06/06/17 at 09: 08; Stop 06/06/17 at 09:09; Status DC Fentanyl Citrate (Fentanyl 5ml Vial) 250 mcg STK-MED ONCE .ROUTE ; Start at 12:38; Stop 06/06/17 at 12:39; Status DC Albumin Human 500 ml @ As Directed STK-MED ONCE IV ; Start 06/06/17 at 13:36; Stop 06/06/17 at 13:37; Status DC Neostigmine Methylsulfate (Bloxiverz) 10 mg STK-MED ONCE .ROUTE ; Start at 13:57; Stop 06/06/17 at 13:58; Status DC Glycopyrrolate (Robinul) 1 mg STK-MED ONCE .ROUTE ; Start 06/06/17 at 13:57; Stop 06/06/17 at 13:58; Status DC Enoxaparin Sodium (Lovenox 40mg Syringe) 40 mg Q24H SQ Last administered on 14:55; Start 06/06/17 at 15:00 Sodium Chloride (Normal Saline Flush) 3 ml QSHIFT PRN IV AFTER MEDS AND BLOOD DRAWS; Start 06/06/17 at 14:45 Ringer's Solution 1,000 ml @ 50 mls/hr Q20H IV Last administered on 09:40; Start 06/06/17 at 14:41; Stop 06/12/17 at 11:28; Status DC Naloxone HCl (Narcan) 0.4 mg PRN Q2MIN PRN IV SEE INSTRUCTIONS; Start 06/06/17 at 14:45; Stop 06/07/17 at 13:45; Status DC Sodium Chloride 1,000 ml @ 25 mls/hr Q24H IV ; Start 06/06/17 at 14:41; Stop 06/07/17 at 13:44; Status DC Morphine Sulfate 30 ml @ 0 mls/hr CONT PRN PRN IV PROTOCOL Last administered on 06/06/17 16:15; Start 06/06/17 at 14:45; Stop 06/08/17 at 09:57; Status DC Levofloxacin/ Dextrose 150 ml @ 100 mls/hr Q24H IV Last administered on 08:27; Start 06/07/17 at 08:00 Midazolam HCl (Versed) 2 mg PRN Q1HR PRN IV SEDATION PT ON VENT; Start at 19:00; Stop 06/07/17 at 13:44; Status DC Propofol 100 ml @ 0 mls/hr CONT PRN IV SEE I/O RECORD Last administered on 06/07 03:17; Start 06/06/17 at 19:00; Stop 06/09/17 at 09:50; Status DC Chlorhexidine Gluconate (Peridex) 15 ml BID SWSP Last administered on 08:32; Start 06/06/17 at 21:00; Stop 06/07/17 at 13:44; Status DC Naloxone HCl (Narcan) 0.4 mg PRN Q2MIN PRN IV SEE INSTRUCTIONS; Start 06/07/17 at 11:30; Stop 06/10/17 at 02:07; Status DC Sodium Chloride 1,000 ml @ 25 mls/hr Q24H IV Last administered on 06/12/17 08:51; Start 06/07/17 at 11:18 Hydromorphone HCl 30 ml @ 0 mls/hr CONT PRN PRN IV PROTOCOL Last administered on 06/09/17 09:54; Start 06/07/17 at 11:30; Stop 06/09/17 at 22:32; Status DC Alteplase, Recombinant (Cathflo) 2 mg 1X ONCE INT CAT Last administered on 14:09; Start 06/07/17 at 12:30; Stop 06/07/17 at 12:31; Status DC Lorazepam (Ativan) 0.5 mg PRN Q6HRS PRN IV ANXIETY / AGITATION Last administered on 06/13/17 01:20; Start 06/07/17 at 17:45 Prochlorperazine Edisylate (Compazine) 10 mg PRN Q6HRS PRN IV NAUSEA/VOMITING Last administered on 06/13/17 08:37; Start 06/07/17 at 22:45 Info 1 each PRN DAILY PRN MC SEE COMMENTS Last administered on 06/13/17 10:48 ; Start 06/08/17 at 13:30 Sodium Chloride 90 meq/Potassium Chloride 50 meq/ Potassium Phosphate 13.6 mmol/ Magnesium Sulfate 10 meq/ Calcium Gluconate 10 meq/ Multivitamins 10 ml/Chromium / Copper/Manganese/ Seleni/Zn 1 ml/ Total Parenteral Nutrition/Amino Acids/ Dextrose/ Fat Emulsion Intravenous 1,512 ml @ 63 mls/hr TPN CONT IV Last administered on 06/08/17 22:56; Start 06/08/17 at 22:00; Stop 06/09/17 at 21: 59; Status DC Magnesium Sulfate/ Dextrose 50 ml @ 25 mls/hr 1X ONCE IV Last administered on 06/08/17 14:45; Start 06/08/17 at 14:00; Stop 06/08/17 at 15:59; Status DC Alteplase, Recombinant (Cathflo) 2 mg 1X ONCE INT CAT Last administered on 10:00; Start 06/09/17 at 08:45; Stop 06/09/17 at 08:46; Status DC Famotidine (Pepcid Vial) 20 mg BID IVP Last administered on 06/13/17 08:27; Start 06/09/17 at 10:30; Stop 06/13/17 at 10:28; Status DC Fentanyl (Duragesic 25mcg/ Hr Patch) 1 patch Q3DAYS TD ; Start 06/09/17 at 10: 30; Stop 06/09/17 at 12:29; Status DC Levothyroxine Sodium 50 mcg/ Sodium Chloride 5 ml @ 100 mls/hr DAILY IVP Last administered on 06/13/17 08:27; Start 06/09/17 at 10:30 Diphenhydramine HCl (Benadryl) 25 mg PRN QHS PRN IVP sleep Last administered on 06/13/17 13:02; Start 06/09/17 at 10:00 Sodium Chloride 90 meq/Potassium Chloride 50 meq/ Potassium Phosphate 20.4 mmol/ Magnesium Sulfate 20 meq/ Calcium Gluconate 10 meq/ Multivitamins 10 ml/Chromium / Copper/Manganese/ Seleni/Zn 1 ml/ Total Parenteral Nutrition/Amino Acids/ Dextrose/ Fat Emulsion Intravenous 1,512 ml @ 63 mls/hr TPN CONT IV Last administered on 06/09/17 23:28; Start 06/09/17 at 22:00; Stop 06/10/17 at 21 :59; Status DC Hydromorphone HCl (Dilaudid) 1 mg PRN Q3HRS PRN IV SEVERE PAIN Last administered on 06/10/17 00:16; Start 06/09/17 at 22:45; Stop 06/10/17 at 02 :07; Status DC Ketorolac Tromethamine (Toradol) 15 mg 1X ONCE IV ; Start 06/10/17 at 02:30; Stop 06/10/17 at 02:31; Status DC Naloxone HCl (Narcan) 0.4 mg PRN Q2MIN PRN IV SEE INSTRUCTIONS; Start at 02:00 Hydromorphone HCl 30 ml @ 0 mls/hr CONT PRN PRN IV PROTOCOL Last administered on 06/13/17 05:42; Start 06/10/17 at 02:00; Stop 06/13/17 at 12:39; Status DC Potassium Chloride 50 ml @ 50 mls/hr Q1H IV Last administered on 06/10/17 14: 17; Start 06/10/17 at 13:00; Stop 06/10/17 at 14:59; Status DC Sodium Chloride 90 meq/Potassium Chloride 70 meq/ Potassium Phosphate 20.4 mmol/ Magnesium Sulfate 20 meq/ Calcium Gluconate 10 meq/ Multivitamins 10 ml/Chromium / Copper/Manganese/ Seleni/Zn 1 ml/ Total Parenteral Nutrition/Amino Acids/ Dextrose/ Fat Emulsion Intravenous 1,512 ml @ 63 mls/hr TPN CONT IV Last administered on 06/10/17 22:05; Start 06/10/17 at 22:00; Stop 06/11/17 at 21 :59; Status DC Magnesium Sulfate/ Dextrose 100 ml @ 100 mls/hr 1X ONCE IV Last administered on 06/10/17 15:27; Start 06/10/17 at 13:30; Stop 06/10/17 at 14:29; Status DC Throat Lozenges (Chloraseptic) 1 spray PRN Q2HR PRN PO SORE THROAT Last administered on 06/11/17 00:54; Start 06/10/17 at 22:45 Sodium Chloride 90 meq/Potassium Chloride 70 meq/ Potassium Phosphate 20.4 mmol/ Magnesium Sulfate 20 meq/ Calcium Gluconate 10 meq/ Multivitamins 10 ml/Chromium / Copper/Manganese/ Seleni/Zn 1 ml/ Total Parenteral Nutrition/Amino Acids/ Dextrose/ Fat Emulsion Intravenous 1,512 ml @ 63 mls/hr TPN CONT IV Last administered on 06/11/17 21:27; Start 06/11/17 at 22:00; Stop 06/12/17 at 21 :59; Status DC Albuterol Sulfate (Ventolin Neb Soln) 2.5 mg PRN Q4HRS PRN NEB SHORTNESS OF BREATH; Start 06/12/17 at 11:30 Fentanyl (Duragesic 100mcg/Hr Patch) 1 patch Q3DAYS TD Last administered on 12:06; Start 06/12/17 at 12:00 Fentanyl (Duragesic 25mcg/ Hr Patch) 1 patch Q3DAYS TD Last administered on 12:06; Start 06/12/17 at 12:00 Sodium Chloride 90 meq/Potassium Chloride 70 meq/ Potassium Phosphate 13.6 mmol/ Magnesium Sulfate 20 meq/ Calcium Gluconate 10 meq/ Multivitamins 10 ml/Chromium / Copper/Manganese/ Seleni/Zn 1 ml/ Total Parenteral Nutrition/Amino Acids/ Dextrose/ Fat Emulsion Intravenous 1,512 ml @ 63 mls/hr TPN CONT IV Last administered on 06/12/17 22:14; Start 06/12/17 at 22:00; Stop 06/13/17 at 21 :59 Acetaminophen (Tylenol) 650 mg PRN Q6HRS PRN PO FEVER; Start 06/12/17 at 14:15 Ondansetron HCl (Zofran) 4 mg PRN Q6HRS PRN IV NAUSEA/VOMITING; Start at 14:15 Morphine Sulfate 2 mg PRN Q2HR PRN IV PAIN; Start 06/12/17 at 14:15 Tramadol HCl (Ultram) 50 mg PRN Q6HRS PRN PO PAIN; Start 06/12/17 at 14:15 Hydralazine HCl (Apresoline Inj) 10 mg PRN Q4HRS PRN IVP ELEVATED BP, SEE COMMENTS; Start 06/12/17 at 14:15 Docusate Sodium (Colace) 100 mg PRN DAILY PRN PO CONSTIPATION; Start 06/12/17 at 14:15 Famotidine (Pepcid) 20 mg QHS PO ; Start 06/13/17 at 21:00 Sodium Chloride 90 meq/Potassium Chloride 70 meq/ Potassium Phosphate 13.6 mmol/ Magnesium Sulfate 20 meq/ Calcium Gluconate 10 meq/ Multivitamins 10 ml/Chromium / Copper/Manganese/ Seleni/Zn 1 ml/ Total Parenteral Nutrition/Amino Acids/ Dextrose/ Fat Emulsion Intravenous 1,512 ml @ 63 mls/hr TPN CONT IV ; Start 06/13/17 at 22:00; Stop 06/14/17 at 21:59 Oxycodone/ Acetaminophen (Percocet 5/325) 2 tab PRN Q4HRS PRN PO PAIN Last administered on 06/13/17t 13:03; Start 06/13/17 at 12:45 Alteplase, Recombinant (Cathflo) 2 mg 1X ONCE INT CAT ; Start 06/13/17 at 13: 30; Stop 06/13/17 at 13:31; Status DC Active Scripts Active Reported Acetaminophen 500 Mg Tablet 650 Mg PO EVERY 6 HRS PRN Diphenhydramine Hcl 50 Mg Capsule 1 Cap PO EVERY 4 HRS PRN Lorazepam 0.5 Mg Tablet 1 Tab PO EVERY 6 HRS PRN Trazodone Hcl 300 Mg Tablet 400 Mg PO HS Heparin 10 Unit/10 Ml (1/Ml) (Heparin Sodium,Porcine/Pf) 1 Unit/1 Ml Disp.syrin 5,000 Unit SUBCUT/PO EVERY 8 HRS Promethazine Hcl 6.25 Mg/5 Ml Syrup 5 Ml IV TID PRN PRN Levothyroxine Sodium 100 Mcg Tablet 100 Mcg IV HS Escitalopram Oxalate 5 Mg Tablet 20 Mg PO DAILY Pantoprazole Sodium 40 Mg Tablet.dr 1 Tab PO IV Tpn Electrolytes Ii Iv Soln (Sodium/K+/Mag/Ca/Chlor/Acetate) 20 Ml Vial 20 Ml IV FENTANYL 25mcg/hr (Fentanyl) 1 Each Patch.td72 1 Patch TP Q3DAYS Hydromorphone Hcl 4 Mg Tablet 1 Tab IV QIDPRN PRN Hydromorphone Hcl 4 Mg Tablet 2 Mg PO Vitals/I & O Vital Sign - Last 24 Hours 06/12/17 06/12/17 06/12/17 11/13/17 15:00 15:48 16:10 16:10 Temp 98.4 98.4 Pulse 84 Resp 18 B/P (MAP) 147/66 (93) Pulse Ox 98 98 98 98 O2 Delivery Nasal Cannula Nasal Cannula Nasal Cannula Nasal Cannula O2 Flow Rate 2.0 2.0 2.0 2.0 06/12/17 06/12/17 06/12/17 06/12/17 19:15 20:00 20:28 23:24 Temp 98.5 98.3 98.5 98.3 Pulse 83 87 Resp 18 18 16 B/P (MAP) 153/79 (103) 127/78 (94) Pulse Ox 100 97 O2 Delivery Nasal Cannula Nasal Cannula Nasal Cannula Nasal Cannula O2 Flow Rate 2.0 2.0 2.0 2.0 06/13/17 06/13/17 06/13/17 06/13/17 02:44 05:42 06:12 07:00 Temp 98.7 98.4 98.7 98.4 Pulse 85 86 Resp 16 18 18 16 B/P (MAP) 122/74 (90) 144/63 (90) Pulse Ox 97 96 O2 Delivery Room Air Nasal Cannula Nasal Cannula Nasal Cannula O2 Flow Rate 2.0 2.0 2.0 06/13/17 06/13/17 06/13/17 07:50 10:51 13:03 Temp 98.2 98.2 Pulse 91 Resp 18 B/P (MAP) 134/78 (96) Pulse Ox 96 96 O2 Delivery Nasal Cannula Nasal Cannula Nasal Cannula O2 Flow Rate 2.0 2.0 2.0 Intake and Output 06/12/17 06/12/17 06/13/17 15:00 23:00 07:00 Intake Total 2516 ml Output Total 2000 ml Balance 516 ml Nutrition Consultation Dietary Evaluation: Recommendations by RD: Increase Calorie Intake, Protein supplementation, PPN/ TPN Comments: continue TPN: 250 g dextrose, 60 g AA, 40 g lipid added boost breeze supplements while on clear liquids Expected Outcomes/Goals: Initiation of nutrition within 24 - 48 hrs - met continue to meet > 65% nutrition needs via TPN Interpretation of weight loss: >7.5% in 3 months Malnutrition Findings: Food and Nutrition Intake (Mod: <75% est energy req 7days Weight Status: Morbidly Obese DEON RAPHAEL MD Jun 13, 2017 14:47
[2017-06-13 14:50] VITALS: BP 116/57
[2017-06-13] MEDS ORDERED: FAMOTIDINE 20 MG TABLET. PO SCH (21:00)
[2017-06-13] MEDS ORDERED: DEXTROSE 70% IV SCH ×10 (22:00)
[2017-06-13] MEDS ORDERED: [UNRECOGNIZED DRUG - OTHER] IV SCH ×10 (22:00)
[2017-06-13] MEDS ORDERED: AMINO ACIDS IV SCH ×10 (22:00)
[2017-06-13] MEDS ORDERED: TOTAL PARENTERAL NUTRITION IV SCH ×10 (22:00)
--- NOTE | 2017-06-16 13:09 | PDOC3 ---
Discharge Summary Visit Information Date of Admission: Jun 06, 2017 Date of Discharge: Jun 13, 2017 Admitting Diagnosis: ECF Final Diagnosis ECF Brief Hospital Course Allergies Allergies Coded Allergies Type Severity Reaction Last Updated Verified Penicillins Allergy Severe Anaphylaxis 05/29/17 Yes ondansetron Adverse Reaction Intermediate Nausea and Vomiting 05/29/17 Yes Brief Hospital Course Ms. Alex is a 52 old female who presented with ECF and underwent Exploratory laparotomy, extensive lysis of adhesions, Excision of enterocutaneous fistula, ileocolic resection, liver laceration repair, ventral incisional hernia repair, debridement of abdominal wall wound. Postoperatively managed medically. At discharge returned to her facility Discharge Information Condition at Discharge: Stable Follow Up: Weeks (2) Disposition/Orders: D/C to Another Facility Scheduled Acetaminophen (Acetaminophen), 650 MG PO EVERY 6 HRS PRN, (Reported) Diphenhydramine Hcl (Diphenhydramine Hcl), 1 CAP PO EVERY 4 HRS PRN, (Reported) Escitalopram Oxalate (Escitalopram Oxalate), 20 MG PO DAILY, (Reported) Fentanyl (FENTANYL 25mcg/hr), 1 PATCH TP Q3DAYS, (Reported) Heparin Sodium,Porcine/Pf (Heparin 10 Unit/10 Ml (1/Ml)), 5,000 UNIT SUBCUT/PO EVERY 8 HRS, (Reported) Levothyroxine Sodium (Levothyroxine Sodium), 100 MCG IV HS, (Reported) Lorazepam (Lorazepam), 1 TAB PO EVERY 6 HRS PRN, (Reported) Pantoprazole Sodium (Pantoprazole Sodium), 1 TAB PO IV, (Reported) Trazodone Hcl (Trazodone Hcl), 400 MG PO HS, (Reported) Scheduled PRN Hydromorphone Hcl (Hydromorphone Hcl), 1 TAB IV QIDPRN PRN for PAIN, (Reported) Promethazine Hcl (Promethazine Hcl), 5 ML IV TID PRN PRN for NAUSEA, (Reported) Miscellaneous Medications Hydromorphone Hcl (Hydromorphone Hcl), 2 MG PO, (Reported) Sodium/K+/Mag/Ca/Chlor/Acetate (Tpn Electrolytes Ii Iv Soln), 20 ML IV, ( Reported) LOUANN ESCOTO [employer] Jun 16, 2017 13:09
== END 2017-06-13 19:00 | DRG 329 ==
LOC: OPSVCIP 06:33 → 1 WEST ICU 18:20 → 4 NORTH 06-08 18:24
PROVIDERS: ADMIT Surgery; ATTEND Surgery
PROC: 0DTH0ZZ Resection of Cecum, Open Approach (ICD-10-PCS; 2017-06-06)
PROC: 0DBB0ZZ Excision of Ileum, Open Approach (ICD-10-PCS; 2017-06-06)
PROC: 0DNW0ZZ Release Peritoneum, Open Approach (ICD-10-PCS; 2017-06-06)
PROC: 0WQF0ZZ Repair Abdominal Wall, Open Approach (ICD-10-PCS; 2017-06-06)
PROC: 0FQ00ZZ Repair Liver, Open Approach (ICD-10-PCS; 2017-06-06)
PROC: 0BH17EZ Insertion of Endotracheal Airway into Trachea, Via Natural or Artificial Opening (ICD-10-PCS; 2017-06-06)
PROC: 0WBF0ZZ Excision of Abdominal Wall, Open Approach (ICD-10-PCS; principal; 2017-06-06 08:00)
PROC: 5A1935Z Respiratory Ventilation, Less than 24 Consecutive Hours (ICD-10-PCS; 2017-06-07)
DX: K63.2 Fistula of intestine (principal); J96.00 Acute respiratory failure, unspecified whether with hypoxia or hypercapnia; K65.9 Peritonitis, unspecified; S36.113A Laceration of liver, unspecified degree, initial encounter; E11.42 Type 2 diabetes mellitus with diabetic polyneuropathy; S27.819A Unspecified injury of esophagus (thoracic part), initial encounter; E66.01 Morbid (severe) obesity due to excess calories; E83.42 Hypomagnesemia; T81.30XA Disruption of wound, unspecified, initial encounter; J98.11 Atelectasis; K56.7 Ileus, unspecified; E87.2 Acidosis; C54.1 Malignant neoplasm of endometrium; D64.9 Anemia, unspecified; K21.9 Gastro-esophageal reflux disease without esophagitis; G89.29 Other chronic pain; F41.9 Anxiety disorder, unspecified; X58.XXXA Exposure to other specified factors, initial encounter; K42.9 Umbilical hernia without obstruction or gangrene; K66.0 Peritoneal adhesions (postprocedural) (postinfection); G89.18 Other acute postprocedural pain; F32.9 Major depressive disorder, single episode, unspecified; E03.9 Hypothyroidism, unspecified; G47.00 Insomnia, unspecified; K52.9 Noninfective gastroenteritis and colitis, unspecified; R63.4 Abnormal weight loss; K43.2 Incisional hernia without obstruction or gangrene; I10 Essential (primary) hypertension; E78.5 Hyperlipidemia, unspecified; E66.9 Obesity, unspecified; Z68.34 Body mass index [BMI] 34.0-34.9, adult; Z88.0 Allergy status to penicillin; Z88.8 Allergy status to other drugs, medicaments and biological substances; Z82.49 Family history of ischemic heart disease and other diseases of the circulatory system; Z86.718 Personal history of other venous thrombosis and embolism; Z90.49 Acquired absence of other specified parts of digestive tract; Z90.710 Acquired absence of both cervix and uterus; Z85.42 Personal history of malignant neoplasm of other parts of uterus; Y93.89 Activity, other specified; Y92.89 Other specified places as the place of occurrence of the external cause; Y99.8 Other external cause status
CPT/HCPCS: 36415; 36600; 71010; 74000; 80048; 80053; 81001; 82040; 82805; 82962; 83735; 84100; 84478; 85014; 85018; 85025; 85520; 85610; 85730; 86850; 86870; 86900; 86901; 86902; 86922; 87324; 87641; 88307; 94002; 94250; 94640; 94660; 94760; J0610; J0780; J1170; J1200; J1650; J1956; J2060; J2250; J2270; J2405; J2704; J2710; J2997; J3010; J3475; J3480; J3490; J7030; J7060; J7120; P9016; P9045; S0028; 97116; 97530; 97535; A4461; J2001

== ENCOUNTER → 2017-06-28 | Outpatient (CLI) | payer MEDICARE ==
[2017-06-13 14:50] VITALS: BP 116/57
[~2017-06-28] MED LIST: ACET500T68 PO; BARIUM SULFATE 60% 355 ML SUSP PO ONE; DIPH50CA PO; ESCITALOPRAM OXA5 M1 PO; FENT1PAT15 TP; HEPA1DIS12 SUBCUT/PO; HYDR4TAB IV; HYDR4TAB PO; LEVO100T5 IV; LORA0.5T PO; PANT40TA5 PO; PROM6.25 IV; SODI20VI2 IV; TRAZ300T2 PO
--- NOTE | 2017-06-28 12:26 | RAD ---
Small bowel series, 06/28/2017: History: Previous bowel resections, assess small bowel length The preliminary abdominal image demonstrates a nonspecific gas pattern. There are streaky and punctate opacities in the abdomen and pelvis, also noted on the abdominal radiograph from 06/06/2017. The stability of these findings suggest that this represents old extravasated contrast. Overhead and spot films were obtained following oral ingestion of liquid barium. 1.6 minutes of fluoroscopy time was utilized. 6 fluoroscopic spot images were recorded. The small bowel loops are of normal caliber with no evidence of thickening of their folds. The small bowel is short compatible with history of previous bowel resections. Contrast material reaches the colon at 40 minutes. A normal ileocecal junction is not visualized. There is probably an ileocolic anastomosis on the right, not clearly defined. There is no evidence of obstruction. IMPRESSION: 1. Postsurgical change as described above with shortening of the small bowel. 2. Chronic extraluminal contrast collections in the peritoneal cavity compatible with the history of previous bowel perforation.
== END | disposition home or self-care (01) ==
LOC: RAD 08:58
PROVIDERS: ATTEND Internal Medicine Gastroenterology
DX: K63.1 Perforation of intestine (nontraumatic) (principal); Z90.49 Acquired absence of other specified parts of digestive tract; Z98.890 Other specified postprocedural states
CPT/HCPCS: 74250